=== PATIENT | male | born 1960 | race Caucasian/White ===

== ENCOUNTER → 2019-12-02 08:50 | Outpatient (BNVA) | payer MEDICARE, MEDICAID, SELFPAY | PROVIDERS: Family Provider Registered Nurse; PCP Registered Nurse; Visit Provider Internal Medicine | DX: L40.0 Psoriasis vulgaris (principal); M35.3 Polymyalgia rheumatica; M15.9 Polyosteoarthritis, unspecified; Z11.1 Encounter for screening for respiratory tuberculosis; M54.9 Dorsalgia, unspecified; G89.29 Other chronic pain | CPT/HCPCS: 80076; 82565; 85025; 85651; 86140; 86431; 86480; 99214 ==

== ENCOUNTER 2019-12-14 10:17 | Outpatient (CLI) | payer MEDICARE, MEDICAID, SELFPAY ==
--- NOTE | 2019-12-14 10:27 | XRR_ITS ---
PROCEDURE INFORMATION: Exam: XR Right Hand Exam date and time: 12/14/2019 10:39 AM Age: 59 years old Clinical indication: Pain; Hand; Bilateral; Additional info: Hand pain TECHNIQUE: Imaging protocol: XR Right hand. Views: 1 or 2 views. COMPARISON: No relevant prior studies available. FINDINGS: Bones/joints: There is no acute fracture or dislocation. Severe joint space narrowing and degenerative changes are seen involving the distal interphalangeal joint of the 5th finger. Soft tissues: Normal. XR/XR hand RT 2V [id number] IMPRESSION: 1. No acute abnormality. 2. Chronic findings as discussed above.
--- NOTE | 2019-12-14 10:27 | XRR_ITS ---
PROCEDURE INFORMATION: Exam: XR Left Hand Exam date and time: 12/14/2019 10:41 AM Age: 59 years old Clinical indication: Pain; Hand; Bilateral TECHNIQUE: Imaging protocol: XR Left hand. Views: 3 or more views. COMPARISON: No relevant prior studies available. FINDINGS: Bones/joints: There is no acute fracture or dislocation. Severe joint space narrowing and degenerative changes are seen involving the distal interphalangeal joint of the 5th finger. Soft tissues: Normal. XR/XR hand LT 2V [id number] IMPRESSION: 1. No acute abnormality. 2. Chronic findings as discussed above.
--- NOTE | 2019-12-14 10:27 | XRR_ITS ---
PROCEDURE INFORMATION: Exam: XR Bilateral Hips with Pelvis when Performed Exam date and time: 12/14/2019 10:57 AM Age: 59 years old Clinical indication: Hip pain; Bilateral TECHNIQUE: Imaging protocol: XR bilateral hips with pelvis when performed. Views: 2 views. COMPARISON: No relevant prior studies available. FINDINGS: Bones/joints: There is no acute fracture or dislocation. There is marked joint space narrowing and degenerative changes involving both hips. Mild acetabula protrusio is also noted. The findings could be the result of rheumatoid arthritis. Clinical correlation is recommended. Soft tissues: Unremarkable. XR/XR hip BI m 5V wo/w pel* [id number] IMPRESSION: Marked degenerative changes of both hips. The findings could be the result of rheumatoid arthritis. Clinical correlation is recommended.
== END 2019-12-14 10:18 | disposition home or self-care (01) ==
LOC: RAD 10:23
PROVIDERS: Family Provider Registered Nurse; PCP Registered Nurse; Visit Provider Internal Medicine
DX: Z79.899 Other long term (current) drug therapy (principal); M54.9 Dorsalgia, unspecified; G89.29 Other chronic pain; M16.0 Bilateral primary osteoarthritis of hip; M79.642 Pain in left hand; M79.641 Pain in right hand
CPT/HCPCS: 73120; 73523

== ENCOUNTER → 2019-12-23 08:40 | Outpatient (BNVA) | payer MEDICARE, MEDICAID, SELFPAY | PROVIDERS: Family Provider Registered Nurse; PCP Registered Nurse; Referring Provider Registered Nurse; Visit Provider Podiatrist Foot & Ankle Surgery | DX: L84 Corns and callosities (principal); M20.21 Hallux rigidus, right foot; E11.42 Type 2 diabetes mellitus with diabetic polyneuropathy; M21.41 Flat foot [pes planus] (acquired), right foot; I73.9 Peripheral vascular disease, unspecified; M20.41 Other hammer toe(s) (acquired), right foot; M21.42 Flat foot [pes planus] (acquired), left foot; L97.512 Non-pressure chronic ulcer of other part of right foot with fat layer exposed; M20.42 Other hammer toe(s) (acquired), left foot | CPT/HCPCS: 73630 ==

== ENCOUNTER 2019-12-23 10:33 | Outpatient (CLI) | payer MEDICARE, MEDICAID, SELFPAY | END 2019-12-23 10:34 | disposition home or self-care (01) | LOC: SPT 10:33 | PROVIDERS: Family Provider Registered Nurse; PCP Registered Nurse; Visit Provider Podiatrist Foot & Ankle Surgery | DX: Z46.89 Encounter for fitting and adjustment of other specified devices (principal); L97.512 Non-pressure chronic ulcer of other part of right foot with fat layer exposed; L84 Corns and callosities; M20.21 Hallux rigidus, right foot; E11.42 Type 2 diabetes mellitus with diabetic polyneuropathy; M21.41 Flat foot [pes planus] (acquired), right foot; I73.9 Peripheral vascular disease, unspecified; M20.41 Other hammer toe(s) (acquired), right foot; M21.42 Flat foot [pes planus] (acquired), left foot; M20.42 Other hammer toe(s) (acquired), left foot | CPT/HCPCS: 73630; 97760; L4361 ==

== ENCOUNTER → 2020-01-06 08:49 | Outpatient (BNVA) | payer MEDICARE, MEDICAID, SELFPAY | PROVIDERS: Family Provider Registered Nurse; PCP Registered Nurse; Referring Provider Dermatology; Visit Provider Dermatology | DX: L40.0 Psoriasis vulgaris (principal); B07.8 Other viral warts; I83.10 Varicose veins of unspecified lower extremity with inflammation; I83.11 Varicose veins of right lower extremity with inflammation; I83.12 Varicose veins of left lower extremity with inflammation; L91.8 Other hypertrophic disorders of the skin; L98.9 Disorder of the skin and subcutaneous tissue, unspecified | CPT/HCPCS: 17000; 17003; 99203 ==

== ENCOUNTER → 2020-03-07 08:52 | Outpatient (BNVA) | payer MEDICARE, MEDICAID, SELFPAY | PROVIDERS: Family Provider Registered Nurse; PCP Registered Nurse; Visit Provider Internal Medicine | DX: L40.50 Arthropathic psoriasis, unspecified (principal); L40.0 Psoriasis vulgaris | CPT/HCPCS: 99214 ==

== ENCOUNTER 2020-06-14 08:59 | Outpatient (CLI) | payer MEDICARE, MEDICAID, SELFPAY ==
[2020-06-14 09:38] LABS: Basophils % 0.3 %; Eosinophils # 0.1 10^3/uL (0.0-0.8); Eosinophils % 0.4 %; Hematocrit 35.7 % (42.0-52.0); Hemoglobin 11.2 g/dL (11.7-16.6); Lymphocytes # 2.2 10^3/uL (0.8-4.8); Lymphocytes % 18.5 %; Mean Corpuscular HGB Conc 31.4 g/dL (30.0-36.0); Mean Corpuscular Hemoglobin 30.3 pg (28.0-34.0); Mean Corpuscular Volume 96.5 fL (80-94); Mean Platelet Volume 8.8 fL (7.4-10.4); Monocytes # 1.1 10^3/uL (0.2-0.9); Monocytes % 9.1 %; Neutrophils % 69.3 %; Nucleated Red Blood Cells % 0 %; Platelet Count 232 10^3/cmm (130-400); Red Cell Distribution Width 14.1 % (12.1-15.1); White Blood Count 11.9 10^3/uL (4.0-10.0)
[2020-06-14 11:23] LABS: LAB Peripheral Smear Sent for Review
== END 2020-06-14 09:00 | disposition home or self-care (01) ==
PROVIDERS: PCP Registered Nurse; Visit Provider Registered Nurse
DX: D72.828 Other elevated white blood cell count (principal)
CPT/HCPCS: 36415; 80500; 85025

== ENCOUNTER → 2020-07-04 08:47 | Outpatient (BNVA) | payer MEDICARE, MEDICAID, SELFPAY | PROVIDERS: PCP Registered Nurse; Visit Provider Internal Medicine | DX: L40.50 Arthropathic psoriasis, unspecified (principal); Z11.59 Encounter for screening for other viral diseases; Z79.899 Other long term (current) drug therapy; I42.8 Other cardiomyopathies | CPT/HCPCS: 99214 ==

== ENCOUNTER 2020-07-12 07:38 | Outpatient (CLI) | payer MEDICARE, MEDICAID, SELFPAY ==
--- NOTE | 2020-07-12 08:00 | USCV_ITS ---
Jose Miguel White Age: 60 Gender: M : 1960 Exam Date: 07/12/2020 08:05 Ordering Phys: Dung Stone MD Technologist: Irwin Kruse [place] [facility] [place]: SOB BP: 120 / 72 HR: 61 Rhythm: Sinus Technical Quality: Adequate MEASUREMENTS (Male / Female) Normal Values 2D ECHO LV Diastolic Diameter PLAX 6.5 cm 4.2 - 5.9 / 3.9 - 5.3 cm LV Systolic Diameter PLAX 4.8 cm IVS Diastolic Thickness 1.0 cm 0.6 - 1.0 / 0.6 - 0.9 cm IVS Systolic Thickness 1.2 cm LVPW Diastolic Thickness 1.1 cm 0.6 - 1.0 / 0.6 - 0.9 cm LVPW Systolic Thickness 1.5 cm LVOT Diameter 2.1 cm LV Ejection Fraction 2D Teich 51.9 % LV Ejection Fraction MOD 2C 63.6 % LV Ejection Fraction 2C AL 63.1 % LA Diameter 4.4 cm LA Width 4.5 cm LA Height 6.6 cm RA Width 5.0 cm RA Height 6.5 cm M-MODE LV Diastolic Diameter MM 5.9 cm 4.2 - 5.9 / 3.9 - 5.3 cm LV Systolic Diameter MM 4.2 cm LV Ejection Fraction MM Teich 54.8 % IVS Diastolic Thickness MM 1.1 cm 0.6 - 1.0 / 0.6 - 0.9 cm IVS Systolic Thickness MM 1.8 cm LVPW Diastolic Thickness MM 1.4 cm 0.6 - 1.0 / 0.6 - 0.9 cm LVPW Systolic Thickness MM 1.6 cm RV Diastolic Diameter MM 2.1 cm Aortic Annulus Diameter 3.4 cm LA Ao Ratio MM 1.4 MV E Point Septal Separation 1.2 cm DOPPLER AV Peak Velocity 161.0 cm/s LVOT Peak Velocity 87.0 cm/s AV Area Cont Eq vti 1.8 cm squared AV Area Cont Eq pk 1.9 cm squared MV Area PHT 5.0 cm squared Mitral E to A Ratio 2.4 MV E' Velocity 65.5 cm/s Mitral E to MV E' Ratio 9.6 Mitral E to LV E' Lateral Ratio 7.5 Mitral E to LV E' Septal Ratio 13.3 TR Peak Velocity 157.0 cm/s TR Peak Gradient 9.9 mmHg Right Atrial Pressure 3.0 mmHg Pulmonary Artery Systolic Pressu 12.9 mmHg FINDINGS Left Ventricle Normal left ventricular size and systolic function, EF 66 %. No regional wall motion abnormalities. Right Ventricle The right ventricle is normal in size and function. Right Atrium The right atrium is normal in size. Left Atrium The left atrium is normal in size. Mitral Valve No gross abnormalities noted Aortic Valve Thickened aortic valve. Tricuspid Valve Mild tricuspid valve regurgitation. Pulmonic Valve No gross abnormalities noted Pericardium Dilated inferior vena cava measuring 2.9 cm in diameter. It is not visualized well Aorta Normal ascending aorta dimension. CONCLUSIONS Normal left ventricular size and systolic function, EF 66 %. No regional wall motion abnormalities. Mild tricuspid valve regurgitation. Thickened aortic valve. There is no pericardial effusion. There are no intracardiac masses. The inferior vena cava appears to be dilated.-2.9 cm No pericardial effusion. Because of the difference in the technical quality, comparison with the previous study from 02/26/[address] Aram Palencia MD [facility] (Electronically Signed) Final Date: 12 July 2020 15:14 S
== END 2020-07-12 07:39 | disposition home or self-care (01) ==
LOC: US 07:38
PROVIDERS: PCP Registered Nurse; Visit Provider Internal Medicine
DX: L40.50 Arthropathic psoriasis, unspecified (principal); R06.02 Shortness of breath; I08.2 Rheumatic disorders of both aortic and tricuspid valves
CPT/HCPCS: 93306

== ENCOUNTER 2020-09-21 09:23 | Outpatient (CLI) | payer MEDICARE, MEDICAID, SELFPAY ==
--- NOTE | 2020-09-21 09:35 | XR_ITS ---
WS: [id number] CERVICAL SPINE 3 VIEWS HISTORY: CERVICAL PAIN COMPARISON: None available. Mild increase in the cervical lordosis. C2 retrolisthesis by 2 mm. C3 retrolisthesis by [address] mm[address] Mild di sc space narrowing throughout and most significant at C3-4. Hypertrophic endplate osteophytes at all levels. No fractures. Lateral masses of C1 and C2 are aligned odontoid is intact. XR/XR cervical spine 3V* [id number] IMPRESSION: 1. No cervical spine fracture. 2. Retrolisthesis of C2 and C3. 3. Disc space narrowing most significant at C3-4.
== END 2020-09-21 09:24 | disposition home or self-care (01) ==
LOC: RADWPI 09:34
PROVIDERS: PCP Registered Nurse; Visit Provider Registered Nurse
DX: M54.2 Cervicalgia (principal)
CPT/HCPCS: 72040

== ENCOUNTER → 2020-10-05 10:13 | Outpatient (BNVA) | payer MEDICARE, MEDICAID, SELFPAY | PROVIDERS: PCP Registered Nurse; Visit Provider Internal Medicine | DX: L40.50 Arthropathic psoriasis, unspecified (principal); Z79.899 Other long term (current) drug therapy; R60.9 Edema, unspecified | CPT/HCPCS: 99213 ==

== ENCOUNTER 2021-01-05 08:39 | Outpatient (CLI) | payer MEDICARE, MEDICAID, SELFPAY ==
--- NOTE | 2021-01-05 08:50 | CT_ITS ---
WS: [id number] CT cervical spine. Additional two-dimensional coronal and sagittal reconstruction was performed. 01/05 Clinical Data: CERVICAL STENOSIS OF SPINE, CERVICAL PAIN Comparison: Cervical spine, 09/21/2020. DLP: 2343.[address] scans at [facility] use at least one of these dose optimization techniques: automat ed exposure control; mA and/or kV adjustment per patient size (includes targeted exams where dose is matched to clinical indication); or iterative reconstruction. Findings: No compression fractures are seen. There is degenerative disc narrowing at C3-C4 with a 0.3 cm retrol isthesis. There is anterior osteoarthritis at C3-C4, C4-C5 and C5-C6. The spinous processes are in go od alignment. The odontoid is unremarkable. There is no prevertebral soft tissue swelling. The soft t issues of the cervical spine and the lung apices are not remarkable. C2-C3: No disc bulge, canal stenosis or foraminal stenosis is seen. C3-C4: There is a posterior disc osteophyte complex causing canal stenosis. C4-C5: No disc bulge, canal stenosis or foraminal stenosis is seen. C5-C6: There is a posterior disc osteophyte complex causing spinal stenosis C6-C7: No disc bulge, canal stenosis or foraminal stenosis is seen. C7-T1: No disc bulge, canal stenosis or foraminal stenosis is seen. CT/CT cervical spin wo con* [id number] Impression: 1. Degenerative disc narrowing at C3-C4 through 0.3 cm retrolisthesis. 2. Osteophyte disc complex at C3-C4 and C5-C6 causing spinal stenosis. 3. Multilevel osteoarthritis.
== END 2021-01-05 08:40 | disposition home or self-care (01) ==
LOC: RADWPI 08:43
PROVIDERS: PCP Registered Nurse; Visit Provider Registered Nurse
DX: M48.02 Spinal stenosis, cervical region (principal); M54.2 Cervicalgia; M47.812 Spondylosis without myelopathy or radiculopathy, cervical region; M25.78 Osteophyte, vertebrae
CPT/HCPCS: 72125

== ENCOUNTER → 2021-03-14 10:07 | Outpatient (BNVA) | payer MEDICARE, MEDICAID, SELFPAY | PROVIDERS: PCP Registered Nurse; Visit Provider Internal Medicine | DX: Z79.899 Other long term (current) drug therapy (principal); L40.50 Arthropathic psoriasis, unspecified | CPT/HCPCS: 36415; 80053; 85025; 85651; 86140 ==

== ENCOUNTER → 2021-03-27 09:44 | Outpatient (BNVA) | payer MEDICARE, MEDICAID, SELFPAY | PROVIDERS: PCP Registered Nurse; Visit Provider Internal Medicine | DX: L40.50 Arthropathic psoriasis, unspecified (principal); L40.0 Psoriasis vulgaris; R60.0 Localized edema; R70.0 Elevated erythrocyte sedimentation rate; M54.50 Low back pain, unspecified; M16.10 Unilateral primary osteoarthritis, unspecified hip | CPT/HCPCS: 99214 ==

== ENCOUNTER → 2021-09-11 09:59 | Outpatient (BNVA) | payer MEDICARE, MEDICAID, SELFPAY | PROVIDERS: PCP Registered Nurse; Visit Provider Internal Medicine Cardiovascular Disease | DX: I42.8 Other cardiomyopathies (principal); E11.65 Type 2 diabetes mellitus with hyperglycemia; I48.20 Chronic atrial fibrillation, unspecified; Z79.01 Long term (current) use of anticoagulants; I10 Essential (primary) hypertension; R60.9 Edema, unspecified | CPT/HCPCS: 99214 ==

== ENCOUNTER → 2021-09-20 09:29 | Outpatient (BNVA) | payer MEDICARE, MEDICAID, SELFPAY | PROVIDERS: PCP Registered Nurse; Visit Provider Internal Medicine | DX: L40.50 Arthropathic psoriasis, unspecified (principal); Z79.899 Other long term (current) drug therapy | CPT/HCPCS: 99213 ==

== ENCOUNTER → 2022-01-02 09:45 | Outpatient (BNVA) | payer MEDICARE, MEDICAID, SELFPAY | PROVIDERS: PCP Registered Nurse; Referring Provider Nurse Practitioner Family; Visit Provider Orthopaedic Surgery | DX: M19.011 Primary osteoarthritis, right shoulder (principal); M16.0 Bilateral primary osteoarthritis of hip; M25.511 Pain in right shoulder | CPT/HCPCS: 73030; 99204 ==

== ENCOUNTER → 2022-06-11 10:46 | Outpatient (BNVA) | payer MEDICARE, MEDICAID, SELFPAY | PROVIDERS: PCP Registered Nurse; Visit Provider Internal Medicine Cardiovascular Disease | DX: I48.20 Chronic atrial fibrillation, unspecified (principal); I42.8 Other cardiomyopathies; E11.65 Type 2 diabetes mellitus with hyperglycemia; Z79.84 Long term (current) use of oral hypoglycemic drugs; I48.0 Paroxysmal atrial fibrillation; I10 Essential (primary) hypertension | CPT/HCPCS: 99214 ==

== ENCOUNTER → 2022-07-30 08:40 | Outpatient (BNVA) | payer MEDICARE, MEDICAID, SELFPAY | PROVIDERS: PCP Registered Nurse; Referring Provider Registered Nurse; Visit Provider Orthopaedic Surgery | DX: M06.852 Other specified rheumatoid arthritis, left hip (principal); M06.851 Other specified rheumatoid arthritis, right hip | CPT/HCPCS: 73522; 99213 ==

== ENCOUNTER 2022-08-16 11:25 | Outpatient (CLI) | payer MEDICARE, MEDICAID, SELFPAY | END 2022-08-16 11:26 | disposition home or self-care (01) | LOC: RT 08-21 11:27 | PROVIDERS: PCP Registered Nurse; Visit Provider Orthopaedic Surgery | DX: Z13.6 Encounter for screening for cardiovascular disorders (principal); I44.7 Left bundle-branch block, unspecified; Q24.8 Other specified congenital malformations of heart | CPT/HCPCS: 93005 ==

== ENCOUNTER 2022-08-26 11:55 | Observation (INO) | payer MEDICARE, MEDICAID, SELFPAY ==
[2022-08-16 13:04] VITALS: BMI 43.0
--- NOTE | 2022-08-16 13:47 | ECG_ITS ---
[facility] Test Date: 2022-08-16 Pat Name: Hira White Department: Room: Gender: Male Admin Dir: : 1960 Requested By: Darrell Alan Order Number: [id number] Bright MD: Aram Palencia M.D. Measurements Intervals [place] Rate: 84 P: 0 RI: 0 QRS: -38 QRSD: 149 T: 82 QT: 374 QTc: 443 Interpretive Statements Normal sinus rhythm LEFT AXIS DEVIATION QRS AXIS < -30 LEFT BUNDLE BRANCH BLOCK 120+ ms QRS DURATION, 80+ ms Q/S IN V1/V2, 85+ ms R IN I/aVL/V5/V6 Compared to ECG 08/18/2015 11:28:52 Left bundle-branch block now present Sinus rhythm no longer present Sinus arrhythmia no longer present Intraventricular conduction delay no longer present T-wave abnormality no longer present Possible ischemia no longer present Electronically Signed On 08-16-2022 21:59:55 MANAGER NUCLEAR by Aram Palencia M.D. [id number]
[2022-08-16 13:53] LABS: Basophils % 0.5 %; Eosinophils # 0.2 10^3/uL (0.0-0.8); Eosinophils % 3.6 %; Hematocrit 36.2 % (42.0-52.0); Lymphocytes # 1.7 10^3/uL (0.8-4.8); Lymphocytes % 29.6 %; Mean Corpuscular HGB Conc 33.1 g/dL (30.0-36.0); Mean Corpuscular Volume 90.5 fl (80-94); Mean Platelet Volume 9.4 fL (7.4-10.4); Monocytes # 0.7 10^3/uL (0.2-0.9); Monocytes % 11.9 %; Neutrophils # 3.15 10^3/uL (1.8-7.7); Neutrophils % 54.1 %; Nucleated Red Blood Cells % 0 %; Platelet Count 245 10^3/cmm (130-400); Red Cell Distribution Width 12.6 % (12.1-15.1); White Blood Count 5.8 10^3/uL (4.0-10.0)
[2022-08-16 14:09] LABS: Anion Gap 16.7 (5-19); Blood Urea Nitrogen 16 mg/dL (8-23); Calcium 9.3 mg/dL (8.5-10.5); Carbon Dioxide 28 mmol/L (22-29); Chloride 96 mmol/L (98-107); Glomerular Filtration Rate 85.8 mL/min (90-130); Glucose 110 mg/dL (65-115); Osmolality Calculated 286 mOsm/kg (285-295); Potassium 3.7 mmol/L (3.5-5.1); Sodium 137 mmol/L (136-145)
--- NOTE | 2022-08-16 14:33 | ANES.PREANE2 ---
Pre-Anesthetic Assessment Height/Weight: Height 1.7 m Weight 124.738 kg Operation Date: 08/26/22 10:00 Proposed Procedures p right total hip arthroplasty/ 81071,M16.0(Right) - Shaquille Dutton MD Familial anesthetic complications: none Was Beta Iveth taken within 24 hours: N/A Was Clonidine taken within 24 hours: N/A Social No alcohol and No tobacco Exam alert, oriented x 3, clear to auscultation bilaterally and regular rate & rhythm Airway Submandibular: within normal limits Cervical ROM: within normal limits Mallampati: Class III Dentition: partials CV/HEM Atrial Fibrillation, Anemia, Congestive Heart Failure and Hypertension Cardiomyopathy is described as the following: Patient has history of cardiomyopathy.? Previous diagnostic tests include echocardiography, myocardial perfusion imaging and cardiac catheterization.? Has some dyspnea on exertion . NO orthopnea or paroxysmal nocturnal dyspnea .? Only gaining weight because of the lack of exercise Patient was found to have low EF of 30-35% by echocardiogram . A LMM was done 06/06/2015, which revealed? an LVEF? of 26%.? The coronary angiogram revealed an LV ejection fraction of 30%, in June 2015.MUGA scan done 10/03/15.? TheLV ejection fraction is 55% based on the MUGA scan. Patient has not been able to ambulate much because of the severe back pain.? He is on pain medications.? He was tried on spinal cord column stimulator.? Apparently he has no significant improvement of the symptoms.? Because of the pain, he is very much limited in his mobility. He has been noticing swelling of both lower extremities.? The dose of the diuretic was recently increased by the primary care provider.? He also had some blood tests done in the primary care provider's office.? Results are not a while.? His shortness of breath is stable Metabolic Diabetes Mellitus, Hyperlipidemia and Morbid Obesity [facility] [place] Osteoarthritis/DJD Anesthetic Plan ASA status: 3 Anesthesia: Regional (specify below) (SAB) Medications/Allergies Home Medications Medication Instructions Recorded Confirmed Last Taken Type atorvastatin 20 mg tablet 20 mg PO DAILY 12/02/19 08/16/22 08/16/22 History celecoxib 200 mg capsule (Celebrex) 200 mg PO BID 12/02/19 08/16/22 08/16/22 History hydrocodone 10 mg-acetaminophen 1 tab PO Q6H PRN Pain 12/02/19 08/16/22 08/16/22 History 325 mg tablet oxybutynin chloride 5 mg tablet 5 mg PO DAILY 12/02/19 08/16/22 08/16/22 History CAM WALKER #1 ea 12/23/19 07/30/22 Unknown Rx Diabetic Shoes #1 ea 12/23/19 07/30/22 Unknown Rx adalimumab 40 mg/0.8 mL See Rx Instructions SUBCUT 03/07/20 08/16/22 Unknown Rx subcutaneous pen kit (Humira Pen) .COMPLEX #4 ea allopurinol 100 mg tablet 100 mg PO DAILY 09/07/20 08/16/22 08/16/22 History cholecalciferol (vitamin D3) 50 50 mcg PO DAILY 03/27/21 08/16/22 08/16/22 History mcg (2,000 unit) capsule duloxetine 60 mg capsule,delayed 60 mg PO DAILY 03/27/21 08/16/22 08/16/22 History release terazosin 5 mg capsule 5 mg PO BID 03/27/21 08/16/22 08/16/22 History bumetanide 2 mg tablet 2 mg PO DAILY 09/11/21 08/16/22 08/16/22 History gabapentin 800 mg tablet 1,200 mg PO TID 09/11/21 08/16/22 08/16/22 History amiodarone 200 mg tablet 200 mg PO DAILY #90 tabs 02/11/22 08/16/22 08/16/22 Rx rivaroxaban 20 mg tablet (Xarelto) 20 mg PO DAILY #90 tabs 07/31/22 08/16/22 08/16/22 Rx semaglutide 2 mg/dose (8 mg/3 mL) mg SUBCUT 08/16/22 Unknown History subcutaneous pen injector (Ozempic) Allergies Allergy/AdvReac Type Severity Reaction Status Date / Time Penicillins Allergy ALGY-Rash Verified 08/16/22 12:56 PFS Anesthesia Medical History Afib Cardiomyopathy Chronic atrial fibrillation Chronic back pain Diabetes High risk medication use High risk medication use joint pain Hypertension Leg edema Osteoarthritis involving multiple joints on both sides of body Plaque psoriasis Hip OA -followup with Orthopedics for injections Psoriatic arthritis Vitamin D deficiency Surgical History No pertinent past surgical history Family History Father Cancer Hypertension Stroke Brother Cancer Hypertension Sister Diabetes Mother Dementia Other Rheumatoid arthritis Denies family history of Lupus CAD (coronary artery disease) Clotting disorder Chronic kidney disease (CKD) Suicide Anesthesia complication Bleeding disorder Lung disease Social History Smoking and tobacco status: never smoked Alcohol intake: never History of recent travel: Yes (travels from [facility]) Data Anesthesia 08/16/22 13:30 08/16/22 13:30 Short CBC 08/16/22 Range/Units 13:30 WBC 5.8 (4.0-10.0) 10^3/uL Hgb 12.0 (11.7-16.6) g/dL Hct 36.2 L (42.0-52.0) % MCV 90.5 (80-94) fl Plt Count 245 (130-400) 10^3/cmm Neut % (Auto) 54.1 % Neut # (Auto) 3.15 (1.8-7.7) 10^3/uL BMP 08/16/22 13:30 Sodium 137 Potassium 3.7 Chloride 96 L Carbon Dioxide 28 BUN 16 Creatinine 0.9 Glucose 110 Calcium 9.3 Cardiac Studies: Echocardiogram Ultrasound 07/12/20
[2022-08-26] VITALS (24 sets, daily range): BP systolic 103–145; BP diastolic 48–73; PULSE 61–81; RESP 14–20; TEMP 36.4–37.3; O2SAT 93–98
--- NOTE | 2022-08-26 08:39 | P.ANESUD_ITS ---
Pre-Anesthetic Update Pre-Anesthetic Assessment: Date of Surgery/Procedure: 08/26/22 Preop Karoline gnosis: Osteoarthritis right hip Proposed Procedure: Operation Date: 08/26/22 09:45 Proposed Procedures p right total hip arthroplasty/ 12833,M16.0(Right) - Shaquille Dutton MD Any changes to Pre-Anesthetic Assessment?: No Exam: Pre-Anes Outpt Exam: alert, oriented x 3, clear to auscultation bilaterally and regular rate & rhythm Cardiac Studies: Echocardiogram Ultrasound 07/12/20
[2022-08-26] MEDS: acetaminophen 500 mg Tablet 1000 MG PO ×3 (08:47→23:46)
[2022-08-26] MEDS: CELEcoxib 200 mg Capsule 400 MG PO (08:47)
[2022-08-26] MEDS: oxyCODONE 20 mg ER (12 HR) Tablet PO (08:47)
[2022-08-26] MEDS: gabapentin 300 mg Capsule PO (08:47)
[2022-08-26] MEDS: sodium chloride 0.9% 1,000 ML 30 ML IV (08:48)
[2022-08-26 08:55] LABS: Glucose Point of Care 93 mg/dL (70-110)
--- NOTE | 2022-08-26 09:25 | P.HP_ITS ---
Same Day Surgery H&P Indication for Procedure/HPI DATE OF PROCEDURE: August 26, 2022 CHIEF COMPLAINT/INDICATIONFOR SURGICAL PROCEDURE: Right hip pain here for right total hip arthroplasty PREOP DIAGNOSIS: Osteoarthritis right hip PLANNED PROCEDURE: Operation Date: 08/26/22 09:45 Proposed Procedures p right total hip arthroplasty/ 43817,M16.0(Right) - Shaquille Dutton MD 62-year-old male here for he has gradually worsening hip pain for many years, no known injuries. He states that his pain is in the lateral thigh, which radiates to the knee. He states that his pain is worse with walking, standing, sitting, bending, and twisting. He has episodic catching and popping in the hips. He has had greated throchanteric bursa cortisone injection every 3 months for years, however this has only temporary relief. He has been on Celebrex for pain/discomfort. He has tried formal PT, however that he states his pain was to severe.? He is completely dependent on walker supporting much of his body weight with his arms due to his severe hip pain he has been under the care of Dr. Stone for his psoriatic arthritis and Dr. Palencia for his atrial fibrillation.? He reports that he is lost 170 pounds with dieting alone. Medications/Allergies* Home Medications Medication Instructions Recorded Confirmed Type atorvastatin 20 mg tablet 20 mg PO DAILY 12/02/19 08/16/22 History celecoxib 200 mg capsule (Celebrex) 200 mg PO BID 12/02/19 08/16/22 History hydrocodone 10 mg-acetaminophen 1 tab PO Q6H PRN Pain 12/02/19 08/16/22 History 325 mg tablet oxybutynin chloride 5 mg tablet 5 mg PO DAILY 12/02/19 08/16/22 History allopurinol 100 mg tablet 100 mg PO DAILY 09/07/20 08/16/22 History cholecalciferol (vitamin D3) 50 50 mcg PO DAILY 03/27/21 08/16/22 History mcg (2,000 unit) capsule duloxetine 60 mg capsule,delayed 60 mg PO DAILY 03/27/21 08/16/22 History release terazosin 5 mg capsule 5 mg PO BID 03/27/21 08/16/22 History bumetanide 2 mg tablet 2 mg PO DAILY 09/11/21 08/16/22 History gabapentin 800 mg tablet 1,200 mg PO TID 09/11/21 08/16/22 History semaglutide 2 mg/dose (8 mg/3 mL) mg SUBCUT 08/16/22 History subcutaneous pen injector (Ozempic) Allergies/Adverse Reactions Allergy/AdvReac Type Severity Reaction Status Date / Time Penicillins Allergy ALGY-Rash Verified 08/26/22 08:26 Current Medications: Generic Name Dose Route Start Last Admin Trade Name Freq PRN Reason Stop Dose Admin Sodium Chloride 1,000 mls @ 30 mls/hr 08/26/22 08:30 08/26/22 08:48 Sodium Chloride 0.9% IV 08/27/22 08:29 30 mls/hr .Q24H SALLIE Administration Pertinent History/Comorbid Conditions* Medical History (Updated 06/11/22 @ 11:26 by Aram Palencia MD) Afib Cardiomyopathy Chronic atrial fibrillation Chronic back pain Diabetes High risk medication use High risk medication use joint pain Hypertension Leg edema Osteoarthritis involving multiple joints on both sides of body Plaque psoriasis Hip OA -followup with Orthopedics for injections Psoriatic arthritis Vitamin D deficiency Surgical History (Updated 09/07/20 @ 10:24 by Aram Palencia MD) No pertinent past surgical history Family History (Updated 09/07/20 @ 10:13 by Yazmin Pichardo RN) Rheumatoid arthritis Diabetes Sister Dementia Mother Cancer Father Brother Hypertension Father Brother Stroke Father Denies family history of Lupus CAD (coronary artery disease) Clotting disorder Chronic kidney disease (CKD) Suicide Anesthesia complication Bleeding disorder Lung disease Social History Smoking and tobacco status: never smoked Alcohol intake: never History of recent travel: Yes (travels from [facility]) Pertinent Exam Findings alert, oriented x 3, clear to auscultation bilaterally, regular rate & rhythm, operative site marked and procedure specific exam findings Right hip Hira is a heavyset male in no apparent distress.? He ambulates with a walker supporting much of his body weight with his arms He has veinous stasis distal to his knees but no skin breakdown. His feet are healthy and free of wounds Right hip can be flexed only to 60 degrees and he has no internal and external rotation Palpable dorsalis pedis pulses Flexes and extends toes and ankles without motor deficits Recommendations Surgery/Procedure today Coding Level of Care Code Acute Code for Chg Fwd
[2022-08-26] MEDS: ceFAZolin 2,000 MG in sodium chloride 0.9% (plus) 50 ML 100 MG IV ×2 (09:56→17:35)
[2022-08-26] MEDS: tranexamic acid 1,000 mg/10mL SDV 1000 MG IV (10:17)
[2022-08-26] MEDS: ceFAZolin 1,000 MG in sodium chloride 0.9% (plus) 50 ML 100 MG IV (10:52)
[2022-08-26] MEDS: sodium chloride 0.9% 100 mL Bag XX (10:55)
--- NOTE | 2022-08-26 12:08 | PM.OP ---
Operative Report Date of procedure: August 26, 2022 Pre-op diagnosis: Preop Diagnosis Osteoarthritis right hip Post-op diagnosis: same Post-op diagnosis: Same Procedure done: Right total hip arthroplasty Implants: 1) Laquita 60 mm Trident 2 solid back acetabular shell 2) Size 7 [place] 127 degree neck angle Accolade 2 stem 3} 28mm -2.0 standard ceramic femoral head 4} Size G MDM metal liner Pathology: none sent Surgeon: Shaquille Dutton Anesthesia: General Estimated blood loss (mL): 700 Complications: None Findings: Patient eburnation and chondrolysis of the femoral head. Some small peripheral osteophytes were present about the inferior humeral head. No osteophytes were seen about the glenoid Condition: stable Disposition: PACU Procedure: The patient was taken to the operating room and anesthesia provided by the anesthesia service. The patient was placed in the lateral position on a pegboard. A timeout was performed. The patient was draped in the usual fashion. A 15 cm long incision was made beginning just proximal to the greater trochanter and extending posteriorly to a point just distal to the trochanter on the posterior border of the trochanter. Dissection was carried down with electrocautery through the subcutaneous fat to the fascia niraj which was divided proximally and distally with curved scissors. The anterior two thirds of the gluteus medius and minimus were elevated off the hip with electrocautery. The capsule was divided in a H-like fashion. The hip was dislocated and a neck cut made just above the level of the lesser trochanter. Exposure of the acetabulum was facilitated with the acetabular retractors. Remnants of labrum and peripheral osteophytes were removed with electrocautery and a rongeur. A reamer 2 mm under the size the femoral head was utilized to ream medially to the base of the palm and are. Reaming was then increased in 1 mm intervals until a healthy rim a trabecular bone was encountered. No additional medialization was performed with the reamers. The rim was touched with the reamer the size of the final acetabular shell to be placed. A final Trident 2 acetabular cup of the same size as the final reaming was press-fit into place. The ADM liner was secured. Attention was then focused on the femur. The canal was localized with a canal finder. Broaching was then accomplished until a stable broach size was obtained. A trial reduction with the head and neck provided excellent stability. The wound was irrigated with saline and antibiotic solution. The final [place] Accolade II stem was press-fit into place. The femoral head was placed and the hip was reduced. The hip was brought through range of motion and found to be free of impingement and stable. The anterior capsule was reapproximated with 1 Ethibond. The gluteus medius and minimus were repaired through bone with 5 Ethibond and reinforced with 1 Ethibond. The fascial niraj was closed with a running 0 Stratafix suture. Deep pelvic tissues were closed with 2-0 Stratafix and the skin with a running 4-0 l Stratafix. The skin was covered with a Prineo dressing and op site dressings.
--- NOTE | 2022-08-26 12:23 | PC.NURSE ---
Pt arrived to PACU, c/o right hip pain 12/23, ice pack applied, right toes p/w/d, cap refill <3 seconds, good pedal pulse, able to wiggles toes on right foot. Pt had spinal, sensation below level L3, Pt denies any numbness except for left toes.
--- NOTE | 2022-08-26 12:27 | XR_ITS ---
WS: [id number] XR hip RT 1V wo/w pel [id number] REASON FOR EXAM: Total hip arthroplasty FINDINGS: Total right hip arthroplasty. Components of the arthroplasty are in proper position and alignment. No bony abnormality. XR/XR hip RT 1V wo/w pel [id number] IMPRESSION: Total right hip arthroplasty without abnormality.
[2022-08-26] MEDS: fentaNYL 50 mcg/mL INJ 2mL IVP ×2 (12:30→12:46)
[2022-08-26] MEDS: oxyCODONE 5 mg IR Tab/Cap 10 MG PO ×4 (14:22→23:46)
[2022-08-26] MEDS: gabapentin 400 mg Capsule 1200 MG PO ×2 (14:22→21:01)
[2022-08-26] MEDS: sodium chloride 0.9% 1,000 ML 100 ML IV ×2 (14:23→23:46)
--- NOTE | 2022-08-26 16:52 | ANE.PACU2 ---
Inpatient post-anesthesia follow up: Airway intact: Yes Vital signs: Temperature 97.7 F Pulse Rate 76 Respiratory Rate 16 Blood Pressure 109/68 Pulse Oximetry 94 Oxygen Delivery Me thod Room Air Oxygen Flow Rate 0 Fraction of Inspir ed Oxygen Hydration adequate: Yes Nausea and vomiting: No Pain level: 2 Mental status: Baseline
[2022-08-26] MEDS: terazosin 5 mg Capsule PO (17:34)
[2022-08-26] MEDS: sennosides-docusate Tablet 2 TAB PO (17:34)
[2022-08-26] MEDS: CELEcoxib 200 mg Capsule PO (21:02)
[2022-08-27] VITALS: BP 115/68; PULSE 86; RESP 17; TEMP 37.1; O2SAT 95
[2022-08-27] MEDS: ceFAZolin 2,000 MG in sodium chloride 0.9% (plus) 50 ML 100 MG IV (01:44)
[2022-08-27 05:06] LABS: Hemoglobin 9.6 g/dL (11.7-16.6)
[2022-08-27] MEDS: gabapentin 400 mg Capsule 1200 MG PO (07:56)
[2022-08-27 07:57] VITALS: RESP 16
[2022-08-27] MEDS: duloxetine 60 mg Capsule PO (07:57)
[2022-08-27] MEDS: terazosin 5 mg Capsule PO (07:57)
[2022-08-27] MEDS: sennosides-docusate Tablet 2 TAB PO (07:57)
[2022-08-27] MEDS: CELEcoxib 200 mg Capsule PO (07:57)
[2022-08-27] MEDS: oxyCODONE 5 mg IR Tab/Cap 10 MG PO (07:57)
[2022-08-27] MEDS: atorvastatin 40 mg Tablet 20 MG PO (07:58)
[2022-08-27] MEDS: allopurinol 100 mg Tablet PO (07:58)
[2022-08-27] MEDS: acetaminophen 500 mg Tablet 1000 MG PO (07:58)
[2022-08-27] MEDS: bumetanide 1 mg Tablet 2 MG PO (07:58)
[2022-08-27] MEDS: rivaroxaban 10 mg Tablet 20 MG PO (07:58)
[2022-08-27] MEDS: oxybutynin 5 mg Tablet PO (07:58)
[2022-08-27] MEDS: amiodarone 200 mg Tablet PO (07:58)
[2022-08-27 08:00] VITALS: BP 118/75; PULSE 86; RESP 16; O2SAT 95
--- NOTE | 2022-08-27 08:11 | PM.DCS ---
Discharge Providers Date of Admission: 08/26/22 11:55 Date of Discharge: August 27, 2022 Attending Provider at Admission: Shaquille Jones MD Attending Provider at Discharge: Shaquille Jones MD Primary Care Provider: Mckenna Rodriguez Diagnoses at Discharge Discharge Diagnosis (1) Status post right hip replacement: Status: Acute (2) Psoriatic arthritis: Status: Acute (3) Chronic atrial fibrillation: Status: Acute Reason for Visit Reason for Visit: M16.0 Brief History: The patient is a 62-year-old morbidly obese male with chronic hip pain secondary to degeneration. He was admitted for elective right total hip arthroplasty control pain improved function. Hospital Course Hospital Course The patient tolerated surgery well. They remained hemodynamically stable. They was begun on Xarelto and sequential compressive dressing for DVT prophylaxis. The patient was mobilized with therapy beginning the day of surgery and by the first postoperative day independent with the walker. As the pain was adequately controlled and they were fully mobile they were discharged home. Physical Exam Narrative: On the day of discharge the hip incision was clean. The incision was free of drainage. They had no particular swelling about the thigh or distal. No distal neurovascular deficits were noted. Discharge Data Studies Completed and Pending Completed Studies During Hospitalization Category Date Time Status XR hip RT 1V wo/w pel [id number] Routine Exams 08/26/22 12:27 Completed Radiology Impressions Hip X-Ray 08/26/22 12:27 IMPRESSION: Total right hip arthroplasty without abnormality. Laboratory Results WBC 5.8 10^3/uL (4.0-10.0) 08/16/22 13:30 RBC 4.00 10^6/uL (4.1-5.3) L 08/16/22 13:30 Hgb 9.6 g/dL (11.7-16.6) L 08/27/22 04:29 Hct 36.2 % (42.0-52.0) L 08/16/22 13:30 MCV 90.5 fl (80-94) 08/16/22 13:30 MCH 30.0 pg (28.0-34.0) 08/16/22 13:30 MCHC 33.1 g/dL (30.0-36.0) 08/16/22 13:30 RDW 12.6 % (12.1-15.1) 08/16/22 13:30 Plt Count 245 10^3/cmm (130-400) 08/16/22 13:30 MPV 9.4 fL (7.4-10.4) 08/16/22 13:30 Neut % (Auto) 54.1 % 08/16/22 13:30 Lymph % (Auto) 29.6 % 08/16/22 13:30 Campbell % (Auto) 11.9 % 08/16/22 13:30 Eos % (Auto) 3.6 % 08/16/22 13:30 Baso % (Auto) 0.5 % 08/16/22 13:30 Neut # (Auto) 3.15 10^3/uL (1.8-7.7) 08/16/22 13:30 Lymph # (Auto) 1.7 10^3/uL (0.8-4.8) 08/16/22 13:30 Campbell # (Auto) 0.7 10^3/uL (0.2-0.9) 08/16/22 13:30 Eos # (Auto) 0.2 10^3/uL (0.0-0.8) 08/16/22 13:30 Baso # (Auto) 0.0 10^3/uL (0.0-0.1) 08/16/22 13:30 Nucleated RBC % (auto) 0 % 08/16/22 13:30 Nucleated RBCs # 0.0 /100WBC 08/16/22 13:30 Sodium 137 mmol/L (136-145) 08/16/22 13:30 Potassium 3.7 mmol/L (3.5-5.1) 08/16/22 13:30 Chloride 96 mmol/L (98-107) L 08/16/22 13:30 Carbon Dioxide 28 mmol/L (22-29) 08/16/22 13:30 Anion Gap 16.7 (5-19) 08/16/22 13:30 BUN 16 mg/dL (8-23) 08/16/22 13:30 Creatinine 0.9 mg/dL (0.7-1.2) 08/16/22 13:30 GFR Calculation 85.8 mL/min (90-130) L 08/16/22 13:30 Glucose 110 mg/dL (65-115) 08/16/22 13:30 POC Glucose 93 mg/dL (70-110) 08/26/22 08:52 Calculated Osmolality 286 mOsm/kg (285-295) 08/16/22 13:30 Calcium 9.3 mg/dL (8.5-10.5) 08/16/22 13:30 Vitals Last Vital Signs Temp 98.8 F 08/27/22 00:00 Pulse 86 08/27/22 00:00 Resp 16 08/27/22 07:57 BP 115/68 08/27/22 00:00 Pulse Ox 95 08/27/22 00:00 O2 Del Method 08/26/22 18:10 O2 Flow Rate 0 08/26/22 10:35 Discharge Plan Discharge Patient Disposition: Home Condition: Stable Prescriptions: New oxycodone 5 mg Tablet 10 mg PO Q4H PRN (Reason: Moderate Pain) 7 Days Qty: 40 0RF Continued allopurinol 100 mg tablet 100 mg PO DAILY bumetanide 2 mg tablet 2 mg PO DAILY hydrocodone-acetaminophen 10-325 mg tablet 1 tab PO Q6H PRN (Reason: Pain) celecoxib [Celebrex] 200 mg capsule 200 mg PO BID oxybutynin chloride 5 mg tablet 5 mg PO DAILY atorvastatin 20 mg tablet 20 mg PO DAILY gabapentin 800 mg tablet 1,200 mg PO TID Humira Pen 40 mg/0.8 mL pen injector kit See Rx Instructions SUBCUT .COMPLEX Qty: 4 5RF Rx Instructions: inject one - 40 mg/0.8 mL pen every 2 weeks SUBCUT (DME) Diabetic Shoes See Rx Instructions .ROUTE .MEDSUPPLY Qty: 1 0RF Rx Instructions: As directed (DME) MIRA PLUNKETT See Rx Instructions .ROUTE .MEDSUPPLY Qty: 1 0RF Rx Instructions: As directed terazosin 5 mg capsule 5 mg PO BID cholecalciferol (vitamin D3) 50 mcg (2,000 unit) capsule 50 mcg PO DAILY duloxetine 60 mg capsule,delayed release(DR/EC) 60 mg PO DAILY amiodarone 200 mg tablet 200 mg PO DAILY Qty: 90 3RF Xarelto 20 mg tablet 20 mg PO DAILY Qty: 90 3RF Rx Instructions: must administer with evening meal Ozempic 2 mg/dose (8 mg/3 mL) Pen Injector SUBCUT Discharge Orders: Discharge Order (Routine); Ordered 08/27/22 Ordered By: Shaquille Jones Referrals: Shaquille Jones MD [Physician] - 09/10/22 10:30 am Discharge Diet: Advance as tolerated Discharge Activity: Limit activity as instructed Patient Instructions: Opioid Safety Activity Restrictions/Additional Instructions: Okay to shower. No soaking incision in tub Apply FirstIce up to 20 min/hr for pain and swelling Take oxycodone for breakthrough pain improved with hydrocodone baseline regimen Exercises per physical therapy. May weight-bear as tolerated on total hip arthroplasty IF HAVE ANY PROBLEMS OR QUESTIONS CALL [facility] SERVICE TECHNICIAN AT AND ASK TO HAVE DR. JONES PAGED. Discharge Attestations Time Spent in Discharge Care*: other Quality Metrics Clinical Quality Measures [ No reported AMI, CVA or VTE this stay] Coding Level of Care Code Acute Code for Chg Fwd Diagnoses Status post right hip replacement Z96.641 Psoriatic arthritis L40.50 Chronic atrial fibrillation I48.20
--- NOTE | 2022-08-27 08:32 | SUR.EXTENDED ---
physical therapy with patient
--- NOTE | 2022-08-27 10:16 | PC.CHAP ---
Pastoral Care Encounter/Spiritual Assessment Type of Contact [] Declined marketing services coordinator visit [] Patient/Family/Request visit [] Outpatient visit [] Follow-up visit [] Physician referral [] Code/Alert [xx] Routine visit [] Staff referral [] Actively dying [] Patient sleeping x[] Family support [] [] Out of room [] Palliative care [] [] Receiving care in room [] Pre-surgical visit [] Trauma [] Long length of stay [] ICU visit [] Other: Relational/Emotional Strength [x] Patient feels connected with others/family/visitors/staff [] Distress [] Loneliness/isolation [] Abandonment Spirituality of Patient [x] Person of Charlene [] Attends [employer]ian of their Charlene [] Believes in Prayer [] Reads Bible or Jain materials [] There are Spiritual issues to be addressed Consulting Systems Engineer Interventions [x] Prayer [x] Active listening []x Non-anxious presence [] Spiritual/emotional support [] Crisis/trauma care [] Spiritual counseling [] Bereavement support [] Provided bereavement packet [] Provided Bible/devotional materials [] Provided toy/stuffed animal, coloring book to patient or family member [] Provided Communion [] Anointing/[place] [] Salvation [x] Completed spiritual assessment [] Other: Impact on Illness or Injury [] Angry [] Fearful [] Anxious [] Often cries [] Exhaustion [] Unable to work [] Unable to attend gnosticist [] Unable to walk/stand [] Unable to read [] Unable to drive [] Unable to eat/drink [] Unable to sleep [] Unable to be with family [] Patient intubated [] Other: Summary Time spent with patient 10 min
[2022-08-27 10:31] VITALS: BP 118/75; PULSE 86; RESP 16; O2SAT 95
--- NOTE | 2022-08-27 12:18 | PC.OT ---
OT EVALUATION NOT ATTEMPTED DUE TO PATIENT DISCHARGED BEFORE EVALUATION COULD BE COMPLETED.
== END 2022-08-27 10:32 | disposition home health service (06) ==
LOC: MEDSURG 11:55
PROVIDERS: Anesthesiology; Admitting Provider Orthopaedic Surgery; PCP Registered Nurse; Visit Provider Orthopaedic Surgery
PROC: (CPT 27130; principal; 2022-08-26 09:15)
DX: M16.11 Unilateral primary osteoarthritis, right hip (principal); I11.0 Hypertensive heart disease with heart failure; I50.9 Heart failure, unspecified; I48.20 Chronic atrial fibrillation, unspecified; E11.9 Type 2 diabetes mellitus without complications; E78.5 Hyperlipidemia, unspecified; E66.01 Morbid (severe) obesity due to excess calories; Z68.41 Body mass index [BMI] 40.0-44.9, adult; Z79.899 Other long term (current) drug therapy
CPT/HCPCS: 27130; 36416; 73501; 80048; 82962; 85018; 85025; 97110; 97116; 97161; 97530; C1776; G0378; J0690; J1580; J2704; J3010; J7030

== ENCOUNTER → 2022-09-10 09:12 | Outpatient (BNVA) | payer MEDICARE, MEDICAID, SELFPAY | PROVIDERS: PCP Registered Nurse; Visit Provider Orthopaedic Surgery | DX: Z47.89 Encounter for other orthopedic aftercare (principal); Z96.641 Presence of right artificial hip joint | CPT/HCPCS: 99024 ==

== ENCOUNTER → 2022-10-08 09:40 | Outpatient (BNVA) | payer MEDICARE, MEDICAID, SELFPAY | PROVIDERS: PCP Registered Nurse; Visit Provider Orthopaedic Surgery | DX: Z47.89 Encounter for other orthopedic aftercare (principal); Z96.641 Presence of right artificial hip joint | CPT/HCPCS: 99024 ==

== ENCOUNTER 2022-10-30 01:48 | Inpatient (IN) | payer MEDICARE, MEDICAID, SELFPAY ==
[2022-10-30] VITALS (45 sets, daily range): BP systolic 63–135; BP diastolic 40–94; PULSE 69–105; RESP 10–35; TEMP 36.8–37.8; O2SAT 81–100; BMI 39.0; BMI 40.8
--- NOTE | 2022-10-30 01:56 | CTR_ITS ---
PROCEDURE INFORMATION: Exam: CT Head Without Contrast Exam date and time: 10/30/2022 2:24 AM Age: 62 years old Clinical indication: Injury or trauma; Fall; Patient HX: Patient fell at home this a. M. Landing on both knees and striking back of head on furniture. Hypotensive on monitor 62 systolic. Lactic of 4.7. Wbc of 20k. Creat of 2.8 TECHNIQUE: Imaging protocol: Computed tomography of the head without contrast. Radiation optimization: All CT scans at this facility use at least one of these dose optimization techniques: automated exposure control; mA and/or kV adjustment per patient size (includes targeted exams where dose is matched to clinical indication); or iterative reconstruction. REPORTING DATA: Count of CT and Cardiac NM exams in prior 12 months: This patient has received [address] and 0 known cardiac nuclear medicine studies in the 12 months prior to the current study. COMPARISON: CT cervical spin wo con* [id number] 01/05/2021 9:07 AM RADIATION DOSE METRICS: Total DLP (mGy-cm): 1165.51 FINDINGS: Brain: No cerebral/cerebellar infarct. No brain parenchymal or extra-axial hemorrhage. Cerebral ventricles: No ventriculomegaly. Paranasal sinuses: Paranasal sinuses are clear. No air-fluid level. Mastoid air cells: Visualized mastoid air cells are clear. Bones/joints: No calvarial or skull base fracture. Soft tissues: Unremarkable. CT/CT head wo con* [id number] IMPRESSION: 1. No acute infarct or hemorrhage. 2. No calvarial or skull base fracture.
--- NOTE | 2022-10-30 01:56 | CTR_ITS ---
PROCEDURE INFORMATION: Exam: CT Cervical Spine Without Contrast Exam date and time: 10/30/2022 2:27 AM Age: 62 years old Clinical indication: Injury or trauma; Fall; Blunt trauma; Patient HX: Patient fell at home this a. M. Landing on both knees and striking back of head on furniture. Hypotensive on monitor 62 systolic. Lactic of 4.7. Wbc of 20k. Creat of 2.8 TECHNIQUE: Imaging protocol: Computed tomography of the cervical spine without contrast. Radiation optimization: All CT scans at this facility use at least one of these dose optimization techniques: automated exposure control; mA and/or kV adjustment per patient size (includes targeted exams where dose is matched to clinical indication); or iterative reconstruction. REPORTING DATA: Count of CT and Cardiac NM exams in prior 12 months: This patient has received [address] and 0 known cardiac nuclear medicine studies in the 12 months prior to the current study. COMPARISON: CT cervical spin wo con* [id number] 01/05/2021 9:07 AM RADIATION DOSE METRICS: Total DLP (mGy-cm): 461.17 FINDINGS: Bones/joints: Craniocervical articulation is normal. There is 4 mm retrolisthesis of C3 on C4, likely degenerative with severe disc space narrowing, secondary to degenerative disease. Severe intervertebral disc space narrowing at C5-C6. The dens is intact. The lateral masses of C1 are symmetric. No fracture. Lungs: Lung apices are normal. Soft tissues: Unremarkable. CT/CT cervical spin wo con* [id number] IMPRESSION: 1. No fracture. 2. There is 4 mm retrolisthesis of C3 on C4, likely degenerative with severe disc space narrowing, secondary to degenerative disease.
--- NOTE | 2022-10-30 01:56 | XRR_ITS ---
PROCEDURE INFORMATION: Exam: XR Right Knee Exam date and time: 10/30/2022 2:11 AM Age: 62 years old Clinical indication: Injury or trauma; Fall; Blunt trauma; Right; Patient HX: Patient fell at home this a. M. Landing on both knees and striking back of head on furniture. Hypotensive on monitor 62 systolic. Lactic of 4.7. Wbc of 20k. Creat of 2.8 TECHNIQUE: Imaging protocol: Radiologic exam of the right knee. Views: 3 views. COMPARISON: No relevant prior studies available. FINDINGS: Bones/joints: Normal. Soft tissues: Normal. XR/XR knee RT 3V* [id number] IMPRESSION: No acute findings.
--- NOTE | 2022-10-30 01:56 | XRR_ITS ---
PROCEDURE INFORMATION: Exam: XR Left Knee Exam date and time: 10/30/2022 2:08 AM Age: 62 years old Clinical indication: Injury or trauma; Fall; Blunt trauma; Left; Patient HX: Patient fell at home this a. M. Landing on both knees and striking back of head on furniture. Hypotensive on monitor 62 systolic. Lactic of 4.7. Wbc of 20k. Creat of 2.8 TECHNIQUE: Imaging protocol: Radiologic exam of the left knee. Views: 3 views. COMPARISON: No relevant prior studies available. FINDINGS: Bones/joints: Normal. Soft tissues: Normal. XR/XR knee LT 3V* [id number] IMPRESSION: No acute findings.
--- NOTE | 2022-10-30 01:57 | ECG_ITS ---
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 Measurements Intervals [place] Rate: 81 P: 0 [place]: 0 QRS: -49 QRSD: 155 T: 21 QT: 416 QTc: 484 Interpretive Statements SINUS RHYTHM INTRAVENTRICULAR CONDUCTION DELAY [130+ ms QRS DURATION] POSSIBLE LATERAL MYOCARDIAL INFARCTION , PROBABLY OLD [30 ms Q WAVE IN I/aVL/V5/V6] Compared to ECG 08/16/2022 13:47:39 Intraventricular conduction delay now present Myocardial infarct finding now present Left-axis deviation no longer present Left bundle-branch block no longer present Electronically Signed On 10-30-2022 17:49:30 CDT by Rinku Mireles M.D. [id number]
--- NOTE | 2022-10-30 01:57 | XRR_ITS ---
PROCEDURE INFORMATION: Exam: XR Chest Exam date and time: 10/30/2022 2:07 AM Age: 62 years old Clinical indication: Injury or trauma; Fall; Blunt trauma (contusions or hematomas); Patient HX: Patient fell at home this a. M. Landing on both knees and striking back of head on furniture. Hypotensive on monitor 62 systolic. Lactic of 4.7. Wbc of 20k. Creat of 2.8; Additional info: Cp TECHNIQUE: Imaging protocol: Radiologic exam of the chest. Views: 1 view. COMPARISON: CR XR chest 2V* [id number] 02/09/2016 11:44 AM FINDINGS: Lungs: There are low lung volumes. Otherwise, the lungs are clear. Pleural spaces: Unremarkable. No pleural effusion. No pneumothorax. Heart/Mediastinum: There is mild cardiomegaly. Bones/joints: Unremarkable. XR/XR chest 1V portable [id number] IMPRESSION: 1. Mild cardiomegaly. 2. There are low lung volumes. Otherwise, the lungs are clear.
[2022-10-30 02:02] LABS: Hematocrit 38.1 % (42.0-52.0); Hemoglobin 12.3 g/dL (11.7-16.6); Mean Corpuscular HGB Conc 32.3 g/dL (30.0-36.0); Mean Corpuscular Hemoglobin 30.4 pg (28.0-34.0); Mean Corpuscular Volume 94.3 fl (80-94); Mean Platelet Volume 9.4 fL (7.4-10.4); Platelet Count 151 10^3/cmm (130-400); Red Blood Count 4.04 10^6/uL (4.1-5.3); Red Cell Distribution Width 13.4 % (12.1-15.1); White Blood Count 20.1 10^3/uL (4.0-10.0)
--- NOTE | 2022-10-30 02:02 | ED_ITS ---
HPI - Fall General: Chief Complaint: Fall Stated Complaint: FALL Time Seen by Provider: 10/30/22 01:52 Source: patient and EMS Mode of arrival: EMS Limitations: no limitations History of Present Illness: 62-year-old male who states that he typically walks with a walker he has had his right hip replaced is obese he states that he had tipped up out of his chair and tried to stand up and fell over. He states he had his head on some furniture he does have a laceration to posterior scalp. States he had landed on his knees going to some bilateral knee pain along with head pain he believes he did lose consciousness he does not really remember he denies any pain elsewhere. He does have chronic swelling to his legs with edema his right leg has been more swollen though he has been having some burning pain in it. Patient is severely hypotensive here his blood pressures in the 60s denies any fevers Associated symptoms-after fall: Reports headache(s); Denies abdominal pain, chest pain or neck pain Review of Systems Const: Denies: fever(s) or chills Eyes: Denies: eye discomfort ENMT: Denies: throat pain or dental pain Card: Denies: chest pain Resp: Denies: dyspnea GI: Denies: abdominal pain, nausea, vomiting or diarrhea Musc: Reports: extremity pain; Denies: neck pain or back pain Skin/Breast: Denies: rash Neuro: Reports: headache(s) PFSH ED PFSH: Medical History Afib Cardiomyopathy Chronic atrial fibrillation Chronic back pain Diabetes High risk medication use High risk medication use joint pain Hypertension Leg edema Osteoarthritis involving multiple joints on both sides of body Plaque psoriasis Hip OA -followup with Orthopedics for injections Psoriatic arthritis Vitamin D deficiency Surgical History No pertinent past surgical history Family History Father Cancer Hypertension Stroke Brother Cancer Hypertension Sister Diabetes Mother Dementia Other Rheumatoid arthritis Denies family history of Lupus CAD (coronary artery disease) Clotting disorder Chronic kidney disease (CKD) Suicide Anesthesia complication Bleeding disorder Lung disease Social History Smoking and tobacco status: never smoked Alcohol intake: never Substance/Drug Use: never Physical Exam Const: COMMON NORMALS: patient oriented x3 GENERAL APPEARANCE: ill appearing HENMT: COMMON NORMALS: normocephalic HEAD & SCALP: normocephalic OTHER: 2cm laceration to right scalp Eye: COMMON NORMALS: Equal, round and reactive pupils present and EOMs intact bilaterally PUPIL: Yes Equal, round and reactive pupils present Neck/C-Spine: COMMON NORMALS: full ROM and supple Chest: COMMONS NORMALS: normal inspection of the chest and normal palpation of entire chest wall Resp: COMMON NORMALS: normal respiratory effort, No retractions, No use of accessory muscles and clear to auscultation bilaterally AUSCULTATION: clear to auscultation bilaterally Cardio: COMMON NORMALS: regular rate, regular rhythm and No murmurs present (Cardio) RATE: regular rate RHYTHM: regular rhythm GI: COMMON NORMALS: Normal to inspection, nondistended, normoactive bowel sounds present, Soft to palpation, non-tender and no masses PALPATION: Yes Soft to palpation Extremity: COMMON NORMALS: normal to inspection and full ROM Neuro: COMMON NORMALS: patient oriented x3, moves all extremities and no focal motor deficits Psych: COMMON NORMALS: mental status grossly normal, Normal thought process present and cooperative THOUGHT PROCESS: Normal thought process present Skin: COMMON NORMALS: no wounds NARRATIVE SKIN EXAM: Swelling to right lower leg some slight erythema as well. Procedures Central Line Placement Right IJ: Time Out Performed: Yes Patient Placed on Monitor/Pulse Ox: Yes MD Prep: mask, gown and gloves Central Line Prep: Chlorhexidine scrub Local Anesthetic: lidocaine 1% Amount of anesthesia used (mL): 3 Ultrasound Used for Placement: Yes Central Line Lumen Inserted: triple Post Procedure: sutured in place, good blood return, all ports aspirated, flushed, capped and sterile dressing applied Post Procedure X-Ray: tip of catheter in good position and no pneumothorax seen Patient Tolerated Procedure: well Complications: none Laceration Laceration 1: Site: scalp Side (If applicable): right Size (cm): 2 Description: linear Depth: simple, single layer Local Anesthetic: lidocaine 1% Amount of anesthesia used (mL): 8 Pre-repair: wound explored and irrigated extensively Skin layer closed with: other (3 [place]) Course Vital Signs: Vital signs: Vital Signs Temperature 98.2 F 10/30/22 01:49 Pulse Rate 78 10/30/22 02:05 Respiratory Rate 18 10/30/22 01:49 Blood Pressure 70/40 10/30/22 02:05 Pulse Oximetry 93 10/30/22 02:06 Oxygen Delivery Me thod Room Air 10/30/22 02:06 MDM - Fall Medical Decision Making Patient presents after a fall he does have a head laceration was repaired he has no signs of any major trauma from his fall his imaging here is all normal he has been severely hypotensive blood pressures in the 60s and 70s he does have a white count of 20 and elevated lactate consistent with sepsis. Patient was given a 2 L bolus did not give more fluids due to his cardiomyopathy and already have an elevated BNP and would likely fluid overloading patient had a central line placed started on pressors along with IV antibiotics. Lab Data 10/30/22 01:55 10/30/22 01:55 Radiology Impressions Cervical Spine CT 10/30/22 01:56 IMPRESSION: 1. No fracture. 2. There is 4 mm retrolisthesis of C3 on C4, likely degenerative with severe disc space narrowing, secondary to degenerative disease. Head CT 10/30/22 01:56 IMPRESSION: 1. No acute infarct or hemorrhage. 2. No calvarial or skull base fracture. Knee X-Ray 10/30/22 01:56 IMPRESSION: No acute findings. Chest/Abdomen/Pelvis CT 10/30/22 02:09 IMPRESSION: 1. No evidence of acute injury. 2. Mild cardiomegaly. IMPRESSION: 1. No evidence of acute injury. 2. 5 mm nonobstructing left renal pelvis stone. 3. Mild constipation. 4. Multiple fat containing ventral hernias, largest is 4.5 cm. 5. Severe left hip osteoarthritis. Chest X-Ray 10/30/22 03:06 IMPRESSION: 1. Patient is rotated to the right and there is a poor inspiration. 2. Right central venous catheter with tip overlying the overlies the proximal superior vena cava. No pneumothorax. Venous Duplex 10/30/22 03:37 IMPRESSION: 1. Multiple nonspecific enlarged right inguinal lymph nodes. 2. No DVT. Laboratory Results WBC 20.1 10^3/uL (4.0-10.0) H 10/30/22 01:55 RBC 4.04 10^6/uL (4.1-5.3) L 10/30/22 01:55 Hgb 12.3 g/dL (11.7-16.6) 10/30/22 01:55 Hct 38.1 % (42.0-52.0) L 10/30/22 01:55 MCV 94.3 fl (80-94) H 10/30/22 01:55 MCH 30.4 pg (28.0-34.0) 10/30/22 01:55 MCHC 32.3 g/dL (30.0-36.0) 10/30/22 01:55 RDW 13.4 % (12.1-15.1) 10/30/22 01:55 Plt Count 151 10^3/cmm (130-400) 10/30/22 01:55 MPV 9.4 fL (7.4-10.4) 10/30/22 01:55 Lymph % (Auto) Not Reportable 10/30/22 01:55 Menard % (Auto) Not Reportable 10/30/22 01:55 Lymph # (Auto) Not Reportable 10/30/22 01:55 [place] # (Auto) Not Reportable 10/30/22 01:55 Total Counted 100 (0-100) 10/30/22 01:55 Atypical Lymphs % 0.0 % (0-5) 10/30/22 01:55 Absolute Neutrophils 18.9 10^3/cmm (1.4-6.5) H 10/30/22 01:55 Segmented Neutrophils 75 % 10/30/22 01:55 Abs Segm Neuts (Man) 15.1 10/cmm (1.6-7.1) H 10/30/22 01:55 Band Neutrophils 19.0 % 10/30/22 01:55 Abs Band Neuts (Man) 3.8 10^3/cmm (0.0-1.2) H 10/30/22 01:55 Absolute Lymphocytes 0.8 10^3/cmm (1.2-3.4) L 10/30/22 01:55 Lymphocytes (Manual) 4 % 10/30/22 01:55 Monocytes (Manual) 2.0 % 10/30/22 01:55 Absolute Monocytes 0.4 10^3/cmm (0.1-0.6) 10/30/22 01:55 Eosinophils (Manual) 0 % 10/30/22 01:55 Absolute Eosinophils 0.0 10^3/cmm (0.0-0.7) 10/30/22 01:55 Basophils (Manual) 0.0 % 10/30/22 01:55 Absolute Basophils 0.0 10^3/cmm (0.0-0.2) 10/30/22 01:55 Platelet Estimate Normal (Normal) 10/30/22 01:55 Sodium 132 mmol/L (136-145) L 10/30/22 01:55 Potassium 3.6 mmol/L (3.5-5.1) 10/30/22 01:55 Chloride 93 mmol/L (98-107) L 10/30/22 01:55 Carbon Dioxide 21 mmol/L (22-29) L 10/30/22 01:55 Anion Gap 21.6 (5-19) H 10/30/22 01:55 BUN 29 mg/dL (8-23) H 10/30/22 01:55 Creatinine 2.8 mg/dL (0.7-1.2) H 10/30/22 01:55 GFR Calculation 23.2 mL/min (90-130) L 10/30/22 01:55 Glucose 145 mg/dL (65-115) H 10/30/22 01:55 Calculated Osmolality 282 mOsm/kg (285-295) L 10/30/22 01:55 Lactic Acid 4.7 mmol/L (0.5-2.2) H* 10/30/22 02:15 Calcium 9.1 mg/dL (8.5-10.5) 10/30/22 01:55 Total Bilirubin 0.6 mg/dL (0.15-1.2) 10/30/22 01:55 AST 21 U/L (0-40) 10/30/22 01:55 ALT 18 U/L (0-41) 10/30/22 01:55 Alkaline Phosphatase 71 U/L (40-130) 10/30/22 01:55 Troponin T Baseline 48 ng/L (0-15) H 10/30/22 01:55 NT-Pro-B Natriuret Pep 1001 pg/mL (0-125) H 10/30/22 01:55 Total Protein 6.9 g/dL (6.6-8.7) 10/30/22 01:55 Albumin 3.8 g/dL (3.5-5.2) 10/30/22 01:55 Globulin 3.1 g/dL (1.3-4.6) 10/30/22 01:55 Urine Color Yellow (Yellow) 10/30/22 04:09 Urine Appearance Sl hazy (CLEAR) A 10/30/22 04:09 Urine pH 5 (5-7) 10/30/22 04:09 Ur Specific [place] 1.015 (1.005-1.030) 10/30/22 04:09 Urine Protein Neg (Negative) 10/30/22 04:09 Urine Glucose (UA) Norm (Normal) 10/30/22 04:09 Urine Ketones Negative (Negative) 10/30/22 04:09 Urine Blood Neg (Negative) 10/30/22 04:09 Urine Nitrate Negative (Negative) 10/30/22 04:09 Urine Bilirubin Neg (Negative) 10/30/22 04:09 Urine Urobilinogen Neg mg/dL (Negative) 10/30/22 04:09 Ur Leukocyte Esterase 1+ (Negative) H 10/30/22 04:09 Urine RBC 0-4 /hpf (0-2) H 10/30/22 04:09 Urine WBC 5-10 /hpf (0-5) H 10/30/22 04:09 Ur Squamous Epith Cells 0-4 /hpf (0-5) H 10/30/22 04:09 Amorphous Sediment Not Reportable 10/30/22 04:09 Urine Bacteria 3+ /hpf (NONE) H 10/30/22 04:09 Urine Mucus 2+ /hpf 10/30/22 04:09 Critical Care Time Critical Care Time: Critical Care Time: Yes Total Critical Care Time: 45 Attestation: The high probability of a clinically significant, sudden or life threatening deterioration of the patient's endo system(s) required my full and direct attention, intervention and personal management. The critical care time is as shown. This time is in addition to time spent performing any reported procedures but includes the following: [x] Data and vital sign review and interpretation [x] Patient assessment, examination and intervention [x] Documentation [x] Medication orders and management Discharge Plan Discharge Patient Disposition: Admitted As Inpatient Clinical Impression: Fall, Laceration of head, Acute cystitis, Sepsis Condition: Stable Prescriptions: No Action allopurinol 100 mg tablet 100 mg PO DAILY bumetanide 2 mg tablet 2 mg PO DAILY hydrocodone-acetaminophen 10-325 mg tablet 1 tab PO Q6H PRN (Reason: Pain) celecoxib [Celebrex] 200 mg capsule 200 mg PO BID oxybutynin chloride 5 mg tablet 5 mg PO DAILY atorvastatin 20 mg tablet 20 mg PO DAILY gabapentin 800 mg tablet 1,200 mg PO TID Humira Pen 40 mg/0.8 mL pen injector kit See Rx Instructions SUBCUT .COMPLEX Qty: 4 5RF Rx Instructions: inject one - 40 mg/0.8 mL pen every 2 weeks SUBCUT (DME) Diabetic Shoes See Rx Instructions .ROUTE .MEDSUPPLY Qty: 1 0RF Rx Instructions: As directed (DME) CAM WALKER See Rx Instructions .ROUTE .MEDSUPPLY Qty: 1 0RF Rx Instructions: As directed terazosin 5 mg capsule 5 mg PO BID cholecalciferol (vitamin D3) 50 mcg (2,000 unit) capsule 50 mcg PO DAILY duloxetine 60 mg capsule,delayed release(DR/EC) 60 mg PO DAILY amiodarone 200 mg tablet 200 mg PO DAILY Qty: 90 3RF Xarelto 20 mg tablet 20 mg PO DAILY Qty: 90 3RF Rx Instructions: must administer with evening meal Ozempic 2 mg/dose (8 mg/3 mL) Pen Injector SUBCUT Referrals: Mckenna Rodriguez [Primary Care Provider] - Coding Level of Care Code ED Spinner Hydraulic for Adithya Das
[2022-10-30] MEDS: sodium chloride 0.9% 1,000 ML 999 ML IV ×3 (02:08→10:03)
--- NOTE | 2022-10-30 02:09 | CTR_ITS ---
PROCEDURE INFORMATION: Exam: CT Chest Without Contrast; Diagnostic Exam date and time: 10/30/2022 2:31 AM Age: 62 years old Clinical indication: Injury or trauma and abnormal findings; Fall; Abnormal lab test; Abnormal kidney function lab tests and elevated wbc; Blunt trauma (contusions or hematomas); Prior surgery; Surgery date: 1-6 months; Surgery type: RT gracie; Patient HX: Patient fell at home this a. M. Landing on both knees and striking back of head on furniture. Hypotensive on monitor 62 systolic. Lactic of 4.7. Wbc of 20k. Creat of 2.8 TECHNIQUE: Imaging protocol: Diagnostic computed tomography of the chest without contrast. Radiation optimization: All CT scans at this facility use at least one of these dose optimization techniques: automated exposure control; mA and/or kV adjustment per patient size (includes targeted exams where dose is matched to clinical indication); or iterative reconstruction. REPORTING DATA: Count of CT and Cardiac NM exams in prior 12 months: This patient has received [address] and 0 known cardiac nuclear medicine studies in the 12 months prior to the current study. COMPARISON: CR (CHEST, ) 10/30/2022 2:07 AM RADIATION DOSE METRICS: Total DLP (mGy-cm): 1545.12 FINDINGS: Lungs: Unremarkable. No consolidation. No masses. Pleural spaces: Unremarkable. No pneumothorax. No pleural effusion. Heart: There is mild cardiomegaly. Coronary arteries: Mild coronary artery calcifications. Lymph nodes: Unremarkable. No enlarged lymph nodes. Vasculature: Unremarkable. No aortic aneurysm. Bones/joints: Unremarkable. No acute fracture. Soft tissues: Unremarkable. PROCEDURE INFORMATION: Exam: CT Abdomen And Pelvis Without Contrast Exam date and time: 10/30/2022 2:31 AM Age: 62 years old Clinical indication: Injury or trauma and abnormal findings; Fall; Abnormal lab test; Abnormal kidney function lab tests and elevated wbc; Blunt trauma (contusions or hematomas); Prior surgery; Surgery date: 1-6 months; Surgery type: RT gracie; Patient HX: Patient fell at home this a. M. Landing on both knees and striking back of head on furniture. Hypotensive on monitor 62 systolic. Lactic of 4.7. Wbc of 20k. Creat of 2.8 TECHNIQUE: Imaging protocol: Computed tomography of the abdomen and pelvis without contrast. Radiation optimization: All CT scans at this facility use at least one of these dose optimization techniques: automated exposure control; mA and/or kV adjustment per patient size (includes targeted exams where dose is matched to clinical indication); or iterative reconstruction. REPORTING DATA: Count of CT and Cardiac NM exams in prior 12 months: This patient has received [address] and 0 known cardiac nuclear medicine studies in the 12 months prior to the current study. COMPARISON: CR XR hip RT 1V wo/w pel [id number] 08/26/2022 11:38 AM RADIATION DOSE METRICS: Total DLP (mGy-cm): 1545.12 FINDINGS: Lungs: The lung bases are clear. No effusion Liver: Normal. No mass. Gallbladder and bile ducts: No wall thickening, pericholecystic fluid or stones. Pancreas: Normal. No ductal dilation. Spleen: Normal. No splenomegaly. Adrenal glands: Normal. No mass. Kidneys and ureters: 5 mm nonobstructing left renal pelvis stone. Stomach and bowel: Mild amount of formed stool in the colon. Appendix: No evidence of appendicitis. Intraperitoneal space: Unremarkable. No free air. No significant fluid collection. Vasculature: There is mild atherosclerotic disease. Lymph nodes: Unremarkable. No enlarged lymph nodes. Urinary bladder: Unremarkable as visualized. Reproductive: Unremarkable as visualized. Bones/joints: There is a right hip arthroplasty which obscures portions of the pelvis due to streak artifact. Severe left hip osteoarthritis. Soft tissues: Multiple fat containing ventral hernias, largest is 4.[address]/[place] [id number] IMPRESSION: 1. No evidence of acute injury. 2. Mild cardiomegaly. IMPRESSION: 1. No evidence of acute injury. 2. 5 mm nonobstructing left renal pelvis stone. 3. Mild constipation. 4. Multiple fat containing ventral hernias, largest is 4.5 cm. 5. Severe left hip osteoarthritis.
[2022-10-30 02:17] LABS: Alanine Aminotransferase 18 U/L (0-41); Albumin Level 3.8 g/dL (3.5-5.2); Alkaline Phosphatase 71 U/L (40-130); Anion Gap 21.6 (5-19); Aspartate Amino Transferase 21 U/L (0-40); Blood Urea Nitrogen 29 mg/dL (8-23); Calcium 9.1 mg/dL (8.5-10.5); Carbon Dioxide 21 mmol/L (22-29); Chloride 93 mmol/L (98-107); Globulin 3.1 g/dL (1.3-4.6); Glomerular Filtration Rate 23.2 mL/min (90-130); Glucose 145 mg/dL (65-115); Osmolality Calculated 282 mOsm/kg (285-295); Potassium 3.6 mmol/L (3.5-5.1); Sodium 132 mmol/L (136-145); Total Bilirubin 0.6 mg/dL (0.15-1.2); Total Protein 6.9 g/dL (6.6-8.7)
[2022-10-30 02:33] LABS: Slide Review Slide Review Perform
[2022-10-30 02:34] LABS: Absolute Neutrophil 18.9 10^3/cmm (1.4-6.5); Absolute Segmented Neutrophil 15.1 10/cmm (1.6-7.1); Band Neutrophils Absolute 3.8 10^3/cmm (0.0-1.2); Eosinophils 0 %; Lymphocytes 4 %; Lymphocytes Absolute 0.8 10^3/cmm (1.2-3.4); Monocytes Absolute 0.4 10^3/cmm (0.1-0.6); Platelet Estimate Normal (Normal); Segmented Neutrophils 75 %; Total Cells Counted 100 (0-100)
[2022-10-30 02:46] LABS: NT Pro B Type Natriuretic Pept 1001 pg/mL (0-125)
[2022-10-30 02:47] LABS: Troponin(5th) Baseline 48 ng/L (0-15)
[2022-10-30 02:48] LABS: Lactic Sepsis W/Reflex 4.7 mmol/L (0.5-2.2)
--- NOTE | 2022-10-30 03:06 | XRR_ITS ---
PROCEDURE INFORMATION: Exam: XR Chest Exam date and time: 10/30/2022 3:12 AM Age: 62 years old Clinical indication: Other vascular access device placement or adjustment; Central line, tunnelled; Patient HX: Check S/P central line placement TECHNIQUE: Imaging protocol: Radiologic exam of the chest. Views: 1 view. COMPARISON: [place] [id number] 10/30/2022 2:31 AM FINDINGS: Tubes, catheters and devices: Right central venous catheter with tip overlying the overlies the proximal superior vena cava. Lungs: Unremarkable. No consolidation. Pleural spaces: No pneumothorax. Heart/Mediastinum: Unremarkable. No cardiomegaly. Bones/joints: Unremarkable. Other findings: Patient is rotated to the right and there is a poor inspiration. XR/XR chest 1V portable [id number] IMPRESSION: 1. Patient is rotated to the right and there is a poor inspiration. 2. Right central venous catheter with tip overlying the overlies the proximal superior vena cava. No pneumothorax.
[2022-10-30] MEDS: aztreonam 2,000 MG in sodium chloride 0.9% (plus) 100 ML 200 MG IV (03:23)
--- NOTE | 2022-10-30 03:37 | USR_ITS ---
PROCEDURE INFORMATION: Exam: US Duplex Right Lower Extremity Veins, Limited Exam date and time: 10/30/2022 4:10 AM Age: 62 years old Clinical indication: Edema, localized; Lower extremity, right; Patient HX: Rle edema with gaiter zone pigmentation, chronic for years. ; Additional info: Swelling TECHNIQUE: Imaging protocol: Real-time duplex ultrasound of the right extremity with 2-D quesada scale, color Doppler flow and spectral waveform analysis including responses to compression and other maneuvers (when performed) with image documentation. Limited exam was focused on the right lower extremity veins. COMPARISON: [place] [id number] 10/30/2022 2:31 AM FINDINGS: Right deep veins: Unremarkable. The common femoral, femoral, proximal profunda femoral and popliteal veins are patent without thrombus. Normal Doppler waveforms. Normal compressibility and/or augmentation response. Right superficial veins: Unremarkable. Saphenofemoral junction is patent without thrombus. Soft tissues: Unremarkable. Lymph nodes: Multiple nonspecific enlarged right inguinal lymph [place]. US/[place] [id number] IMPRESSION: 1. Multiple nonspecific enlarged right inguinal lymph nodes. 2. No DVT.
[2022-10-30] MEDS: vancomycin 1,000 MG in sodium chloride 0.9% 250 ML 250 MG IV (04:01)
[2022-10-30 04:04] LABS: Reflex Lactate Order REFLEX LACTIC ORDERD
--- NOTE | 2022-10-30 04:05 | ECG_ITS ---
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 Measurements Intervals [place] Rate: 87 P: 97 [place]: 213 QRS: -49 QRSD: 153 T: 73 QT: 380 QTc: 457 Interpretive Statements SINUS RHYTHM WITH FIRST DEGREE AV BLOCK INTRAVENTRICULAR CONDUCTION DELAY [130+ ms QRS DURATION] POSSIBLE LATERAL MYOCARDIAL INFARCTION , OF INDETERMINATE AGE [30 ms Q WAVE IN I/aVL/V5/V6] Compared to ECG 10/30/2022 02:02:48 First degree AV block now present Myocardial infarct finding still present Electronically Signed On 10-30-2022 17:59:48 CDT by Rinku Mireles M.D. [email or web address]
[2022-10-30 04:27] LABS: Add Urine Microscopic? YES; Bilirubin Urine Neg (Negative); Blood Urine Neg (Negative); Glucose Urine UA Norm (Normal); Ketones Urine Negative (Negative); Leukocyte Esterase Urine 1+ (Negative); Nitrate Urine Negative (Negative); Protein Urine Neg (Negative); RBC Urine 0-4 /hpf (0-2); Specific Gravity, Urine 1.015 (1.005-1.030); Squamous Epithelial Cell Urine 0-4 /hpf (0-5); Urine Appearance SL Hazy (CLEAR); Urine Color Yellow (Yellow); Urobilinogen Urine Neg (Negative); pH Urine 5 (5-7)
[2022-10-30 04:28] LABS: Add Urine Culture? Yes; Bacteria Urine 3+ /hpf; Mucus Urine 2+ /hpf
[2022-10-30 05:17] LABS: Troponin 5 2HR 28.53 ng/L (0-15)
[2022-10-30 05:18] LABS: Lactic Acid level (Lactate) 3.4 mmol/L (0.5-2.2)
--- NOTE | 2022-10-30 06:24 | P.HP_ITS ---
Providers/Chief Complaint Admitting Physician: Aarti Brito MD Primary Care Provider: Mckenna Rodriguez Chief Complaint: FALL History of Present Illness Hira White is a 62 year old male with PMH A fib. CAD ,psoriatic arthritis on Humira, DVT, CHF presneting to ER today with c/o fall at home. Patient states that he has been feeling weak and lethargic since yesterday. Today when he went to use the bathroom, he feel and struck his head which resulted in a scalp laceration. On arrival at ER he was hypotensive with SBP 60s. Central line was placed, received sepsis bolus and started on levophed. He c/o subjective fever and chills. Denies any chest pain, cough, URI symptoms, dyspnea, palpitations, NVD. Recent history notable for Right JAIDA on 08/26/22. He appears to have chronic LE edema with stasis dermatitis. His RLE has changes of cellulitis, on asking specifically states that right leg has felt as if burning over the past 2 day. He is unable to tell me if right leg apepars abnormal compared to previosuly as he cant look at his own legs . Family currently N/a. Reports PMH cellulitis episodes, however none severe enough to warrant admission Review of Systems General: Reports: 10 or more systems reviewed and unremarkable except in HPI and below Const: Reports: fever(s) and chills; Denies: body aches Eyes: Denies: change in vision, blurry vision or photophobia ENMT: Reports: hoarseness; Denies: throat pain, enlarged tonsils, odynophagia or nasal congestion Card: Denies: chest pain, palpitations, irregular heart rhythm, edema, swelling of feet/ankles, lightheadedness, pre-syncope, dyspnea on exertion or orthopnea Resp: Denies: dyspnea, productive cough, non-productive cough, wheezing, stridor, pain on inspiration, change in phlegm color, hemoptysis or chest congestion GI: Denies: abdominal pain, nausea, vomiting, hematemesis, coffee ground emesis, dysphagia, heartburn, diarrhea, constipation, GI cramping, change in stool character, hematochezia or melena : Denies: flank pain, dysuria, urinary frequency, urinary urgency, urinary hesitancy or hematuria Musc: Denies: neck pain, back pain, extremity pain, joint swelling, joint warmth or deformity Neuro: Denies: headache(s), numbness in extremities, weakness in extremities, sensory changes, difficulty walking, frequent falls, dizziness, vertigo, behavioral changes, Slurred speech present or seizure-like activity Psych: Denies: anxiety, depression, suicidal ideation or homicidal ideation Endo: Denies: polyuria, polydipsia, tired all the time, cold intolerance or hot flashes Phill/Lymph: Denies: easy bruising or easy bleeding Medications/Allergies Home Medications Medication Instructions Recorded Confirmed Last Taken Type atorvastatin 20 mg tablet 20 mg PO DAILY 12/02/19 10/30/22 08/25/22 History celecoxib 200 mg capsule (Celebrex) 200 mg PO BID 12/02/19 10/30/22 08/25/22 His tory hydrocodone 10 mg-acetaminophen 1 tab PO Q6H PRN Pain 12/02/19 10/30/22 08/26/22 History 325 mg tablet oxybutynin chloride 5 mg tablet 5 mg PO DAILY 12/02/19 10/30/22 08/25/22 History CAM WALKER #1 ea 12/23/19 10/30/22 Unknown Rx Diabetic Shoes #1 ea 12/23/19 10/30/22 Unknown Rx adalimumab 40 mg/0.8 mL See Rx Instructions SUBCUT 03/07/20 10/30/22 08/14/22 Rx subcutaneous pen kit (Humira Pen) .COMPLEX #4 ea allopurinol 100 mg tablet 100 mg PO DAILY 09/07/20 10/30/22 08/26/22 History cholecalciferol (vitamin D3) 50 50 mcg PO DAILY 03/27/21 10/30/22 08/25/22 History mcg (2,000 unit) capsule duloxetine 60 mg capsule,delayed 60 mg PO DAILY 03/27/21 10/30/22 08/25/22 History release terazosin 5 mg capsule 5 mg PO BID 03/27/21 10/30/22 08/25/22 History bumetanide 2 mg tablet 2 mg PO DAILY 09/11/21 10/30/22 08/25/22 History gabapentin 800 mg tablet 1,200 mg PO TID 09/11/21 10/30/22 08/25/22 History amiodarone 200 mg tablet 200 mg PO DAILY #90 tabs 02/11/22 10/30/22 08/26/22 Rx rivaroxaban 20 mg tablet (Xarelto) 20 mg PO DAILY #90 tabs 07/31/22 10/30/22 08/22/22 Rx semaglutide 2 mg/dose (8 mg/3 mL) See Rx Instructions .Route .COMPLEX 08/16/22 10/30/22 08/15/22 History subcutaneous pen injector (Ozempic) testosterone cypionate 200 mg/mL See Rx Instructions .Route .COMPLEX 10/30/22 10/30/22 Unknown History intramuscular oil torsemide 10 mg tablet 10 mg PO DAILY 10/30/22 10/30/22 Unknown History Allergies Allergy/AdvReac Type Severity Reaction Status Date / Time Penicillins Allergy ALGY-Rash Verified 10/30/22 01:59 PFSH Acute PFSH: Medical History Afib Cardiomyopathy Chronic atrial fibrillation Chronic back pain Diabetes High risk medication use High risk medication use joint pain Hypertension Leg edema Osteoarthritis involving multiple joints on both sides of body Plaque psoriasis Hip OA -followup with Orthopedics for injections Psoriatic arthritis Vitamin D deficiency Surgical History No pertinent past surgical history Family History Father Cancer Hypertension Stroke Brother Cancer Hypertension Sister Diabetes Mother Dementia Other Rheumatoid arthritis Denies family history of Lupus CAD (coronary artery disease) Clotting disorder Chronic kidney disease (CKD) Suicide Anesthesia complication Bleeding disorder Lung disease Social History Smoking and tobacco status: never smoked Alcohol intake: never Substance/Drug Use: never Vitals/I&O/Wt Last Vital Signs Temp 98.2 F 10/30/22 01:49 Pulse 86 10/30/22 05:46 Resp 20 H 10/30/22 05:47 BP 103/62 10/30/22 05:47 Pulse Ox 97 10/30/22 05:47 O2 Del Method Nasal Cannula 10/30/22 05:46 O2 Flow Rate 2 10/30/22 05:46 10/29/22 10/29/22 10/30/22 14:59 22:59 06:59 Intake Total 56.896 / 56.896 Balance 56.896 / 56.896 Weight last 48 hrs Weight 125.464 kg Weight 123.377 kg Physical Exam Narrative: General: No acute distress, AO x3, dehydrated, chapped lips HEENT: PERRLA, pupils bilaterally equal and reactive, pallors not present Chest: Normal vesicular breath sounds, no added sounds, equal good air entry bilaterally CVS: S1-S2 regular, no murmurs, no tachycardia, no gallops, no rubs Abdomen: Soft, nontender, no organomegaly, bowel sounds present, easily reducible anterior hernia, just right of midline Neuro: No focal deficits, no facial deformity, AO x3, power 5/5 in all limbs Extremities: B/L LE edema, appears to be lymphedema vs venous stasis. B/L LE stasis dermatitis with purple leg dicoloartion, with changes of cellulitis in RLE Data 10/30/22 01:55 10/30/22 01:55 Micro: Microbiology 10/30/22 03:14 Blood Culture - Preliminary Blood SPECIMEN COLLECTED 10/30/22 03:21 Blood Culture - Preliminary Blood SPECIMEN COLLECTED Other data: Radiology Impressions Cervical Spine CT 10/30/22 01:56 IMPRESSION: 1. No fracture. 2. There is 4 mm retrolisthesis of C3 on C4, likely degenerative with severe disc space narrowing, secondary to degenerative disease. Head CT 10/30/22 01:56 IMPRESSION: 1. No acute infarct or hemorrhage. 2. No calvarial or skull base fracture. Knee X-Ray 10/30/22 01:56 IMPRESSION: No acute findings. Chest/Abdomen/Pelvis CT 10/30/22 02:09 IMPRESSION: 1. No evidence of acute injury. 2. Mild cardiomegaly. IMPRESSION: 1. No evidence of acute injury. 2. 5 mm nonobstructing left renal pelvis stone. 3. Mild constipation. 4. Multiple fat containing ventral hernias, largest is 4.5 cm. 5. Severe left hip osteoarthritis. Chest X-Ray 10/30/22 03:06 IMPRESSION: 1. Patient is rotated to the right and there is a poor inspiration. 2. Right central venous catheter with tip overlying the overlies the proximal superior vena cava. No pneumothorax. Venous Duplex 10/30/22 03:37 IMPRESSION: 1. Multiple nonspecific enlarged right inguinal lymph nodes. 2. No DVT. Laboratory Results WBC 20.1 10^3/uL (4.0-10.0) H 10/30/22 01:55 RBC 4.04 10^6/uL (4.1-5.3) L 10/30/22 01:55 Hgb 12.3 g/dL (11.7-16.6) 10/30/22 01:55 Hct 38.1 % (42.0-52.0) L 10/30/22 01:55 MCV 94.3 fl (80-94) H 10/30/22 01:55 MCH 30.4 pg (28.0-34.0) 10/30/22 01:55 MCHC 32.3 g/dL (30.0-36.0) 10/30/22 01:55 RDW 13.4 % (12.1-15.1) 10/30/22 01:55 Plt Count 151 10^3/cmm (130-400) 10/30/22 01:55 MPV 9.4 fL (7.4-10.4) 10/30/22 01:55 Lymph % (Auto) Not Reportable 10/30/22 01:55 Milam % (Auto) Not Reportable 10/30/22 01:55 Lymph # (Auto) Not Reportable 10/30/22 01:55 [place] # (Auto) Not Reportable 10/30/22 01:55 Total Counted 100 (0-100) 10/30/22 01:55 Atypical Lymphs % 0.0 % (0-5) 10/30/22 01:55 Absolute Neutrophils 18.9 10^3/cmm (1.4-6.5) H 10/30/22 01:55 Segmented Neutrophils 75 % 10/30/22 01:55 Abs Segm Neuts (Man) 15.1 10/cmm (1.6-7.1) H 10/30/22 01:55 Band Neutrophils 19.0 % 10/30/22 01:55 Abs Band Neuts (Man) 3.8 10^3/cmm (0.0-1.2) H 10/30/22 01:55 Absolute Lymphocytes 0.8 10^3/cmm (1.2-3.4) L 10/30/22 01:55 Lymphocytes (Manual) 4 % 10/30/22 01:55 Monocytes (Manual) 2.0 % 10/30/22 01:55 Absolute Monocytes 0.4 10^3/cmm (0.1-0.6) 10/30/22 01:55 Eosinophils (Manual) 0 % 10/30/22 01:55 Absolute Eosinophils 0.0 10^3/cmm (0.0-0.7) 10/30/22 01:55 Basophils (Manual) 0.0 % 10/30/22 01:55 Absolute Basophils 0.0 10^3/cmm (0.0-0.2) 10/30/22 01:55 Platelet Estimate Normal (Normal) 10/30/22 01:55 Sodium 132 mmol/L (136-145) L 10/30/22 01:55 Potassium 3.6 mmol/L (3.5-5.1) 10/30/22 01:55 Chloride 93 mmol/L (98-107) L 10/30/22 01:55 Carbon Dioxide 21 mmol/L (22-29) L 10/30/22 01:55 Anion Gap 21.6 (5-19) H 10/30/22 01:55 BUN 29 mg/dL (8-23) H 10/30/22 01:55 Creatinine 2.8 mg/dL (0.7-1.2) H 10/30/22 01:55 GFR Calculation 23.2 mL/min (90-130) L 10/30/22 01:55 Glucose 145 mg/dL (65-115) H 10/30/22 01:55 Calculated Osmolality 282 mOsm/kg (285-295) L 10/30/22 01:55 Lactic Acid 4.7 mmol/L (0.5-2.2) H* 10/30/22 02:15 Lactic Acid (Sepsis) 3.4 mmol/L (0.5-2.2) H 10/30/22 04:48 Calcium 9.1 mg/dL (8.5-10.5) 10/30/22 01:55 Total Bilirubin 0.6 mg/dL (0.15-1.2) 10/30/22 01:55 AST 21 U/L (0-40) 10/30/22 01:55 ALT 18 U/L (0-41) 10/30/22 01:55 Alkaline Phosphatase 71 U/L (40-130) 10/30/22 01:55 Troponin T Baseline 48 ng/L (0-15) H 10/30/22 01:55 Troponin T 120 Minute 28.53 ng/L (0-15) H 10/30/22 04:48 Delta Troponin T -19.47 ABS# (0-10) L 10/30/22 04:48 Troponin T Hi Sens 6Hr 32.22 ng/L (0-15) H 10/30/22 08:36 Troponin T Hi Sens 6Hr Delta -15.78 ng/L (0-12) L 10/30/22 08:36 NT-Pro-B Natriuret Pep 1001 pg/mL (0-125) H 10/30/22 01:55 Total Protein 6.9 g/dL (6.6-8.7) 10/30/22 01:55 Albumin 3.8 g/dL (3.5-5.2) 10/30/22 01:55 Globulin 3.1 g/dL (1.3-4.6) 10/30/22 01:55 Vitamin B12 408 pg/mL (232-1245) 10/30/22 08:36 TSH 2.21 uIU/mL (0.27-4.20) 10/30/22 08:36 Urine Color Yellow (Yellow) 10/30/22 04:09 Urine Appearance Sl hazy (CLEAR) A 10/30/22 04:09 Urine pH 5 (5-7) 10/30/22 04:09 Ur Specific [place] 1.015 (1.005-1.030) 10/30/22 04:09 Urine Protein Neg (Negative) 10/30/22 04:09 Urine Glucose (UA) Norm (Normal) 10/30/22 04:09 Urine Ketones Negative (Negative) 10/30/22 04:09 Urine Blood Neg (Negative) 10/30/22 04:09 Urine Nitrate Negative (Negative) 10/30/22 04:09 Urine Bilirubin Neg (Negative) 10/30/22 04:09 Urine Urobilinogen Neg mg/dL (Negative) 10/30/22 04:09 Ur Leukocyte Esterase 1+ (Negative) H 10/30/22 04:09 Urine RBC 0-4 /hpf (0-2) H 10/30/22 04:09 Urine WBC 5-10 /hpf (0-5) H 10/30/22 04:09 Ur Squamous Epith Cells 0-4 /hpf (0-5) H 10/30/22 04:09 Amorphous Sediment Not Reportable 10/30/22 04:09 Urine Bacteria 3+ /hpf (NONE) H 10/30/22 04:09 Urine Mucus 2+ /hpf 10/30/22 04:09 A&P Assessment and plan (1) Septic shock: Admit to ICU in view of septic shock as evidenced by fever, tachycardia, elevated lactate, hypotension, leukocytsois, end organ dysfunction (MERLY) and source of infection by way of cellulitis blood cx taken prior to abx initiation received sepsis bolus in ER with persisting hypotension, now on levophed 10 Clinically dehydrated, started IVF NS @ 125 cc/ hr closely monitor for signs of hypervolemia given h/o CHF empirically recieved aztreonam thus far, change to cefepime and vancomycin , both renally dosed (2) Cellulitis of right leg: started on cefepime and vancomycin (3) MERLY (acute kidney injury): likely 2/2 ATN from sepsis, hypotension CT abdomen with non obstrcutuing renal calculus Place glass to circumvent potential bladder outlet obstruction and measure accurate urine output in sepsis (4) Fall: likely from hypotension CT head and CT c spine without bleed, fracture or dislocation (5) Laceration of head: from fall s/p [place] in ER right posterior scalp CT head without intracranial injury (6) Chronic atrial fibrillation: currently rate controlled hold xarelto given scalp laceration with excessive bleeding (7) Cardiomyopathy: unknown last EF check echo currently dehydrated , holding diuretics incl bumex and torsemide Qualifiers: Cardiomyopathy type: other Qualified Code(s): I42.8 - Other cardiomyopathies (8) Plaque psoriasis: Hold Humira Attestations Medical Necessity Statement*: > 2 midnight admission anticipated for septc shock, iv abx, fluids, pressors Critical Care Time: The high probability of a clinically significant, sudden or life threatening deterioration of the patient's [renal, infectious, cardiac] system(s) required my full and direct attention, intervention and personal management. The critical care time is as shown. This time is in addition to time spent performing any reported procedures but includes the following: [x] Data and vital sign review and interpretation [x] Patient assessment, examination and intervention [x] Documentation [x] Medication orders and management Critical Care Time (min): 70 Coding Level of Care Code Critical Care >/= 30 minutes Diagnoses Septic shock A41.9; R65.21 Cellulitis of right leg L03.115 MERLY (acute kidney injury) N17.9 Fall W19.XXXA Laceration of head S01.91XA Chronic atrial fibrillation I48.20 Cardiomyopathy I42.8 Cardiomyopathy type: other Plaque psoriasis L40.0
--- NOTE | 2022-10-30 06:34 | PC.PHAR ---
Vanc trough drawn before the 3rd dose Patient: Floor: Age: 62 yo Serum creatinine: 2.8 mg/dL Height: 68.9 Inches Weight (kg): 125 IBW (kg): 70.47 Dosing wt(kg): 92.3 Estimated Creatinine clearance (ml/min): 36.2 CRCL method: Cockcroft and Gault using adjusted body weight Drug selected: Vancomycin Loading dose (mg): Vd (liters): 64.6 (factor used: 0.7 L/kg) Natan (hr-1): 0.034 Half life (hrs): 20.39 CLvanco=?? 2.196 L/hr Recommended dose: 1500 mg Interval: 24 hrs Infusion time (hrs): 1 Predicted peak (mcg/mL): 40.9 Predicted trough (mcg/mL): 18.71 Adjusted body weight was selected for vancomycin dosing. To switch back, select the total body weight option above. Recommendations: Give Vancomycin 1500 mg q 24 hrs with an expected Cpeak of 40.9 mcg/ml and an expected Ctrough of 18.71 mcg/ml AUC 0-24 /PETER Data: PETER 0.5 mcg/mL:?? AUC/PETER:? 1366.1 PETER 1.0 mcg/mL:?? AUC/PETER:? 683.1 --------- PETER 1.5 mcg/mL:?? AUC/PETER:? 455.4 PETER 2.0 mcg/mL:?? AUC/PETER:? 341.5 Renal dosing of other antibiotics (review renal dosing of other medications and list guidelines here): Thank you for the consult, will continue to follow. Signature: Josué Martinez, RachelD
[2022-10-30] MEDS: sodium chloride 0.9% 1,000 ML 75 ML IV ×2 (06:42→13:44)
[2022-10-30] MEDS: HYDROcodone-acetaminophen 10-325 mg Tablet 1 TAB PO ×2 (07:27→16:17)
--- NOTE | 2022-10-30 08:05 | ECG_ITS ---
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 Measurements Intervals [place] Rate: 82 P: 85 VA: 216 QRS: -43 QRSD: 144 T: 39 QT: 388 QTc: 455 Interpretive Statements SINUS RHYTHM WITH FIRST DEGREE AV BLOCK LEFT AXIS DEVIATION [QRS AXIS < -30] INTRAVENTRICULAR CONDUCTION DELAY [130+ ms QRS DURATION] Compared to ECG 10/30/2022 04:45:47 Left-axis deviation now present Myocardial infarct finding no longer present Electronically Signed On 10-30-2022 17:59:30 CDT by Rinku Mireles M.D. [id number]
[2022-10-30] MEDS: morphine 4 mg/mL SDV 1 mL 2 MG IVP (08:16)
[2022-10-30] MEDS: pantoprazole DR 40 mg Tablet PO (08:19)
[2022-10-30] MEDS: amiodarone 200 mg Tablet PO (08:19)
[2022-10-30] MEDS: gabapentin 400 mg Capsule 1200 MG PO (08:19)
[2022-10-30] MEDS: duloxetine 60 mg Capsule PO (08:19)
--- NOTE | 2022-10-30 08:39 | USCV_ITS ---
Hira White Age: 62 Gender: M : 1960 Exam Date: 10/30/2022 17:01 Ordering Phys: Abdirahman Schuler MD Technologist: CT Exam Location: [facility] [place] Indication: BP: 90 / 60 HR: 94 Rhythm: Sinus Technical Quality: Adequate MEASUREMENTS (Male / Female) Normal Values 2D ECHO LV Diastolic Diameter PLAX 6.0 cm 4.2 - 5.9 / 3.9 - 5.3 cm LV Systolic Diameter PLAX 4.0 cm IVS Diastolic Thickness 1.1 cm 0.6 - 1.0 / 0.6 - 0.9 cm IVS Systolic Thickness 2.4 cm LVPW Diastolic Thickness 1.5 cm 0.6 - 1.0 / 0.6 - 0.9 cm LVPW Systolic Thickness 1.3 cm LVOT Diameter 2.1 cm LV Ejection Fraction 2D Teich 60.5 % LV Ejection Fraction MOD 2C 51.7 % LV Ejection Fraction 2C AL 53.9 % LA Diameter 4.2 cm Aorta at Sinotubular Diameter 3.3 cm M-MODE Aortic Annulus Diameter 4.1 cm LA Ao Ratio MM 1.0 MV E Point Septal Separation 1.3 cm DOPPLER AV Peak Velocity 122.7 cm/s LVOT Peak Velocity 223.0 cm/s AV Area Cont Eq vti 6.7 cm squared AV Area Cont Eq pk 6.5 cm squared MV Peak Velocity 126.0 cm/s MV Area PHT 5.0 cm squared Mitral E to A Ratio 1.3 MV E' Velocity 65.5 cm/s Mitral E to MV E' Ratio 8.6 Mitral E to LV E' Lateral Ratio 6.8 Mitral E to LV E' Septal Ratio 11.7 TR Peak Velocity 133.7 cm/s TR Peak Gradient 7.2 mmHg TR Mean Velocity 113.7 cm/s TR Mean Gradient 5.2 mmHg TR Velocity Time Integral 19.4 cm TV Peak E Velocity 77.0 cm/s Right Atrial Pressure 3.0 mmHg Pulmonary Artery Systolic Pressu 10.2 mmHg PV Peak Velocity 108.0 cm/s FINDINGS Left Ventricle Normal left ventricular size and systolic function, EF 55 %. Mild left ventricular hypertrophy.no regional wall motion abnormalities. Right Ventricle The right ventricle is normal in size and function. Right Atrium The right atrium is normal in size. Left Atrium The left atrium is normal in size. Mitral Valve No gross abnormalities noted Aortic Valve Thickened aortic valve. Elevated LVOT velocity of 2.1 m/s. Aortic valve velocity of 1.84 m/s Tricuspid Valve Trace tricuspid valve regurgitation. Pulmonic Valve Pulmonic valve not well visualized. Pericardium Normal pericardium without effusion. Aorta Normal ascending aorta dimension. IVC Inferior vena cava not visualized. CONCLUSIONS Normal left ventricular size and systolic function, EF 55 %. Mild left ventricular hypertrophy.no regional wall motion abnormalities. Elevated LV outflow tract velocity suggesting mild LV outflow obstruction. Features of aortic valve sclerosis with a peak velocity of 1.84 m/s. Trace tricuspid valve regurgitation. There is no pericardial effusion. Technically difficult study because of the poor ultrasonic window. Dr Aram Palencia MD FACC (Electronically Signed) Final Date: 31 Oct 2022 13:24 S
[2022-10-30 09:18] LABS: Troponin 5 6HR 32.22 ng/L (0-15)
--- NOTE | 2022-10-30 09:45 | MRR_ITS ---
PROCEDURE INFORMATION: Exam: MR Cervical Spine Without Contrast Exam date and time: 10/30/2022 5:57 PM Age: 62 years old Clinical indication: Neck pain; Additional info: Post fall neck pain, TECHNIQUE: Imaging protocol: Magnetic resonance imaging of the cervical spine without contrast. COMPARISON: CT cervical spin wo con* [id number] 10/30/2022 2:27 AM FINDINGS: Bones/joints: The vertebral body stature is maintained. No fracture. Severe disc space narrowing at C3-C4 with 4 mm retrolisthesis of C3 on C4. The facets are intact with degenerative changes, greatest at C3-C4. Spinal cord: Normal signal. No cord compression. C2-C3: No significant disc bulge or herniation. No severe spinal canal stenosis. No significant neural foraminal narrowing. C3-C4: Retrolisthesis. No significant disc bulge. Severe right foraminal stenosis. Mild left foraminal stenosis. Mild-moderate central canal stenosis. C4-C5: No significant disc bulge or herniation. No severe spinal canal stenosis. No significant neural foraminal narrowing. C5-C6: Posterior disc bulge. Mild-moderate central canal stenosis. Moderate bilateral foraminal stenosis. C6-C7: Trace posterior disc bulge. No central canal stenosis. No foraminal stenosis. C7-T1: No significant disc bulge or herniation. No severe spinal canal stenosis. No significant neural foraminal narrowing. Soft tissues: Unremarkable. Vasculature: Expected flow voids in the vertebral arteries. MR/MR cervical spin wo con* [id number] IMPRESSION: 1. No fracture or acute finding. 2. Discogenic and facet degenerative changes at C3-C4 with retrograde subluxation of C3. 3. The most significant central canal stenosis is mild-moderate at C3-C4 and C5-C6. 4. The most significant foraminal stenosis is severe on the right at C3-C4 and moderate bilaterally at C5-C6.
--- NOTE | 2022-10-30 09:45 | PC.CHAP ---
Pastoral Care Encounter/Spiritual Assessment Type of Contact [] Declined marketing strategist visit [] Patient/Family/Request visit [] Outpatient visit [] Follow-up visit [] Physician referral [] Code/Alert [x] Routine visit [] Staff referral [] Actively dying [x [] Out of room [] Palliative care [] [] Receiving care in room [] Pre-surgical visit [] Trauma [] Long length of stay [] ICU visit [] Other: Relational/Emotional Strength [] Patient feels connected with others/family/visitors/staff [] Distress [] Loneliness/isolation [] Abandonment Spirituality of Patient [] Person of Charlene [] Attends [facility] of their Charlene [] Believes in Prayer [] Reads Bible or Oriental Orthodox materials [] There are Spiritual issues to be addressed Social Services Manager Interventions [x] Prayer [] Active listening [] Non-anxious presence [] Spiritual/emotional support [] Crisis/trauma care [] Spiritual counseling [] Bereavement support [] Provided bereavement packet [] Provided Bible/devotional materials [] Provided toy/stuffed animal, coloring book to patient or family member [] Provided Communion [] Anointing/Taylor [] Salvation [x] Completed spiritual assessment [] Other: Impact on Illness or Injury [] Angry [] Fearful [] Anxious [] Often cries [] Exhaustion [] Unable to work [] Unable to attend bahai [] Unable to walk/stand [] Unable to read [] Unable to drive [] Unable to eat/drink [] Unable to sleep [] Unable to be with family [] Patient intubated [] Other: Summary Time spent with patient
[2022-10-30] MEDS: HYDROmorphone 1 mg/mL INJ 1 mL 0.4 MG IVP ×2 (10:00→20:01)
[2022-10-30] MEDS: cefepime 1,000 MG in sodium chloride 0.9% (plus) 50 ML 100 MG IV ×2 (10:06→21:38)
[2022-10-30] MEDS: atorvastatin 40 mg Tablet 20 MG PO (10:19)
[2022-10-30] MEDS: terazosin 5 mg Capsule PO ×2 (10:20→17:22)
[2022-10-30 10:56] LABS: Thyroid Stimulating Hormone 2.21 uIU/mL (0.27-4.20); Vitamin B12 408 pg/mL (232-1245)
[2022-10-30 11:07] LABS: Iron 15 ug/dL (59-158); Percent Saturation 6.7 % (20-50); Total Iron Binding Capacity 221 mcg/dl; Unsaturated Iron Binding 206 ug/dL (112-347)
--- NOTE | 2022-10-30 11:15 | PM.CONSULT ---
Providers/Reason For Consult Consulting Physician/Specialty*: Ortho Spine Reason for Consult*: Neck pain Attending Physician: Abdirahman Schuler MD Primary Care Provider: Mckenna Rodriguez History of Present Illness History of Present Illness Hira Whtie is a 62 year old male presented to [facility] following a fall at home. He hit his head has complained of neck pain since the fall. States he passed out on his way to the restroom was not sure if he fell asleep but fell and hit his head. He denies any arm pain although he has had an arthritic shoulder on the right side which is his dominant extremity. Orthopedics was consulted as he was in the ICU room 8. Continues to have sharp stabbing pain in his neck with any movement making it much worse. Rest gives him some temporary relief. He denies any arm pain denies any leg pain although he has arthritic left hip that is scheduled for surgery. He wiggles all toes. Rest is given him some temporary relief. Any movement of his head causes sharp stabbing pain in his neck. Review of Systems General: Reports: 10 or more systems reviewed and unremarkable except in HPI and below Const: Reports: fever(s) and chills; Denies: body aches Eyes: Denies: change in vision, blurry vision or photophobia ENMT: Reports: hoarseness; Denies: throat pain, enlarged tonsils, odynophagia or nasal congestion Card: Denies: chest pain, palpitations, irregular heart rhythm, edema, swelling of feet/ankles, lightheadedness, pre-syncope, dyspnea on exertion or orthopnea Resp: Denies: dyspnea, productive cough, non-productive cough, wheezing, stridor, pain on inspiration, change in phlegm color, hemoptysis or chest congestion GI: Denies: abdominal pain, nausea, vomiting, hematemesis, coffee ground emesis, dysphagia, heartburn, diarrhea, constipation, GI cramping, change in stool character, hematochezia or melena : Denies: flank pain, dysuria, urinary frequency, urinary urgency, urinary hesitancy or hematuria Musc: Denies: neck pain, back pain, extremity pain, joint swelling, joint warmth or deformity Neuro: Denies: headache(s), numbness in extremities, weakness in extremities, sensory changes, difficulty walking, frequent falls, dizziness, vertigo, behavioral changes, Slurred speech present or seizure-like activity Psych: Denies: anxiety, depression, suicidal ideation or homicidal ideation Endo: Denies: polyuria, polydipsia, tired all the time, cold intolerance or hot flashes Phill/Lymph: Denies: easy bruising or easy bleeding Medications/Allergies Home Medications Medication Instructions Recorded Confirmed Last Taken Type atorvastatin 20 mg tablet 20 mg PO DAILY 12/02/19 10/30/22 08/25/22 History celecoxib 200 mg capsule (Celebrex) 200 mg PO BID 12/02/19 10/30/22 08/25/22 History hydrocodone 10 mg-acetaminophen 1 tab PO Q6H PRN Pain 12/02/19 10/30/22 08/26/22 History 325 mg tablet oxybutynin chloride 5 mg tablet 5 mg PO DAILY 12/02/19 10/30/22 08/25/22 History CAM WALKER #1 ea 12/23/19 10/30/22 Unknown Rx Diabetic Shoes #1 ea 12/23/19 10/30/22 Unknown Rx adalimumab 40 mg/0.8 mL See Rx Instructions SUBCUT 03/07/20 10/30/22 08/14/22 Rx subcutaneous pen kit (Humira Pen) .COMPLEX #4 ea allopurinol 100 mg tablet 100 mg PO DAILY 09/07/20 10/30/22 08/26/22 History cholecalciferol (vitamin D3) 50 50 mcg PO DAILY 03/27/21 10/30/22 08/25/22 History mcg (2,000 unit) capsule duloxetine 60 mg capsule,delayed 60 mg PO DAILY 03/27/21 10/30/22 08/25/22 History release terazosin 5 mg capsule 5 mg PO BID 03/27/21 10/30/22 08/25/22 History bumetanide 2 mg tablet 2 mg PO DAILY 09/11/21 10/30/22 08/25/22 History gabapentin 800 mg tablet 1,200 mg PO TID 09/11/21 10/30/22 08/25/22 History amiodarone 200 mg tablet 200 mg PO DAILY #90 tabs 02/11/22 10/30/22 08/26/22 Rx rivaroxaban 20 mg tablet (Xarelto) 20 mg PO DAILY #90 tabs 07/31/22 10/30/22 08/22/22 Rx semaglutide 2 mg/dose (8 mg/3 mL) See Rx Instructions .Route .COMPLEX 08/16/22 10/30/22 08/15/22 History subcutaneous pen injector (Ozempic) testosterone cypionate 200 mg/mL See Rx Instructions .Route .COMPLEX 10/30/22 10/30/22 Unknown History intramuscular oil torsemide 10 mg tablet 10 mg PO DAILY 10/30/22 10/30/22 Unknown History Allergies Allergy/AdvReac Type Severity Reaction Status Date / Time Penicillins Allergy ALGY-Rash Verified 10/30/22 01:59 Current Medications Generic Name Dose Route Start Last Admin Trade Name Freq PRN Reason Stop Dose Admin Hydrocodone Bitart/Acetaminophen 1 tab 10/30/22 06:23 10/30/22 07:27 Hydrocodone-Acetaminophen 10-325 Mg Tablet PO 1 tab Q6H PRN Administration MODERATE PAIN Amiodarone HCl 200 mg 10/30/22 09:00 10/30/22 08:19 Amiodarone 200 Mg Tablet PO 200 mg DAILY SALLIE Administration Atorvastatin Calcium 20 mg 10/30/22 09:00 10/30/22 10:19 Atorvastatin 40 Mg Tablet PO 20 mg DAILY SALLIE Administration Duloxetine HCl 60 mg 10/30/22 09:00 10/30/22 08:19 Duloxetine 60 Mg Capsule PO 60 mg DAILY SALLIE Administration Hydromorphone HCl 0.4 mg 10/30/22 09:45 10/30/22 10:00 Hydromorphone 1 Mg/Ml Inj 1 Ml IVP 0.4 mg Q4H PRN Administration BREAKTHROUGH PAIN Norepinephrine Bitartrate 4 mg 254 mls @ 0 mls/hr 10/30/22 02:45 10/30/22 07:39 / Dextrose IV 8 mcg/min .Q0M SALLIE 30.48 mls/hr Titration Protocol Per Protocol Sodium Chloride 1,000 mls @ 125 mls/hr 10/30/22 06:30 10/30/22 06:42 Sodium Chloride 0.9% IV 75 mls/hr .Q8H SALLIE Administration Cefepime HCl 1,000 mg/ Sodium 50 mls @ 100 mls/hr 10/30/22 10:00 10/30/22 11:04 Chloride IV Infused Q12H SALLIE Infusion Protocol Pantoprazole Sodium 40 mg 10/30/22 09:00 10/30/22 08:[address] 40 Mg Tablet PO 40 mg DAILY SALLIE Administration Terazosin HCl 5 mg 10/30/22 09:00 10/30/22 10:20 Terazosin 5 Mg Capsule PO 5 mg BID SALLIE Administration PFSH Acute PFSH: Medical History Afib Cardiomyopathy Chronic atrial fibrillation Chronic back pain Diabetes High risk medication use High risk medication use joint pain Hypertension Leg edema Osteoarthritis involving multiple joints on both sides of body Plaque psoriasis Hip OA -followup with Orthopedics for injections Psoriatic arthritis Vitamin D deficiency Surgical History No pertinent past surgical history Family History Father Cancer Hypertension Stroke Brother Cancer Hypertension Sister Diabetes Mother Dementia Other Rheumatoid arthritis Denies family history of Lupus CAD (coronary artery disease) Clotting disorder Chronic kidney disease (CKD) Suicide Anesthesia complication Bleeding disorder Lung disease Social History Smoking and tobacco status: never smoked Alcohol intake: never Substance/Drug Use: never Vitals/I&O/Wt Last Vital Signs Temp 99.1 F 10/30/22 07:03 Pulse 69 10/30/22 09:41 Resp 19 H 10/30/22 10:00 BP 113/63 10/30/22 06:30 Pulse Ox 99 10/30/22 10:00 O2 Del Method Room Air 10/30/22 09:41 O2 Flow Rate 2 10/30/22 05:46 10/29/22 10/30/22 10/30/22 22:59 06:59 14:59 Intake Total 56.896 / 56.896 145.25 / 145.25 Balance 56.896 / 56.896 145.25 / 145.25 Weight last 48 hrs Weight 276 lb 9.6 oz Weight 272 lb Physical Exam Narrative: Patient is alert orient x3 has good general appearance normal mood and affect. Patient demonstrates normal gait normal tandem gait. Negative Romberg or signs of ataxia. Normal coordination and normal stability. Nontender with palpation throughout the cervical and thoracic regions. Normal sensation to light touch in all dermatomal layers. No signs of muscle wasting. Decreased functional range of motion of the cervical. laterally bends 30 degrees symmetrically. Negative Spurling and De La Cruz tests. Normal motor strength in all muscle groups with 5/5 strength in shoulders, elbows, wrists and digits bilaterally. No gross laxity. Reflexes 2+ and symmetric but the biceps, triceps and brachioradialis bilaterally. Negative Phalen's and Tinel's sign bilaterally. Radial pulses 2+ bilaterally. No palpable lymphadenopathy. No evidence of peripheral edema. HENMT: COMMON NORMALS: normocephalic HEAD & SCALP: normocephalic Resp: COMMON NORMALS: normal respiratory effort Cardio: COMMON NORMALS: regular rate and regular rhythm RATE: regular rate RHYTHM: regular rhythm GI: COMMON NORMALS: Soft to palpation and non-tender PALPATION: Yes Soft to palpation : COMMON NORMALS: Yes no CVA tenderness BLADDER/KIDNEY EXAM: Yes no CVA tenderness Back/Pelvis: COMMON NORMALS: no CVA tenderness Psych: COMMON NORMALS: mental status grossly normal and cooperative Data 10/30/22 01:55 10/30/22 01:55 Micro: Microbiology 10/30/22 03:14 Blood Culture - Preliminary Blood SPECIMEN COLLECTED 10/30/22 03:21 Blood Culture - Preliminary Blood SPECIMEN COLLECTED Other CT: Radiologist's impression: CT/CT cervical spin wo con* [id number] IMPRESSION: 1. ? No fracture. 2. ? There is 4 mm retrolisthesis of C3 on C4, likely degenerative with severe disc space narrowing, secondary to degenerative disease. ? A&P Assessment and plan (1) Neck pain: Scan does not show any obvious fracture there is a spondylolisthesis at C3-4. We will recommend an MRI scan of his cervical spine he has a subclavian we will We will hold off on placing a [place] J collar on. We will await the MRI results of the cervical spine and discuss further recommendations. More than 50% of the time spent with the patient today involved coordination of care, counseling and discussion of conservative versus surgical treatment options. Total amount of time spent with the patient was 32 minutes. (2) Spondylolisthesis, cervical region: Coding Level of Care Code Acute Code for [facility] Diagnoses Neck pain M54.2 Spondylolisthesis, cervical region M43.12 Time Spent (min) 32
[2022-10-30] MEDS: gabapentin 300 mg Capsule 600 MG PO ×2 (16:17→21:37)
[2022-10-30 16:47] LABS: Lactate (Lactic Acid level) 1.9 mmol/L (0.5-2.2)
[2022-10-30 16:48] LABS: Anion Gap 15.1 (5-19); Blood Urea Nitrogen 31 mg/dL (8-23); Carbon Dioxide 22 mmol/L (22-29); Chloride 99 mmol/L (98-107); Glomerular Filtration Rate 47.6 mL/min (90-130); Glucose 128 mg/dL (65-115); Osmolality Calculated 282 mOsm/kg (285-295); Potassium 4.1 mmol/L (3.5-5.1); Sodium 132 mmol/L (136-145)
--- NOTE | 2022-10-30 17:56 | P.EN_ITS ---
Event Note Event Note: Admitted overnight. H&P and labs appreciated. Today morning seen in the ICU. Patient was initially on 10 units of Levophed which was later turned down to 2. Good urine output on examination. Patient complaining of pain in neck without tingling or numbness in the arms does complain of weakness or difficulty in swallowing. Complaining of severe pain. States home medications are not helping with pain for now. Otherwise awake and alert. Leg pain seems to be improving. Vitals, urine output appreciated. Seen multiple times during the day. Plan: Cheetah exam to see if patient is fluid responsive. Possible history of cardiomyopathy in the past. Last echocardiogram in the system from 2020 shows a normal EF. Patient overall received 2 L of IV fluid bolus in the ER. Patient was given 1 more bolus in the morning after was seen by me. IV fluids continue at 100 cc/h. Plan to keep intake and output equal. Watch for fluid overload. Repeat echocardiogram. Continue with vancomycin and cefepime. Follow-up cultures. Check MRSA swab. Wean Levophed keeping MAP over 65. Concerns for cervical injury. Patient did have CT cervical on admission. Seems to have retrolisthesis of 4 mm which seems to have increased from previous scan. We will also consult neurosurgery. Hold off on neck brace for now. Minimal movement for now. Hold off on physical therapy. Event Notes Attestations Time Spent in Patient Care: (>than 50% of time spent in counselling and/or direct pt care on unit) . More than 60 minutes spent in critical care requiring Levophed titration, cervical injury assessment, Cheetah exam, bedside echocardiogram. Other Coding Information Prolonged care (total time indicated above or notated here) This patient has a high probability of clinically significant, sudden or life threatening deterioration of the patient's (neurological/pulmonary/cardiac/renal/ID/endocrine) systems required my full, direct attention, the highest level of physician preparedness for urgent intervention and personal management. I managed/supervised life or organ supporting interventions that required frequent physician assessment. I devoted my full attention in the ICU to the direct care of this patient for the period of time indicated above. Time I spent with family or surrogate(s) is included only if the patient was incapable of providing necessary information or participating in decision making. This time includes the following services provided: Telemetry review Managing vasopressors Hemodynamic interpretation, assessment and management Review and interpretation of CXR Review and interpretation of lab values Review and interpretation of microbiologic data and culture results Review of medications and administration Review and interpretation of Nutrition requirements and management Discussion of management with other consultants and services Clinical update to family members
[2022-10-31] VITALS (46 sets, daily range): BP systolic 92–133; BP diastolic 51–76; PULSE 77–100; RESP 16–26; TEMP 37.2; O2SAT 91–98
[2022-10-31] MEDS: HYDROcodone-acetaminophen 10-325 mg Tablet 1 TAB PO (00:32)
[2022-10-31] MEDS: HYDROmorphone 1 mg/mL INJ 1 mL 0.4 MG IVP ×4 (01:34→20:27)
[2022-10-31] MEDS: vancomycin 1,500 MG/300 ML PIGGYBACK 200 MG IV (04:20)
[2022-10-31 06:07] LABS: Basophils # 0.1 10^3/uL (0.0-0.1); Basophils % 0.3 %; Eosinophils % 0.1 %; Hemoglobin 10.5 g/dL (11.7-16.6); Lymphocytes # 0.6 10^3/uL (0.8-4.8); Lymphocytes % 3.4 %; Mean Corpuscular HGB Conc 31.8 g/dL (30.0-36.0); Mean Corpuscular Hemoglobin 29.9 pg (28.0-34.0); Monocytes % 5.1 %; Neutrophils # 15.57 10^3/uL (1.8-7.7); Neutrophils % 82.7 %; Nucleated Red Blood Cells % 0 %; Platelet Count 142 10^3/cmm (130-400); Red Blood Count 3.51 10^6/uL (4.1-5.3); Red Cell Distribution Width 13.5 % (12.1-15.1); White Blood Count 18.8 10^3/uL (4.0-10.0)
[2022-10-31 06:32] LABS: Alanine Aminotransferase 17 U/L (0-41); Albumin Level 3.1 g/dL (3.5-5.2); Alkaline Phosphatase 56 U/L (40-130); Anion Gap 12.6 (5-19); Aspartate Amino Transferase 22 U/L (0-40); Blood Urea Nitrogen 23 mg/dL (8-23); Calcium 8.1 mg/dL (8.5-10.5); Carbon Dioxide 22 mmol/L (22-29); Chloride 101 mmol/L (98-107); Chol HDL Ratio 2.25 mg/dL (1.0-5.00); Cholesterol 45 mg/dL (0-200); Glucose 112 mg/dL (65-115); HDL Cholesterol 20 mg/dL (60-100); LDL Cholesterol Calculated 11 mg/dL (50-129); Osmolality Calculated 278 mOsm/kg (285-295); Potassium 3.6 mmol/L (3.5-5.1); Sodium 132 mmol/L (136-145); Total Bilirubin 0.4 mg/dL (0.15-1.2); Total Protein 6.1 g/dL (6.6-8.7); Triglycerides 69 mg/dL (0-150); VLDL Cholestrol Calculation 14 mg/dL (0-30)
--- NOTE | 2022-10-31 06:33 | PC.NURSE ---
Patient has rested throughout this nurse's shift. Pain has been controlled through [place]/Dilaudid. Pressures remains soft and treated with levophed, Currently at 2mcg/min. Patient has complained primarily of neck pain and left hip pain which is scheduled for replacement this summer.
[2022-10-31 06:54] LABS: Folate Level 2.7 ng/mL (4.5-32.2)
[2022-10-31 07:05] LABS: Estmated Average Glucose 94; Hemoglobin A1C 4.9 % (4.0-6.0)
--- NOTE | 2022-10-31 07:19 | P.PN_ITS ---
Subjective Subjective: Patient resting comfortably. Reports improvement of his neck pain. Reports some moderate arm pain worse on the right with his degenerative shoulder. Has good sensation in all upper extremities. Vitals/I&O/Wt Last Vital Signs Temp 98.9 F 10/31/22 05:00 Pulse 92 10/31/22 06:00 Resp 20 H 10/31/22 05:55 BP 114/60 10/31/22 05:00 Pulse Ox 96 10/31/22 05:55 O2 Del Method Nasal Cannula 10/31/22 05:00 O2 Flow Rate 1 10/31/22 05:00 10/30/22 10/31/22 10/31/22 22:59 06:59 14:59 Intake Total 732.583 / 1987.187 473.698 / 2460.885 Output Total 500 / 2000 1450 / 3450 Balance 232.583 / -12.813 -976.302 / -989.115 Weight last 48 hrs Weight 276 lb 9.6 oz Weight 272 lb Physical Exam 2 Narrative: He is alert and orient x3 has good general appearance normal mood and affect. He is moving both upper extremities with good strength fires in all motor groups. He has reduced range of motion to the right shoulder due to the degenerative process. Hands are warm good cap refill radial pulses are palpable. He has some improvement of the range of motion of the cervical spine with less pain. Wiggles both lower extremities he has evidence of cellulitis in his right lower extremity from the knee to the foot. 1+ edema in both lower extremities. Has a positive logroll on the left consistent with an arthritic left hip. HENMT: COMMON NORMALS: normocephalic HEAD & SCALP: normocephalic Resp: OTHER: Labored Cardio: COMMON NORMALS: regular rate and regular rhythm RATE: regular rate RHYTHM: regular rhythm GI: COMMON NORMALS: Soft to palpation and non-tender PALPATION: Yes Soft to palpation : COMMON NORMALS: Yes no CVA tenderness BLADDER/KIDNEY EXAM: Yes no CVA tenderness Back/Pelvis: COMMON NORMALS: no CVA tenderness Psych: COMMON NORMALS: mental status grossly normal and cooperative Urinary Catheter Management: Hernández: Cath Placed During This Visit: yes Reason for Continuing Indwelling Catheter: Accurate Measurement of Urinary Output in Critically Ill Patients Urinary Catheter Date of Insertion: 10/30/22 Urinary Catheter Time of Insertion: 09:00 Data 10/31/22 05:25 10/31/22 05:25 Micro: Microbiology 10/30/22 03:21 Blood Culture - Preliminary Blood 10/30/22 03:14 Blood Culture - Preliminary Blood 10/30/22 10:20 Bacterial Antigens - Final Urine Kidney MRI: Radiologist's impression: MR/MR cervical spin wo con* [id number] IMPRESSION: 1. No fracture or acute finding. 2. Discogenic and facet degenerative changes at C3-C4 with retrograde subluxation of C3.? 3. The most significant central canal stenosis is mild-moderate at C3-C4 and C5-C6. 4. The most significant foraminal stenosis is severe on the right at C3-C4 and moderate bilaterally at C5-C6. A&P Assessment and plan (1) Retrolisthesis of vertebrae: Discussed with the patient there was no obvious acute fracture discussed degenerative changes at C3-4 and the retrolisthesis. He does have facet arthritis as well and discussed conservative outpatient treatment which would involve going to the pain clinic for facet blocks. He has a arthritic right shoulder that he is following up in [place] with orthopedist there. He is scheduled for a left hip procedure with Dr. Dutton due to arthritic change. We will see him back in the office outpatient in 1 to 2 weeks for evaluation of his neck pain. He currently has central line on the right side of his neck and therefore we will hold off on a soft cervical collar or [place] J collar. Once that line is removed if he wishes to have a brace we can order that for more support. Physical therapy had to mobilize as tolerated medically due to his right lower extremity cellulitis. Would encourage incentive spirometry for pulmonary toilet. We will see him back in the office in 1-2 weeks and will be available if his condition changes inpatient. More than 50% of the time spent with the patient today involved coordination of care, counseling and discussion of conservative versus surgical treatment options. Total amount of time spent with the patient was 21 minutes. (2) Degenerative disc disease, cervical: Attestations Medical Necessity Statement*: Defer to medical team Coding Level of Care Code Acute Code for [facility] Fwd Diagnoses Retrolisthesis of vertebrae M43.10 Degenerative disc disease, cervical M50.30 Time Spent (min) 21
[2022-10-31 07:30] LABS: Glucose Point of Care 119 mg/dL (70-110)
[2022-10-31] MEDS: atorvastatin 40 mg Tablet 20 MG PO (07:52)
[2022-10-31] MEDS: gabapentin 300 mg Capsule 600 MG PO ×3 (07:52→20:27)
[2022-10-31] MEDS: duloxetine 60 mg Capsule PO (07:53)
[2022-10-31] MEDS: pantoprazole DR 40 mg Tablet PO (07:53)
[2022-10-31] MEDS: amiodarone 200 mg Tablet PO (07:53)
[2022-10-31] MEDS: terazosin 5 mg Capsule PO ×2 (07:54→17:48)
[2022-10-31] MEDS: fentaNYL 25 mcg Patch 1 PATCH TRANSDERMA (11:04)
[2022-10-31] MEDS: cefTRIAXone 1,000 MG in sodium chloride 0.9% (plus) 50 ML 100 MG IV (11:04)
[2022-10-31] MEDS: sodium chloride 0.9% 1,000 ML 75 ML IV (11:05)
--- NOTE | 2022-10-31 16:57 | P.PN_ITS ---
Subjective Subjective: Seen multiple times today. No acute events overnight. Patient has remained afebrile. Levophed turned off earlier today morning. Mean arterial pressures have maintained over 65. Patient himself states he is feeling better. Continues to have difficulty in swallowing. Urine output in last 24 hours around 3.4 L. Vitals/I&O/Wt Last Vital Signs Temp 98.9 F 10/31/22 05:00 Pulse 87 10/31/22 15:00 Resp 20 H 10/31/22 15:17 BP 118/58 10/31/22 15:00 Pulse Ox 95 10/31/22 14:30 O2 Del Method Nasal Cannula 10/31/22 05:00 O2 Flow Rate 1 10/31/22 05:00 10/31/22 10/31/22 10/31/22 06:59 14:59 22:59 Intake Total 1473.698 / 3460.885 245.461 / 245.461 Output Total 1450 / 3450 Balance 23.698 / 10.885 245.461 / 245.461 Weight last 48 hrs Weight 125.464 kg Weight 123.377 kg Physical Exam Narrative: General: No acute distress, AO x3, dehydrated, chapped lips HEENT: PERRLA, pupils bilaterally equal and reactive, pallors not present Chest: Normal vesicular breath sounds, no added sounds, equal good air entry bilaterally CVS: S1-S2 regular, no murmurs, no tachycardia, no gallops, no rubs Abdomen: Soft, nontender, no organomegaly, bowel sounds present, easily reducible anterior hernia, just right of midline Neuro: No focal deficits, no facial deformity, AO x3, power 5/5 in all limbs Extremities: B/L LE edema, appears to be lymphedema vs venous stasis. B/L LE stasis dermatitis with purple leg dicoloartion, with changes of cellulitis in RLE Urinary Catheter Management: Hernández: Cath Placed During This Visit: yes Reason for Continuing Indwelling Catheter: Accurate Measurement of Urinary Output in Critically Ill Patients Urinary Catheter Date of Insertion: 10/30/22 Urinary Catheter Time of Insertion: 09:00 Data 10/31/22 05:25 10/31/22 05:25 Micro: Microbiology 10/30/22 03:14 Blood Culture - Preliminary Blood Strep angino/s dysgalac(grp c) 10/30/22 16:17 MRSA Culture - Final Nose 10/30/22 04:09 Urine Culture - Preliminary Urine,Clean Catch Gram Negative Rods 10/30/22 03:21 Blood Culture - Preliminary Blood A&P Assessment and plan (1) Bacteremia due to Streptococcus: Repeat blood cultures in a.m. Follow-up sensitivities. (2) Septic shock: Keep mean artery pressure 65. Levophed turned off. Continue with normal saline at 100 cc/h. Strict and proper charting. Blood cultures positive for Streptococcus. Urine cultures positive for gram- negative rods. MRSA negative. Stop vancomycin and cefepime. Switch to ceftriaxone. Will de-escalate or change further as per clinical course. (3) Cellulitis of right leg: No limb Dopplers negative for DVT. No open wounds. (4) MERLY (acute kidney injury): likely 2/2 ATN from sepsis, hypotension CT abdomen with non obstrcutuing renal calculus Continue with Hernández catheter. Strict input output charting. Appreciate urine studies. Medical reconciliation done for nephrotoxic drugs. Renal functions back to baseline. Continue to monitor daily. No electrolyte abnormality. (5) Chronic atrial fibrillation: Takes amiodarone daily at home. Currently rate controlled. Continue with home dose of amiodarone 200 mg daily. Hold xarelto given scalp laceration with excessive bleeding. We will plan to start Xarelto within next 24 hours. (6) Cardiomyopathy: Echocardiogram done today shows a normal EF with LVH with concerns for mild LVOT obstruction with gradient of 2.1 m/s. No concerns for fluid overload. Qualifiers: Cardiomyopathy type: other Qualified Code(s): I42.8 - Other cardiomyopathies (7) Retrolisthesis of vertebrae: Seen on CT cervical spine. Appreciate MRI results. Patient complaining of difficulty swallowing. Appreciate orthopedic recommendations. Plan for physical therapy evaluation. Follow-up as an outpatient within 2 weeks of discharge. (8) Neck pain: (9) UTI (urinary tract infection): (10) Plaque psoriasis: Hold Humira (11) Fall: Mechanical likely from hypotension (12) Laceration of head: from fall s/p [place] in ER right posterior scalp CT head without intracranial injury Plan CODE STATUS: Full code. Heparin 5000 every 12 hourly for DVT prophylaxis. We will switch to Xarelto within next 24 hours. Protonix for PUD prophylaxis. GI soft regular diet. We will continue to monitor oral intake and if needed will go on liquid diet. PT evaluation. Discharge plan: Plan to discharge to home with home health versus SNF depending on physical therapy evaluation given significant fall and neck pain. Continue care at ICU. Care discussed in detail with patient and patient's caregiver at bedside. All the questions were answered. Attestations Medical Necessity Statement*: Patient requires further hospitalization and management of septic shock, strep bacteremia secondary to cellulitis, UTI, resolving MERLY and cervical injury Coding Level of Care Code Critical Care >/= 30 minutes Critical care time (in minutes): 70 The high probability of a clinically significant, sudden or life threatening deterioration, as referenced in this documentation, required my full and direct attention, intervention and personal management. The critical care time shown is in addition to time spent performing any reported separately billable procedures and includes the following: [x] Data and vital sign review and interpretation [x ] Patient assessment, examination and intervention [x] Medication orders and management [x] Patient/Family updates as able [x] Care Coordination and Documentation. Diagnoses Bacteremia due to Streptococcus R78.81; B95.5 Septic shock A41.9; R65.21 Cellulitis of right leg L03.115 MERLY (acute kidney injury) N17.9 Chronic atrial fibrillation I48.20 Cardiomyopathy I42.8 Cardiomyopathy type: other Retrolisthesis of vertebrae M43.10 Neck pain M54.2 UTI (urinary tract infection) N39.0 Plaque psoriasis L40.0 Fall W19.XXXA Laceration of head S01.91XA
[2022-10-31] MEDS: folic acid 1 mg Tablet PO (17:48)
[2022-11-01] VITALS (18 sets, daily range): BP systolic 106–159; BP diastolic 64–91; PULSE 67–89; RESP 14–22; TEMP 37.2; O2SAT 92–97
[2022-11-01] MEDS: sodium chloride 0.9% 1,000 ML 75 ML IV (01:39)
[2022-11-01] MEDS: HYDROmorphone 1 mg/mL INJ 1 mL 0.4 MG IVP ×2 (01:50→08:37)
[2022-11-01 06:01] LABS: Basophils % 0.3 %; Eosinophils # 0.1 10^3/uL (0.0-0.8); Eosinophils % 0.5 %; Hematocrit 32.7 % (42.0-52.0); Hemoglobin 10.4 g/dL (11.7-16.6); Lymphocytes # 0.8 10^3/uL (0.8-4.8); Lymphocytes % 5.2 %; Mean Corpuscular HGB Conc 31.8 g/dL (30.0-36.0); Mean Corpuscular Hemoglobin 30.1 pg (28.0-34.0); Mean Corpuscular Volume 94.8 fl (80-94); Mean Platelet Volume 9.6 fL (7.4-10.4); Monocytes # 0.9 10^3/uL (0.2-0.9); Neutrophils # 12.92 10^3/uL (1.8-7.7); Neutrophils % 87.6 %; Nucleated Red Blood Cells % 0 %; Platelet Count 119 10^3/cmm (130-400); Red Blood Count 3.45 10^6/uL (4.1-5.3); Red Cell Distribution Width 13.8 % (12.1-15.1); White Blood Count 14.7 10^3/uL (4.0-10.0)
[2022-11-01 06:19] LABS: Slide Review Slide Review Perform
[2022-11-01 06:24] LABS: Alanine Aminotransferase 16 U/L (0-41); Alkaline Phosphatase 75 U/L (40-130); Anion Gap 13.3 (5-19); Aspartate Amino Transferase 21 U/L (0-40); Blood Urea Nitrogen 15 mg/dL (8-23); Calcium 8.4 mg/dL (8.5-10.5); Carbon Dioxide 23 mmol/L (22-29); Chloride 103 mmol/L (98-107); Globulin 3.3 g/dL (1.3-4.6); Glucose 112 mg/dL (65-115); Osmolality Calculated 282 mOsm/kg (285-295); Potassium 4.3 mmol/L (3.5-5.1); Sodium 135 mmol/L (136-145); Total Bilirubin 0.4 mg/dL (0.15-1.2); Total Protein 6.3 g/dL (6.6-8.7)
[2022-11-01] MEDS: duloxetine 60 mg Capsule PO (08:36)
[2022-11-01] MEDS: atorvastatin 40 mg Tablet 20 MG PO (08:36)
[2022-11-01] MEDS: amiodarone 200 mg Tablet PO (08:37)
[2022-11-01] MEDS: HYDROcodone-acetaminophen 10-325 mg Tablet 1 TAB PO ×2 (08:37→15:21)
[2022-11-01] MEDS: pantoprazole DR 40 mg Tablet PO (08:37)
[2022-11-01] MEDS: folic acid 1 mg Tablet PO ×2 (08:37→17:39)
[2022-11-01] MEDS: gabapentin 300 mg Capsule 600 MG PO ×3 (08:37→20:19)
[2022-11-01] MEDS: terazosin 5 mg Capsule PO ×2 (08:38→17:39)
[2022-11-01] MEDS: cefTRIAXone 1,000 MG in sodium chloride 0.9% (plus) 50 ML 100 MG IV (10:31)
--- NOTE | 2022-11-01 15:05 | PC.NURSE ---
Patient received transfer orders to [place]. Also received removal of glass orders. Patient refused glass removal at this time.
--- NOTE | 2022-11-01 16:10 | P.PN_ITS ---
Subjective Subjective: No acute events overnight. Patient has remained hemodynamically stable and afebrile. Denies any nausea, vomiting, headache. Today morning during examination working with physical therapy Vitals/I&O/Wt Last Vital Signs Temp 98.9 F 11/01/22 04:00 Pulse 89 11/01/22 13:00 Resp 18 11/01/22 13:00 BP 142/81 11/01/22 10:00 Pulse Ox 97 11/01/22 08:15 O2 Del Method Nasal Cannula 11/01/22 08:15 O2 Flow Rate 1 11/01/22 08:15 11/01/22 11/01/22 11/01/22 06:59 14:59 22:59 Intake Total 1590 / 2715.461 650 / 650 1000 / 1650 Output Total 425 / 2775 1100 / 1100 Balance 1165 / -59.539 650 / 650 -100 / 550 Physical Exam Narrative: General: No acute distress, AO x3, HEENT: PERRLA, pupils bilaterally equal and reactive, pallors not present Chest: Normal vesicular breath sounds, no added sounds, equal good air entry bilaterally CVS: S1-S2 regular, no murmurs, no tachycardia, no gallops, no rubs Abdomen: Soft, nontender, no organomegaly, bowel sounds present, easily reducible anterior hernia, just right of midline Neuro: No focal deficits, no facial deformity, AO x3, power 5/5 in all limbs Extremities: B/L LE edema, appears to be lymphedema vs venous stasis. B/L LE stasis dermatitis with purple leg dicoloartion, with changes of cellulitis in RL E Urinary Catheter Management: Hernández: Cath Placed During This Visit: yes Reason for Continuing Indwelling Catheter: Accurate Measurement of Urinary Output in Critically Ill Patients Urinary Catheter Date of Insertion: 10/30/22 Urinary Catheter Time of Insertion: 09:00 Data 11/01/22 05:50 11/01/22 05:50 Micro: Microbiology 10/30/22 04:09 Urine Culture - Final Urine,Clean Catch Citrobacter koseri 11/01/22 05:50 Blood Culture - Preliminary Blood SPECIMEN COLLECTED 11/01/22 05:50 Blood Culture - Preliminary Blood SPECIMEN COLLECTED 10/30/22 03:14 Blood Culture - Preliminary Blood Strep angino/s dysgalac(grp c) 10/30/22 16:17 MRSA Culture - Final Nose A&P Assessment and plan (1) Bacteremia due to Streptococcus: Follow-up repeat blood cultures. So far negative. If remain negative for next 24 hours we will plan for a mid line placement. Patient would most likely need IV ceftriaxone 2 g daily for next 10 days to finish a 14-day course on discharge. Case management has been alerted. Follow-up sensitivities. (2) Septic shock: Patient eating well. Stop IV fluids. Strict and proper charting. DC Hernández catheter. Blood cultures positive for Streptococcus. Urine cultures positive for Citrobacter sensitive to ceftriaxone. MRSA negative. Continue with IV ceftriaxone 2 g daily. Will de-escalate or change further as per clinical course. (3) Cellulitis of right leg: No limb Dopplers negative for DVT. No open wounds. (4) MERLY (acute kidney injury): Resolved. Likely 2/2 ATN from sepsis, hypotension CT abdomen with non obstrcutuing renal calculus Continue with Hernández catheter. Strict input output charting. Appreciate urine studies. Medical reconciliation done for nephrotoxic drugs. Continue to monitor daily. No electrolyte abnormality. (5) Chronic atrial fibrillation: Takes amiodarone daily at home. Currently rate controlled. Continue with home dose of amiodarone 200 mg daily. Restart home dose of Xarelto today. (6) Cardiomyopathy: Echocardiogram done today shows a normal EF with LVH with concerns for mild LVOT obstruction with gradient of 2.1 m/s. No concerns for fluid overload. Qualifiers: Cardiomyopathy type: other Qualified Code(s): I42.8 - Other cardiomyopathies (7) Retrolisthesis of vertebrae: Seen on CT cervical spine. Appreciate MRI results. Patient complaining of difficulty swallowing. Appreciate orthopedic recommendations. Plan for physical therapy evaluation. Follow-up as an outpatient within 2 weeks of discharge. (8) Neck pain: (9) UTI (urinary tract infection): (10) Plaque psoriasis: Hold Humira (11) Fall: Mechanical likely from hypotension (12) Laceration of head: from fall s/p [place] in ER right posterior scalp CT head without intracranial injury Plan CODE STATUS: Full code. Heparin 5000 every 12 hourly for DVT prophylaxis. We will switch to Xarelto within next 24 hours. Protonix for PUD prophylaxis. GI soft regular diet. We will continue to monitor oral intake and if needed will go on liquid diet. PT evaluation. Transfer to [facility]. Discharge plan: Appreciate PT evaluation. Plan to discharge home with home health within next 24 hours if remains hemodynamically stable and blood cultures remain negative with IV ceftriaxone daily for next 10 days. Discussed in detail with the patient about IV ceftriaxone at home with home health versus outpatient GI Lab. Patient would want to discuss with case management regarding expenses before making a decision. Care discussed in detail with patient and patient's caregiver at bedside. All the questions were answered. Attestations Medical Necessity Statement*: JudgmentRequires further hospitalization of Streptococcus bacteremia in setting of cellulitis, Citrobacter UTI in a patient with resolving septic shock and acute kidney injury Diagnoses Bacteremia due to Streptococcus R78.81; B95.5 Septic shock A41.9; R65.21 Cellulitis of right leg L03.115 MERLY (acute kidney injury) N17.9 Chronic atrial fibrillation I48.20 Cardiomyopathy I42.8 Cardiomyopathy type: other Retrolisthesis of vertebrae M43.10 Neck pain M54.2 UTI (urinary tract infection) N39.0 Plaque psoriasis L40.0 Fall W19.XXXA Laceration of head S01.91XA
[2022-11-01] MEDS: acetaminophen 325 mg Tablet 650 MG PO (17:39)
[2022-11-02] VITALS: BP 142/73; PULSE 77; RESP 19; TEMP 37; O2SAT 92
[2022-11-02] MEDS: HYDROcodone-acetaminophen 10-325 mg Tablet 1 TAB PO ×3 (00:40→14:54)
[2022-11-02 03:45] VITALS: RESP 18
[2022-11-02] MEDS: morphine 4 mg/mL SDV 1 mL 2 MG IVP (03:45)
[2022-11-02 04:00] VITALS: BP 140/72; PULSE 70; RESP 18; TEMP 37.1; O2SAT 93
[2022-11-02 05:34] LABS: Basophils % 0.3 %; Eosinophils # 0.1 10^3/uL (0.0-0.8); Hematocrit 31.9 % (42.0-52.0); Hemoglobin 10.5 g/dL (11.7-16.6); Lymphocytes # 1.4 10^3/uL (0.8-4.8); Lymphocytes % 10.6 %; Mean Corpuscular HGB Conc 32.9 g/dL (30.0-36.0); Mean Corpuscular Hemoglobin 30.4 pg (28.0-34.0); Mean Corpuscular Volume 92.5 fl (80-94); Mean Platelet Volume 9.4 fL (7.4-10.4); Monocytes # 1.2 10^3/uL (0.2-0.9); Monocytes % 9.2 %; Neutrophils % 77.9 %; Nucleated Red Blood Cells % 0 %; Platelet Count 146 10^3/cmm (130-400); Red Blood Count 3.45 10^6/uL (4.1-5.3); Red Cell Distribution Width 13.8 % (12.1-15.1); White Blood Count 13.4 10^3/uL (4.0-10.0)
[2022-11-02 06:14] LABS: Alanine Aminotransferase 15 U/L (0-41); Alkaline Phosphatase 64 U/L (40-130); Anion Gap 14.5 (5-19); Aspartate Amino Transferase 18 U/L (0-40); Blood Urea Nitrogen 14 mg/dL (8-23); Calcium 8.4 mg/dL (8.5-10.5); Carbon Dioxide 23 mmol/L (22-29); Chloride 103 mmol/L (98-107); Globulin 3.2 g/dL (1.3-4.6); Glucose 92 mg/dL (65-115); Osmolality Calculated 284 mOsm/kg (285-295); Potassium 3.5 mmol/L (3.5-5.1); Sodium 137 mmol/L (136-145); Total Bilirubin 0.4 mg/dL (0.15-1.2); Total Protein 6.2 g/dL (6.6-8.7)
[2022-11-02 07:56] VITALS: BP 144/79; PULSE 74; RESP 17; TEMP 37.2; O2SAT 94
[2022-11-02] MEDS: atorvastatin 40 mg Tablet 20 MG PO (08:44)
[2022-11-02] MEDS: allopurinol 100 mg Tablet PO (08:44)
[2022-11-02] MEDS: rivaroxaban 10 mg Tablet 20 MG PO (08:44)
[2022-11-02] MEDS: folic acid 1 mg Tablet PO (08:44)
[2022-11-02] MEDS: terazosin 5 mg Capsule PO (08:44)
[2022-11-02] MEDS: cefTRIAXone 2,000 MG in sodium chloride 0.9% (plus) 50 ML 100 MG IV (08:45)
[2022-11-02] MEDS: pantoprazole DR 40 mg Tablet PO (08:45)
[2022-11-02] MEDS: amiodarone 200 mg Tablet PO (08:45)
[2022-11-02] MEDS: gabapentin 300 mg Capsule 600 MG PO (08:45)
[2022-11-02] MEDS: duloxetine 60 mg Capsule PO (08:45)
--- NOTE | 2022-11-02 10:00 | PC.NURSE ---
Midline placed to left basilic vein without difficulty. Pt to receive 10 days IV antibiotics. Informed consent obtained from patient prior to placement. Mid-arm circumference measured from left AC 36 cm. Trimmed midline cath 10 cm with 1 cm external length noted. Dressing due to be changed 11/03/22. Report given to bedside nurseRenny.
--- NOTE | 2022-11-02 11:31 | PC.SOCIAL ---
Imm update Imm updated with patient at bedside. Copy of page 2 provided. Patient verbalized understanding. Copy in chart initialed, dated and timed.
[2022-11-02 11:55] VITALS: BP 150/73; PULSE 80; RESP 18; TEMP 37.2; O2SAT 94
--- NOTE | 2022-11-02 12:24 | PM.DCS ---
Discharge Providers Date of Admission: 10/30/22 05:18 Date of Discharge: November 02, 2022 Attending Provider at Admission: Aarti Brito MD Attending Provider at Discharge: Abdirahman Schuler MD Consults: Orthopedic surgery: Dr. Grace Primary Care Provider: Mckenna Rodriguez Diagnoses at Discharge Discharge Diagnosis (1) Bacteremia due to Streptococcus: Status: Acute (2) Septic shock: Status: Acute (3) Cellulitis of right leg: Status: Acute (4) MERLY (acute kidney injury): Status: Acute (5) Chronic atrial fibrillation: Status: Acute (6) Cardiomyopathy: Status: Acute Qualifiers: Cardiomyopathy type: other Qualified Code(s): I42.8 - Other cardiomyopathies (7) Retrolisthesis of vertebrae: Status: Acute (8) Neck pain: Status: Acute (9) UTI (urinary tract infection): Status: Acute (10) Plaque psoriasis: Status: Acute Permanent problem details: Hip OA -followup with Orthopedics for injections (11) Fall: Status: Acute (12) Laceration of head: Status: Acute Reason for Visit Reason for Visit: FALL Brief History: History as per HPI: Hira White is a 62 year old male with PMH A fib. CAD ,psoriatic arthritis on Humira, DVT, CHF presneting to ER today with c/o fall at home. Patient states that he has been feeling weak and lethargic since yesterday. Today when he went to use the bathroom, he feel and struck his head which resulted in a scalp laceration. On arrival at ER he was hypotensive with SBP 60s. Central line was placed, received sepsis bolus and started on levophed. He c/o subjective fever and chills. Denies any chest pain, cough, URI symptoms, dyspnea, palpitations, NVD. Recent history notable for Right JAIDA on 08/26/22. He appears to have chronic LE edema with stasis dermatitis. His RLE has changes of cellulitis, on asking specifically states that right leg has felt as if burning over the past 2 day. He is unable to tell me if right leg apepars abnormal compared to previosuly as he cant look at his own legs . Family currently N/a. Reports PMH cellulitis episodes, however none severe enough to warrant admission Hospital Course Hospital Course Patient was admitted to the hospital for evaluation and management. On admission he was found to be in septic shock requiring IV fluid boluses and vasopressors and admitted to ICU. Started on broad-spectrum antibiotics. Given the history of fall prior to admission multiple images were done which were negative for acute fractures but CT cervical spine was consistent with 4 mm retrolisthesis. Patient continued to complain of severe neck pain and mild difficulty in swallowing for which neurosurgery was consulted and he went MRI. He was advised physical therapy and outpatient follow-up with orthopedic surgery. During hospitalization patient's blood culture came back positive for Streptococcus and urine culture came back positive for Citrobacter. Antibiotics were tailored down to IV ceftriaxone. His repeat blood cultures remain negative. Patient continued to work well with physical therapy. He has been discharged in hemodynamically stable condition with IV ceftriaxone for 10 more days. Midline has been placed. He is to have CBC and CMP in 1 week. Midline is to be removed after completion of course of antibiotics. Patient was found to have an A1c of 4.9. He should discuss in detail with his primary care provider on decreasing the dose of home dose of Ozempic. He is not to take Bumex and torsemide for now. Only to be taken as needed if body weight increases by 10 pounds of the current body weight. Physical Exam Narrative: General: No acute distress, AO x3, HEENT: PERRLA, pupils bilaterally equal and reactive, pallors not present Chest: Normal vesicular breath sounds, no added sounds, equal good air entry bilaterally CVS: S1-S2 regular, no murmurs, no tachycardia, no gallops, no rubs Abdomen: Soft, nontender, no organomegaly, bowel sounds present, easily reducible anterior hernia, just right of midline Neuro: No focal deficits, no facial deformity, AO x3, power 5/5 in all limbs Extremities: B/L LE edema, appears to be lymphedema vs venous stasis. B/L LE stasis dermatitis with purple leg dicoloartion, with changes of cellulitis in RLE Urinary Catheter Management: Hernández: Cath Placed During This Visit: yes, but has since been removed by the nurse Reason for Continuing Indwelling Catheter: Decision to DC Catheter Urinary Catheter Date of Insertion: 10/30/22 Urinary Catheter Time of Insertion: 09:00 Date Urinary Catheter Removed: 11/01/22 Time Urinary Catheter Discontinued: 18:32 Discharge Data Studies Completed and Pending Completed Studies During Hospitalization Category Date Time Status CT cervical spin wo con* [id number] Stat Cat Scan 10/30/22 01:[address] [place] [id number] Stat Cat Scan 10/30/22 02:[address] head wo con* [id number] Stat Cat Scan 10/30/22 01:56 Completed CXRP [XR chest 1V portable [id number]] Stat Exams 10/30/22 03:06 Completed XR chest 1V portable [id number] Stat Exams 10/30/22 01:57 Completed XR knee LT 3V* [id number] Stat Exams 10/30/22 01:56 Completed XR knee RT 3V* [id number] Stat Exams 10/30/22 01:56 Completed MR cervical spin wo con* [id number] Routine MRI 10/30/22 09:45 [place] [id number] Stat Ultrasound 10/30/22 03:37 Completed CV. echo complete* [id number] Routine Ultrasound 10/30/22 08:39 Completed Pending at discharge Category Date Time Status Blood Culture AM LABS Lab 11/01/22 05:50 Results Blood Culture Stat Lab 10/30/22 03:21 Results Radiology Impressions Cervical Spine CT 10/30/22 01:56 IMPRESSION: 1. No fracture. 2. There is 4 mm retrolisthesis of C3 on C4, likely degenerative with severe disc space narrowing, secondary to degenerative disease. Head CT 10/30/22 01:56 IMPRESSION: 1. No acute infarct or hemorrhage. 2. No calvarial or skull base fracture. Knee X-Ray 10/30/22 01:56 IMPRESSION: No acute findings. Chest/Abdomen/Pelvis CT 10/30/22 02:09 IMPRESSION: 1. No evidence of acute injury. 2. Mild cardiomegaly. IMPRESSION: 1. No evidence of acute injury. 2. 5 mm nonobstructing left renal pelvis stone. 3. Mild constipation. 4. Multiple fat containing ventral hernias, largest is 4.5 cm. 5. Severe left hip osteoarthritis. Chest X-Ray 10/30/22 03:06 IMPRESSION: 1. Patient is rotated to the right and there is a poor inspiration. 2. Right central venous catheter with tip overlying the overlies the proximal superior vena cava. No pneumothorax. Venous Duplex 10/30/22 03:37 IMPRESSION: 1. Multiple nonspecific enlarged right inguinal lymph nodes. 2. No DVT. Cervical Spine MRI 10/30/22 09:45 IMPRESSION: 1. No fracture or acute finding. 2. Discogenic and facet degenerative changes at C3-C4 with retrograde subluxation of C3. 3. The most significant central canal stenosis is mild-moderate at C3-C4 and C5-C6. 4. The most significant foraminal stenosis is severe on the right at C3-C4 and moderate bilaterally at C5-C6. Echocardiogram: CONCLUSIONS ?Normal left ventricular size and systolic function, EF 55 %. ?Mild left ventricular hypertrophy.no regional wall motion ?abnormalities.? ?Elevated LV outflow tract velocity suggesting mild LV outflow ?obstruction. ?Features of aortic valve sclerosis with a peak velocity of 1.84 ?m/s. ?Trace tricuspid valve regurgitation. ?There is no pericardial effusion. ?Technically difficult study because of the poor ultrasonic ?window. ?Dr Aram Palencia MD [facility] ?(Electronically Signed) ?Final Date:? ? ? 31 Oct 2022 Microbiology 11/01/22 05:50 Blood Blood Culture - Preliminary NEGATIVE TO DATE 11/01/22 05:50 Blood Blood Culture - Preliminary NEGATIVE TO DATE 10/30/22 03:14 Blood Blood Culture - Preliminary Strep angino/s dysgalac(grp c) 10/30/22 04:09 Urine,Clean Catch Urine Culture - Final Citrobacter koseri 10/30/22 16:17 Nose MRSA Culture - Final 10/30/22 03:21 Blood Blood Culture - Preliminary 10/30/22 10:20 Urine Kidney Bacterial Antigens - Final Laboratory Results WBC 13.4 10^3/uL (4.0-10.0) H 11/02/22 05:19 RBC 3.45 10^6/uL (4.1-5.3) L 11/02/22 05:19 Hgb 10.5 g/dL (11.7-16.6) L 11/02/22 05:19 Hct 31.9 % (42.0-52.0) L 11/02/22 05:19 MCV 92.5 fl (80-94) 11/02/22 05:19 MCH 30.4 pg (28.0-34.0) 11/02/22 05:19 MCHC 32.9 g/dL (30.0-36.0) 11/02/22 05:19 RDW 13.8 % (12.1-15.1) 11/02/22 05:19 Plt Count 146 10^3/cmm (130-400) 11/02/22 05:19 MPV 9.4 fL (7.4-10.4) 11/02/22 05:19 Neut % (Auto) 77.9 % 11/02/22 05:19 Lymph % (Auto) 10.6 % 11/02/22 05:19 [place] % (Auto) 9.2 % 11/02/22 05:19 Eos % (Auto) 1.0 % 11/02/22 05:19 Baso % (Auto) 0.3 % 11/02/22 05:19 Neut # (Auto) 10.40 10^3/uL (1.8-7.7) H 11/02/22 05:19 Lymph # (Auto) 1.4 10^3/uL (0.8-4.8) 11/02/22 05:19 [place] # (Auto) 1.2 10^3/uL (0.2-0.9) H 11/02/22 05:19 Eos # (Auto) 0.1 10^3/uL (0.0-0.8) 11/02/22 05:19 Baso # (Auto) 0.0 10^3/uL (0.0-0.1) 11/02/22 05:19 Nucleated RBC % (auto) 0 % 11/02/22 05:19 Total Counted 100 (0-100) 10/30/22 01:55 Atypical Lymphs % 0.0 % (0-5) 10/30/22 01:55 Absolute Neutrophils 18.9 10^3/cmm (1.4-6.5) H 10/30/22 01:55 Segmented Neutrophils 75 % 10/30/22 01:55 Abs Segm Neuts (Man) 15.1 10/cmm (1.6-7.1) H 10/30/22 01:55 Band Neutrophils 19.0 % 10/30/22 01:55 Abs Band Neuts (Man) 3.8 10^3/cmm (0.0-1.2) H 10/30/22 01:55 Absolute Lymphocytes 0.8 10^3/cmm (1.2-3.4) L 10/30/22 01:55 Lymphocytes (Manual) 4 % 10/30/22 01:55 Monocytes (Manual) 2.0 % 10/30/22 01:55 Absolute Monocytes 0.4 10^3/cmm (0.1-0.6) 10/30/22 01:55 Eosinophils (Manual) 0 % 10/30/22 01:55 Absolute Eosinophils 0.0 10^3/cmm (0.0-0.7) 10/30/22 01:55 Basophils (Manual) 0.0 % 10/30/22 01:55 Absolute Basophils 0.0 10^3/cmm (0.0-0.2) 10/30/22 01:55 Nucleated RBCs # 0.0 /100WBC 11/02/22 05:19 Platelet Estimate Normal (Normal) 10/30/22 01:55 Sodium 137 mmol/L (136-145) 11/02/22 05:19 Potassium 3.5 mmol/L (3.5-5.1) 11/02/22 05:19 Chloride 103 mmol/L (98-107) 11/02/22 05:19 Carbon Dioxide 23 mmol/L (22-29) 11/02/22 05:19 Anion Gap 14.5 (5-19) 11/02/22 05:19 BUN 14 mg/dL (8-23) 11/02/22 05:19 Creatinine 0.6 mg/dL (0.7-1.2) L 11/02/22 05:19 GFR Calculation 137.0 mL/min (90-130) H 11/02/22 05:19 Glucose 92 mg/dL (65-115) 11/02/22 05:19 POC Glucose 119 mg/dL (70-110) H 10/31/22 07:26 Estimat Average Glucose 94 10/31/22 05:25 Hemoglobin A1c 4.9 % (4.0-6.0) 10/31/22 05:25 Calculated Osmolality 284 mOsm/kg (285-295) L 11/02/22 05:19 Lactic Acid 4.7 mmol/L (0.5-2.2) H* 10/30/22 02:15 Lactic Acid (Sepsis) 3.4 mmol/L (0.5-2.2) H 10/30/22 04:48 Lactate 1.9 mmol/L (0.5-2.2) 10/30/22 16:05 Calcium 8.4 mg/dL (8.5-10.5) L 11/02/22 05:19 Iron 15 ug/dL (59-158) L 10/30/22 08:36 TIBC 221 mcg/dl 10/30/22 08:36 % Saturation 6.7 % (20-50) L 10/30/22 08:36 Unsat Iron Binding 206 ug/dL (112-347) 10/30/22 08:36 Total Bilirubin 0.4 mg/dL (0.15-1.2) 11/02/22 05:19 AST 18 U/L (0-40) 11/02/22 05:19 ALT 15 U/L (0-41) 11/02/22 05:19 Alkaline Phosphatase 64 U/L (40-130) 11/02/22 05:19 Troponin T Baseline 48 ng/L (0-15) H 10/30/22 01:55 Troponin T 120 Minute 28.53 ng/L (0-15) H 10/30/22 04:48 Delta Troponin T -19.47 ABS# (0-10) L 10/30/22 04:48 Troponin T Hi Sens 6Hr 32.22 ng/L (0-15) H 10/30/22 08:36 Troponin T Hi Sens 6Hr Delta -15.78 ng/L (0-12) L 10/30/22 08:36 NT-Pro-B Natriuret Pep 1001 pg/mL (0-125) H 10/30/22 01:55 Total Protein 6.2 g/dL (6.6-8.7) L 11/02/22 05:19 Albumin 3.0 g/dL (3.5-5.2) L 11/02/22 05:19 Globulin 3.2 g/dL (1.3-4.6) 11/02/22 05:19 Triglycerides 69 mg/dL (0-150) 10/31/22 05:25 Cholesterol 45 mg/dL (0-200) 10/31/22 05:25 LDL Cholesterol, Calc 11 mg/dL (50-129) L 10/31/22 05:25 Total VLDL Cholesterol 14 mg/dL (0-30) 10/31/22 05:25 HDL Cholesterol 20 mg/dL (60-100) L 10/31/22 05:25 Cholesterol/HDL Ratio 2.25 mg/dL (1.0-5.00) 10/31/22 05:25 Vitamin B12 408 pg/mL (232-1245) 10/30/22 08:36 Folate 2.7 ng/mL (4.5-32.2) L 10/31/22 05:25 Procalcitonin 12.10 ng/mL (0-0.5) H 10/30/22 08:36 TSH 2.21 uIU/mL (0.27-4.20) 10/30/22 08:36 Urine Color Yellow (Yellow) 10/30/22 04:09 Urine Appearance Sl hazy (CLEAR) A 10/30/22 04:09 Urine pH 5 (5-7) 10/30/22 04:09 Ur Specific [place] 1.015 (1.005-1.030) 10/30/22 04:09 Urine Protein Neg (Negative) 10/30/22 04:09 Urine Glucose (UA) Norm (Normal) 10/30/22 04:09 Urine Ketones Negative (Negative) 10/30/22 04:09 Urine Blood Neg (Negative) 10/30/22 04:09 Urine Nitrate Negative (Negative) 10/30/22 04:09 Urine Bilirubin Neg (Negative) 10/30/22 04:09 Urine Urobilinogen Neg mg/dL (Negative) 10/30/22 04:09 Ur Leukocyte Esterase 1+ (Negative) H 10/30/22 04:09 Urine RBC 0-4 /hpf (0-2) H 10/30/22 04:09 Urine WBC 5-10 /hpf (0-5) H 10/30/22 04:09 Ur Squamous Epith Cells 0-4 /hpf (0-5) H 10/30/22 04:09 Amorphous Sediment Not Reportable 10/30/22 04:09 Urine Bacteria 3+ /hpf (NONE) H 10/30/22 04:09 Urine Mucus 2+ /hpf 10/30/22 04:09 Vitals Last Vital Signs Temp 99.0 F 11/02/22 11:55 Pulse 80 11/02/22 11:55 Resp 18 11/02/22 11:55 BP 150/73 11/02/22 11:55 Pulse Ox 94 11/02/22 11:55 O2 Del Method Room Air 11/02/22 04:00 O2 Flow Rate 0 11/01/22 20:29 Discharge Plan Discharge Patient Disposition: Home Health Service Condition: Stable Prescriptions: New cephalexin 500 mg capsule 500 mg PO Q12H 7 Days Qty: 14 0RF Rx Instructions: Take only in case of repeat cellulitis Continued allopurinol 100 mg tablet 100 mg PO DAILY hydrocodone-acetaminophen 10-325 mg tablet 1 tab PO Q6H PRN (Reason: Pain) celecoxib [Celebrex] 200 mg capsule 200 mg PO BID oxybutynin chloride 5 mg tablet 5 mg PO DAILY atorvastatin 20 mg tablet 20 mg PO DAILY gabapentin 800 mg tablet 1,200 mg PO TID (DME) Diabetic Shoes See Rx Instructions .ROUTE .MEDSUPPLY Qty: 1 0RF Rx Instructions: As directed (DME) MIRA PLUNKETT See Rx Instructions .ROUTE .MEDSUPPLY Qty: 1 0RF Rx Instructions: As directed terazosin 5 mg capsule 5 mg PO BID cholecalciferol (vitamin D3) 50 mcg (2,000 unit) capsule 50 mcg PO DAILY duloxetine 60 mg capsule,delayed release(DR/EC) 60 mg PO DAILY amiodarone 200 mg tablet 200 mg PO DAILY Qty: 90 3RF Xarelto 20 mg tablet 20 mg PO DAILY Qty: 90 3RF Rx Instructions: must administer with evening meal testosterone cypionate 200 mg/mL oil See Rx Instructions .ROUTE .COMPLEX Rx Instructions: as directed Ozempic 2 mg/dose (8 mg/3 mL) Pen Injector See Rx Instructions .ROUTE .COMPLEX Rx Instructions: as directed Held torsemide 10 mg tablet 10 mg PO DAILY Hold Instructions: Resume on 11/16/22. No Action bumetanide 2 mg tablet 2 mg PO DAILY Humira Pen 40 mg/0.8 mL pen injector kit See Rx Instructions SUBCUT .COMPLEX Qty: 4 5RF Rx Instructions: inject one - 40 mg/0.8 mL pen every 2 weeks SUBCUT Discharge Orders: Discharge Order (Routine); Ordered 11/02/22 Ordered By: Abdirahman Schuler Referrals: [facility] – [place] [facility] ([facility]) [Outside] Gigi Grace, [Physician] - (Please call Dr. Grace's office Elijah morning to schedule a follow up appointment within 2 weeks. ) Mckenna Rodriguez [Primary Care Provider] - (Please call Friday to schedule your follow up appointment with Mckenna Rodriguez.) Discharge Diet: Cardiac and Diabetic Discharge Activity: Limit activity as instructed Patient Instructions: Urinary Tract Infection in Men (GEN), Bacteremia (GEN), PICC (Peripherally Inserted Central Catheter) (GEN), Opioid Safety Activity Restrictions/Additional Instructions: Continue with IV ceftriaxone daily for next 10 days. Repeat CBC and CMP in 1 week. Do not take Bumex and torsemide for now. Check your body weight daily at home. If your body weight increases by 10 pounds of your current body weight you can take Bumex at as-needed basis. Please check your blood pressure daily at home and maintain a blood pressure diary and follow-up with a primary care provider within next 2 weeks for further adjustment of antihypertensives. You should discuss with the primary care provider about decreasing the dose of Ozempic as her A1c is less than 5. Thank you for choosing [facility] for your care! The following is a list of instructions, from your provider, to follow upon your discharge to ensure you have the optimal recovery from your recent injury. What to Expect at Home Your Recovery Follow-up care is a johnson part of your treatment and safety. Be sure to make and go to all appointments, and call your doctor if you are having problems. If you do not already have a follow-up appointment made, call office in the next 1-3 days to make follow up appointment for 1-2 weeks at [phone]. It is also a good idea to know your test results and keep a list of the medicines you take. You can expect your neck to feel stiff or sore after injury. How can you care for yourself at home? Activity ? Rest when you feel tired. Getting enough sleep will help you recover. ? Try to walk each day. Start by walking a little more than you did the day before. Bit by bit, increase the amount you walk. Walking boosts blood flow and helps prevent pneumonia and constipation. Walking may also decrease your muscle soreness after surgery. ? No lifting anything that is more that 5 pounds. This may include heavy grocery bags and milk containers, a heavy briefcase or backpack, cat litter or dog food bags, a child, or a vacuum cleaner furniture. ? Avoid strenuous activities, such as bicycle riding, jogging, weightlifting, or aerobic exercise, until your doctor says it is okay. ? Activities as tolerated with the cervical spine be cautious with overhead lifting due to the arthritic right shoulder condition as well. We will see him back in the office in 1 to 2 weeks for outpatient evaluation of his cervical spine and consideration of pain clinic work-up with cervical facet blocks. Discharge Attestations Time Spent in Discharge Care*: greater than 30 min Specific Discharge Activities: educating patient, educating and/or supporting family/caregiver, discussing with pcp/other providers, discussing with caser up/social workers/dc planners, documenting/other paperwork and evaluating patient/reviewing data Status at Discharge: Cognitive status at discharge: cognitively intact, Behavioral status at discharge: cooperative, Functional status at discharge: uses cane/walker, Overall status at discharge: patient is back to baseline Quality Metrics Clinical Quality Measures [ No reported AMI, CVA or VTE this stay] Coding Level of Care Code 62493 Total time (in minutes) for Discharge: 60 Diagnoses Bacteremia due to Streptococcus R78.81; B95.5 Septic shock A41.9; R65.21 Cellulitis of right leg L03.115 MERLY (acute kidney injury) N17.9 Chronic atrial fibrillation I48.20 Cardiomyopathy I42.8 Cardiomyopathy type: other Retrolisthesis of vertebrae M43.10 Neck pain M54.2 UTI (urinary tract infection) N39.0 Plaque psoriasis L40.0 Fall W19.XXXA Laceration of head S01.91XA
--- NOTE | 2022-11-02 12:41 | PC.NURSE ---
Dressing removed from right jugular. Stitches removed and central line removed. 2x2 and pressure applied for approximately 5min then applied a bio-occlusive applied. Tip of catheter intact and patient tolerated well.
[2022-11-02 15:19] VITALS: BP 150/73; PULSE 80; RESP 18; TEMP 37.2; O2SAT 94
== END 2022-11-02 15:24 | disposition home health service (06) | DRG 871 ==
LOC: ER 04:46 → ICU 05:19 → MEDSURG 11-01 15:29
PROVIDERS: Admitting Provider Student in an Organized Health Care Education/Training Program; Emergency Provider Emergency Medicine; PCP Registered Nurse; Visit Provider Student in an Organized Health Care Education/Training Program
DX: A40.8 Other streptococcal sepsis (principal); N17.0 Acute kidney failure with tubular necrosis; R65.21 Severe sepsis with septic shock; I48.20 Chronic atrial fibrillation, unspecified; L03.115 Cellulitis of right lower limb; N39.0 Urinary tract infection, site not specified; I42.9 Cardiomyopathy, unspecified; Z68.41 Body mass index [BMI] 40.0-44.9, adult; W18.30XA Fall on same level, unspecified, initial encounter; I25.10 Atherosclerotic heart disease of native coronary artery without angina pectoris; L40.50 Arthropathic psoriasis, unspecified; Z86.718 Personal history of other venous thrombosis and embolism; I10 Essential (primary) hypertension; I95.9 Hypotension, unspecified; B96.89 Other specified bacterial agents as the cause of diseases classified elsewhere; Z79.01 Long term (current) use of anticoagulants; M43.12 Spondylolisthesis, cervical region; S01.01XA Laceration without foreign body of scalp, initial encounter; Z96.641 Presence of right artificial hip joint; Z88.0 Allergy status to penicillin; E86.0 Dehydration; Z79.899 Other long term (current) drug therapy; M19.90 Unspecified osteoarthritis, unspecified site; E11.9 Type 2 diabetes mellitus without complications; G89.29 Other chronic pain; M54.9 Dorsalgia, unspecified; E66.9 Obesity, unspecified
CPT/HCPCS: 12001; 36415; 36416; 36556; 36569; 51702; 70450; 71045; 71250; 72125; 72141; 73562; 74176; 80048; 80053; 80061; 81001; 82607; 82746; 82962; 83036; 83540; 83550; 83605; 83880; 84145; 84443; 84484; 85007; 85025; 86403; 87040; 87077; 87086; 87150; 87186; 87205; 87641; 93005; 93306; 93971; 96365; 96366; 96367; 96376; 97161; 97530; 99285; 99291; C1751; J0692; J0696; J1170; J2270; J3370; J3490; J7030; J7050; J7060

== ENCOUNTER → 2022-11-21 10:27 | Outpatient (BNVA) | payer MEDICARE, MEDICAID, SELFPAY | PROVIDERS: PCP Registered Nurse; Visit Provider Orthopaedic Surgery | DX: M50.30 Other cervical disc degeneration, unspecified cervical region (principal) | CPT/HCPCS: 72050; 99204 ==

== ENCOUNTER → 2022-11-25 09:28 | Outpatient (BNVA) | payer MEDICARE, MEDICAID, SELFPAY | PROVIDERS: PCP Registered Nurse; Visit Provider Clinical Nurse Specialist Adult Health | DX: Z01.818 Encounter for other preprocedural examination (principal) | CPT/HCPCS: 80048; 81000; 85025 ==

== ENCOUNTER → 2022-11-26 09:53 | Outpatient (BNVA) | payer MEDICARE, MEDICAID, SELFPAY | PROVIDERS: PCP Registered Nurse; Visit Provider Orthopaedic Surgery | DX: M16.12 Unilateral primary osteoarthritis, left hip (principal); M06.9 Rheumatoid arthritis, unspecified | CPT/HCPCS: 73502; 99213 ==

== ENCOUNTER 2022-12-02 13:23 | Observation (INO) | payer MEDICARE, MEDICAID, SELFPAY ==
[2022-11-25 10:09] VITALS: BMI 40.4
--- NOTE | 2022-11-25 14:20 | ANES.PREANE2 ---
Pre-Anesthetic Assessment Height/Weight: Height 1.73 m Weight 120.656 kg Operation Date: 12/02/22 09:45 Proposed Procedures p Total Hip Arthroplasty(Left) - Shaquille Dutton MD Familial anesthetic complications: none Was Beta Iveth taken within 24 hours: N/A Was Clonidine taken within 24 hours: N/A Social No alcohol and No tobacco Exam alert, oriented x 3, clear to auscultation bilaterally and regular rate & rhythm Airway Submandibular: within normal limits Cervical ROM: within normal limits Mallampati: Class III Dentition: partials CV/HEM Atrial Fibrillation, Congestive Heart Failure and Deep Vein Thrombosis Metabolic Diabetes Mellitus, Hyperlipidemia and Morbid Obesity Anesthetic Plan ASA status: 3 Anesthesia: Regional (specify below) (SAB) Other: Previous hip in last year under spinal without issue. Medications/Allergies Home Medications Medication Instructions Recorded Confirmed Last Taken Type atorvastatin 20 mg tablet 20 mg PO DAILY 12/02/19 11/25/22 11/25/22 History celecoxib 200 mg capsule (Celebrex) 200 mg PO BID 12/02/19 11/25/22 11/25/22 History hydrocodone 10 mg-acetaminophen 1 tab PO Q6H PRN Pain 12/02/19 11/25/22 11/25/22 History 325 mg tablet oxybutynin chloride 5 mg tablet 5 mg PO DAILY 12/02/19 11/25/22 11/25/22 History CAM WALKER #1 ea 12/23/19 11/25/22 Unknown Rx Diabetic Shoes #1 ea 12/23/19 11/25/22 Unknown Rx adalimumab 40 mg/0.8 mL See Rx Instructions SUBCUT 03/07/20 11/25/22 11/25/22 Rx subcutaneous pen kit (Humira Pen) .COMPLEX #4 ea allopurinol 100 mg tablet 100 mg PO DAILY 09/07/20 11/25/22 11/25/22 History cholecalciferol (vitamin D3) 50 50 mcg PO DAILY 03/27/21 11/25/22 11/25/22 History mcg (2,000 unit) capsule duloxetine 60 mg capsule,delayed 60 mg PO DAILY 03/27/21 11/25/22 11/25/22 History release terazosin 5 mg capsule 5 mg PO BID 03/27/21 11/25/22 11/25/22 History bumetanide 2 mg tablet 2 mg PO DAILY 09/11/21 11/25/22 11/25/22 History gabapentin 800 mg tablet 1,200 mg PO TID 09/11/21 11/25/22 11/25/22 History amiodarone 200 mg tablet 200 mg PO DAILY #90 tabs 02/11/22 11/25/22 11/25/22 Rx rivaroxaban 20 mg tablet (Xarelto) 20 mg PO DAILY #90 tabs 07/31/22 11/25/22 11/25/22 Rx semaglutide 2 mg/dose (8 mg/3 mL) See Rx Instructions .Route .COMPLEX 08/16/22 11/25/22 11/25/22 History subcutaneous pen injector (Ozempic) testosterone cypionate 200 mg/mL 200 mg IM 10/30/22 11/21/22 Unknown History intramuscular oil torsemide 10 mg tablet 10 mg PO DAILY 10/30/22 11/25/22 11/25/22 History Allergies Allergy/AdvReac Type Severity Reaction Status Date / Time Penicillins Allergy ALGY-Rash Verified 11/25/22 10:01 [facility] Anesthesia Medical History (Updated 11/25/22 @ 08:46 by Jayme Simpson NP) Afib Cardiomyopathy Chronic atrial fibrillation Chronic back pain Diabetes High risk medication use High risk medication use joint pain Hx of deep venous thrombosis Hypertension Leg edema Osteoarthritis involving multiple joints on both sides of body Plaque psoriasis Hip OA -followup with Orthopedics for injections Psoriatic arthritis Vitamin D deficiency Surgical History (Updated 11/25/22 @ 08:45 by Jayme Simpson NP) Status post right hip replacement Family History Father Cancer Hypertension Stroke Brother Cancer Hypertension Sister Diabetes Mother Dementia Other Rheumatoid arthritis Denies family history of Lupus CAD (coronary artery disease) Clotting disorder Chronic kidney disease (CKD) Suicide Anesthesia complication Bleeding disorder Lung disease Social History Smoking and tobacco status: never smoked Alcohol intake: never Substance/Drug Use: never Data Anesthesia Cardiac Studies: Echocardiogram 10/30/22 Echocardiogram Ultrasound 07/12/20
[2022-12-02] VITALS (14 sets, daily range): BP systolic 97–134; BP diastolic 48–76; PULSE 58–82; RESP 12–20; TEMP 36.1–36.6; O2SAT 93–97
[2022-12-02] MEDS: sodium chloride 0.9% 1,000 ML 30 ML IV (10:10)
[2022-12-02] MEDS: CELEcoxib 200 mg Capsule 400 MG PO (10:11)
[2022-12-02] MEDS: oxyCODONE 20 mg ER (12 HR) Tablet PO (10:11)
[2022-12-02] MEDS: gabapentin 300 mg Capsule PO (10:12)
[2022-12-02] MEDS: acetaminophen 500 mg Tablet 1000 MG PO ×2 (10:12→17:58)
[2022-12-02 10:25] LABS: Glucose Point of Care 103 mg/dL (70-110)
--- NOTE | 2022-12-02 11:18 | W.PM.OPSFHP ---
Same Day Surgery H&P Indication for Procedure/HPI DATE OF PROCEDURE: December 02, 2022 CHIEF COMPLAINT/INDICATIONFOR SURGICAL PROCEDURE: Osteoarthritis left hip here for left total hip arthroplasty PREOP DIAGNOSIS: Osteoarthritis left hip PLANNED PROCEDURE: Operation Date: 12/02/22 11:15 Proposed Procedures p Total Hip Arthroplasty(Left) - Shaquille Dutton MD The patient is a 62-year-old male with severe left hip pain attributable to osteoarthritis. He has additional history of a rheumatoid arthritis. He is walker dependent due to pain in his hips. He underwent a right total hip arthroplasty in August and did wonderfully well. He is here now for his left Medications/Allergies* Home Medications Medication Instructions Recorded Confirmed Type atorvastatin 20 mg tablet 20 mg PO DAILY 12/02/19 12/02/22 History celecoxib 200 mg capsule (Celebrex) 200 mg PO BID 12/02/19 12/02/22 History hydrocodone 10 mg-acetaminophen 1 tab PO Q6H PRN Pain 12/02/19 12/02/22 History 325 mg tablet oxybutynin chloride 5 mg tablet 5 mg PO DAILY 12/02/19 12/02/22 History allopurinol 100 mg tablet 100 mg PO DAILY 09/07/20 12/02/22 History cholecalciferol (vitamin D3) 50 50 mcg PO DAILY 03/27/21 12/02/22 History mcg (2,000 unit) capsule duloxetine 60 mg capsule,delayed 60 mg PO DAILY 03/27/21 12/02/22 History release terazosin 5 mg capsule 5 mg PO BID 03/27/21 12/02/22 History bumetanide 2 mg tablet 2 mg PO DAILY 09/11/21 12/02/22 History gabapentin 800 mg tablet 1,200 mg PO TID 09/11/21 12/02/22 History semaglutide 2 mg/dose (8 mg/3 mL) See Rx Instructions .Route .COMPLEX 08/16/22 11/26/22 History subcutaneous pen injector (Ozempic) testosterone cypionate 200 mg/mL 200 mg IM 10/30/22 11/26/22 History intramuscular oil torsemide 10 mg tablet 10 mg PO DAILY 10/30/22 12/02/22 History Allergies/Adverse Reactions Allergy/AdvReac Type Severity Reaction Status Date / Time Penicillins Allergy ALGY-Rash Verified 11/26/22 09:44 Current Medications: Generic Name Dose Route Start Last Admin Trade Name Cee PRN Reason Stop Dose Admin Sodium Chloride 1,000 mls @ 30 mls/hr 12/02/22 09:45 12/02/22 10:10 Sodium Chloride 0.9% IV 12/03/22 09:44 30 mls/hr .Q24H SALLIE Administration Pertinent History/Comorbid Conditions* Medical History (Updated 11/26/22 @ 10:37 by Shaquille Dutton MD) Afib Cardiomyopathy Chronic atrial fibrillation Chronic back pain Diabetes High risk medication use High risk medication use joint pain Hx of deep venous thrombosis Hypertension Leg edema PRIYA (obstructive sleep apnea) Osteoarthritis involving multiple joints on both sides of body Plaque psoriasis Hip OA -followup with Orthopedics for injections Psoriatic arthritis Vitamin D deficiency Surgical History (Updated 11/25/22 @ 08:45 by Jayme Simpson NP) Status post right hip replacement Family History (Updated 09/07/20 @ 10:13 by Yazmin Pichardo RN) Rheumatoid arthritis Diabetes Sister Dementia Mother Cancer Father Brother Hypertension Father Brother Stroke Father Denies family history of Lupus CAD (coronary artery disease) Clotting disorder Chronic kidney disease (CKD) Suicide Anesthesia complication Bleeding disorder Lung disease Social History Smoking and tobacco status: never smoked Alcohol intake: never Substance/Drug Use: never Pertinent Exam Findings alert, oriented x 3, clear to auscultation bilaterally, regular rate & rhythm, operative site marked and procedure specific exam findings The left hip can be flexed to 90 degrees and he has no internal or external rotation MOTOR: Strong quadriceps hamstrings tibialis anterior and extensor houses longus strength SENSATION: Intact to light touch He has a strong left dorsalis pedis pulse. Recommendations Surgery/Procedure today Coding Level of Care Code Acute Code for Chg Fwd Diagnoses
[2022-12-02] MEDS: ceFAZolin 2,000 MG in sodium chloride 0.9% (plus) 50 ML 100 MG IV ×2 (12:02→20:20)
--- NOTE | 2022-12-02 12:28 | P.ANESUD_ITS ---
Pre-Anesthetic Update Pre-Anesthetic Assessment: Date of Surgery/Procedure: 12/02/22 Preop Karoline gnosis: Osteoarthritis left hip Proposed Procedure: Operation Date: 12/02/22 11:15 Proposed Procedures p Total Hip Arthroplasty(Left) - Shaquille Dutton MD Any changes to Pre-Anesthetic Assessment?: No Last Intake: Intake Last Liquid Date 12/01/22 Last Liquid Time 17:00 Last Solid Date 12/01/22 Last Solid Time 17:00 Vitals: Temperature 97.9 F 12/02/22 10:01 Temperature Source Temporal Artery S can 12/02/22 10:01 Pulse Rate 82 12/02/22 10:01 Respiratory Rate 16 12/02/22 10:01 Blood Pressure 122/73 12/02/22 10:01 Blood Pressure Maribell n 89 12/02/22 10:01 Pulse Oximetry 94 12/02/22 10:01 Oxygen Delivery Me thod Room Air 12/02/22 10:01 Exam: Pre-Anes Outpt Exam: alert, oriented x 3, clear to auscultation bilaterally and regular rate & rhythm Cardiac Studies: Echocardiogram 10/30/22 Echocardiogram Ultrasound 07/12/20
[2022-12-02] MEDS: tranexamic acid 1,000 mg/10mL SDV 1000 MG IV (12:30)
[2022-12-02] MEDS: sodium chloride 0.9% 100 mL Bag XX (12:46)
--- NOTE | 2022-12-02 13:49 | XR_ITS ---
WS: [id number] EXAMINATION: XR hip LT 1V wo/w pel [id number] REASON FOR EXAM: Left total hip arthroplasty COMPARISON: 11/26/2022 ORDER DATE: 12/02/2022 1:49 PM TECHNIQUE: Frontal internal/external rotation views of the left hip were obtained. X-RAY FINDINGS/ There has been placement of a total hip prosthesis since the previous study A single AP view demonstrates no evidence of abnormality with postoperative soft tissue change. IMPRESSION 1. As above.
--- NOTE | 2022-12-02 13:59 | PM.OP ---
Operative Report Date of procedure: December 02, 2022 Pre-op diagnosis: Preop Diagnosis Osteoarthritis left hip Post-op diagnosis: same Post-op diagnosis: Same Procedure done: Left total hip arthroplasty Implants: 1) Laquita 62 mm Trident 2 solid back acetabular shell 2) Size 6 [place] 127 degree neck angle Accolade 2 stem 3} 28mm standard ceramic femoral head 4} Size G MDM metal liner Pathology: none sent Surgeon: Shaquille Dutton Import Export Manager: Henry Darby Import Export Manager: The nurse practitioner assisted with critical portions of the case including positioning, exposure, implantation of components, closure, and postoperative abduction pillow application. Findings: The patient has severe degenerative changes of the left femoral head with eburnation of the acetabulum and femoral head. Some collapse of the femoral head and large peripheral osteophytes were identified Condition: stable Disposition: PACU Procedure: The patient was taken to the operating room and anesthesia provided by the anesthesia service. The patient was placed in the lateral position on a pegboard. A timeout was performed. The patient was draped in the usual fashion. A 15 cm long incision was made beginning just proximal to the greater trochanter and extending posteriorly to a point just distal to the trochanter on the posterior border of the trochanter. Dissection was carried down with electrocautery through the subcutaneous fat to the fascia niraj which was divided proximally and distally with curved scissors. The anterior two thirds of the gluteus medius and minimus were elevated off the hip with electrocautery. The capsule was divided in a H-like fashion. The hip was dislocated and a neck cut made just above the level of the lesser trochanter. Exposure of the acetabulum was facilitated with the acetabular retractors. Remnants of labrum and peripheral osteophytes were removed with electrocautery and a rongeur. A reamer 2 mm under the size the femoral head was utilized to ream medially to the base of the palm and are. Reaming was then increased in 1 mm intervals until a healthy rim a trabecular bone was encountered. The rim was touched with the reamer the size of the final acetabular shell to be placed. A final Trident 2 acetabular cup of the same size as the final reaming was press-fit into place. The ADM liner was secured. Attention was then focused on the femur. The canal was localized with a canal finder. Broaching was then accomplished until a stable broach size was obtained. A trial reduction with the head and neck provided excellent stability. The wound was irrigated with saline and antibiotic solution. The final Laquita Accolade II stem was press-fit into place. The femoral head was placed and the hip was reduced. The hip was brought through range of motion and found to be free of impingement and stable. The anterior capsule was reapproximated with 1 Ethibond. The gluteus medius and minimus were repaired through bone with 5 Ethibond and reinforced with 1 Ethibond. The fascial niraj was closed with a running 0 Stratafix suture. Deep pelvic tissues were closed with 2-0 Stratafix and the skin with a running 4-0 l Stratafix. The skin was covered with a Prineo dressing and op site dressings.
[2022-12-02] MEDS: fentaNYL 50 mcg/mL INJ 2mL IVP (14:23)
--- NOTE | 2022-12-02 14:37 | ANE.PACU2 ---
Inpatient post-anesthesia follow up: Airway intact: Yes Vital signs: Temperature 97.0 F Pulse Rate 58 Respiratory Rate 18 Blood Pressure 106/69 Pulse Oximetry 97 Oxygen Delivery Me thod Room Air Oxygen Flow Rate Fraction of Inspir ed Oxygen Hydration adequate: Yes Nausea and vomiting: No Pain level: 2 Mental status: Baseline
[2022-12-02 16:36] LABS: Glucose Point of Care 141 mg/dL (70-110)
[2022-12-02] MEDS: oxyCODONE 5 mg IR Tab/Cap 10 MG PO ×2 (17:57→21:17)
[2022-12-02] MEDS: sennosides-docusate Tablet 2 TAB PO (17:58)
[2022-12-02] MEDS: terazosin 5 mg Capsule PO (20:21)
[2022-12-02] MEDS: CELEcoxib 200 mg Capsule PO (20:21)
--- NOTE | 2022-12-02 20:34 | PC.NURSE ---
pt stated that he does not take 1200 mg of gabapentin at nigt, he is taking 800 mg in AM, 400 mg at noon and at night. 400 mg given as pt requested
[2022-12-02 21:46] LABS: Glucose Point of Care 115 mg/dL (70-110)
[2022-12-03] VITALS (8 sets, daily range): BP systolic 97–109; BP diastolic 60–65; PULSE 75–98; RESP 16–20; TEMP 36.6–36.9; O2SAT 93–100
[2022-12-03] MEDS: oxyCODONE 5 mg IR Tab/Cap 10 MG PO ×4 (00:18→09:56)
[2022-12-03] MEDS: acetaminophen 500 mg Tablet 1000 MG PO ×2 (02:22→09:54)
[2022-12-03] MEDS: ceFAZolin 2,000 MG in sodium chloride 0.9% (plus) 50 ML 100 MG IV (03:39)
[2022-12-03 04:24] LABS: Hemoglobin 10.5 g/dL (11.7-16.6)
[2022-12-03 06:44] LABS: Glucose Point of Care 120 mg/dL (70-110)
--- NOTE | 2022-12-03 07:56 | PC.PHAR ---
unable to update pts med rec has pts discharge orders entered-ext med history shows prednisone 10mg take 2 tabs daily filled 11/29/22 9d/s,medrol dose ashley filled 11/26/22 6d/s and mupirocin 2% ointment filled 11/21/22 30d/s
--- NOTE | 2022-12-03 08:58 | P.DS_ITS ---
Discharge Providers Date of Admission: 12/02/22 13:23 Date of Discharge: December 03, 2022 Attending Provider at Admission: Shaquille Jones MD Attending Provider at Discharge: Shaquille Jones MD Primary Care Provider: Mckenna Rodriguez Diagnoses at Discharge Discharge Diagnosis (1) Status post left hip replacement: Status: Acute (2) Rheumatoid arthritis: Status: Acute (3) Osteoarthritis, hip, bilateral: Status: Resolved (4) Chronic atrial fibrillation: Status: Acute Reason for Visit Reason for Visit: Brief History: 62-year-old male with rheumatoid arthritis and additional severe degenerative changes in the left hip. Admitted for elective left total hip arthroplasty Hospital Course Hospital Course The patient tolerated surgery well. They remained hemodynamically stable. They was begun on his regular dosages of Xarelto and sequential compression dressings for DVT prophylaxis. The patient was mobilized with therapy beginning the day of surgery and by the first postoperative day independent with the walker. As the pain was adequately controlled and they were fully mobile they were discharged home. Physical Exam Narrative: On the day of discharge the hip incision was clean. The incision was free of drainage. They had no particular swelling about the thigh or distal. No distal neurovascular deficits were noted. Discharge Data Studies Completed and Pending Completed Studies During Hospitalization Category Date Time Status XR hip LT 1V wo/w pel [id number] Routine Exams 12/02/22 13:49 Completed Laboratory Results Hgb 10.5 g/dL (11.7-16.6) L 12/03/22 04:13 POC Glucose 120 mg/dL (70-110) H 12/03/22 06:35 Vitals Last Vital Signs Temp 98.4 F 12/03/22 07:55 Pulse 84 12/03/22 07:55 Resp 16 12/03/22 07:55 BP 99/61 12/03/22 07:55 Pulse Ox 96 12/03/22 07:55 O2 Del Method Room Air 12/03/22 04:00 Discharge Plan Discharge Patient Disposition: Home Condition: Stable Prescriptions: New oxycodone 5 mg Tablet 10 mg PO Q3H PRN (Reason: Severe Pain) 7 Days Qty: 40 0RF acetaminophen 500 mg Tablet 1,000 mg PO Q8H 14 Days Qty: 84 0RF Continued allopurinol 100 mg tablet 100 mg PO DAILY bumetanide 2 mg tablet 2 mg PO DAILY celecoxib [Celebrex] 200 mg capsule 200 mg PO BID oxybutynin chloride 5 mg tablet 5 mg PO DAILY atorvastatin 20 mg tablet 20 mg PO DAILY gabapentin 800 mg tablet 1,200 mg PO TID Humira Pen 40 mg/0.8 mL pen injector kit See Rx Instructions SUBCUT .COMPLEX Qty: 4 5RF Rx Instructions: inject one - 40 mg/0.8 mL pen every 2 weeks SUBCUT (DME) Diabetic Shoes See Rx Instructions .ROUTE .MEDSUPPLY Qty: 1 0RF Rx Instructions: As directed (DME) MIRA PLUNKETT See Rx Instructions .ROUTE .MEDSUPPLY Qty: 1 0RF Rx Instructions: As directed terazosin 5 mg capsule 5 mg PO BID cholecalciferol (vitamin D3) 50 mcg (2,000 unit) capsule 50 mcg PO DAILY duloxetine 60 mg capsule,delayed release(DR/EC) 60 mg PO DAILY amiodarone 200 mg tablet 200 mg PO DAILY Qty: 90 3RF Xarelto 20 mg tablet 20 mg PO DAILY Qty: 90 3RF Rx Instructions: must administer with evening meal torsemide 10 mg tablet 10 mg PO DAILY Hold Instructions: Resume on 11/16/22. testosterone cypionate 200 mg/mL oil 200 mg IM Rx Instructions: as directed Ozempic 2 mg/dose (8 mg/3 mL) Pen Injector See Rx Instructions .ROUTE .COMPLEX Rx Instructions: as directed Discontinued hydrocodone-acetaminophen 10-325 mg tablet 1 tab PO Q6H PRN (Reason: Pain) Discharge Orders: Discharge Order (Routine); Ordered 12/03/22 Ordered By: Shaquille Jones Referrals: Shaquille Jones MD [Physician] - 12/24/22 10:15 am Discharge Activity: Limit activity as instructed Patient Instructions: Opioid Safety Activity Restrictions/Additional Instructions: Okay to shower. No soaking incision in tub Apply FirstIce up to 20 min/hr for pain and swelling Take Tylenol 500mg (up to 2 tabs) 3 times a day for mild pain Take a for breakthrough pain. Exercises per physical therapy. May weight-bear as tolerated on total hip arthroplasty IF HAVE ANY PROBLEMS OR QUESTIONS CALL [facility] AT AND ASK TO HAVE DR. JONES PAGED. Discharge Attestations Time Spent in Discharge Care*: other Status at Discharge: Cognitive status at discharge: cognitively intact , Behavioral status at discharge: cooperative , Quality Metrics Clinical Quality Measures [ No reported AMI, CVA or VTE this stay] Coding Level of Care Code Acute Code for Chg Fwd Diagnoses Status post left hip replacement Z96.642 Rheumatoid arthritis M06.9 Osteoarthritis, hip, bilateral M16.0 Chronic atrial fibrillation I48.20
[2022-12-03] MEDS: CELEcoxib 200 mg Capsule PO (09:53)
[2022-12-03] MEDS: rivaroxaban 10 mg Tablet 20 MG PO (09:53)
[2022-12-03] MEDS: sennosides-docusate Tablet 2 TAB PO (09:53)
[2022-12-03] MEDS: allopurinol 100 mg Tablet PO (09:53)
[2022-12-03] MEDS: terazosin 5 mg Capsule PO (09:53)
[2022-12-03] MEDS: duloxetine 60 mg Capsule PO (09:53)
[2022-12-03] MEDS: gabapentin 400 mg Capsule 1200 MG PO (09:54)
[2022-12-03] MEDS: amiodarone 200 mg Tablet PO (09:54)
[2022-12-03] MEDS: atorvastatin 40 mg Tablet 20 MG PO (09:55)
[2022-12-03] MEDS: TORSEmide 20 mg Tablet 10 MG PO (09:55)
[2022-12-03] MEDS: bumetanide 1 mg Tablet 2 MG PO (09:55)
[2022-12-03 10:47] LABS: Glucose Point of Care 171 mg/dL (70-110)
--- NOTE | 2022-12-03 11:11 | PC.NURSE ---
Patient wishing to see PT prior to discharge. PT in room with patient now. Will discharge following this.
== END 2022-12-03 12:22 | disposition home health service (06) ==
LOC: MEDSURG 13:23
PROVIDERS: Admitting Provider Orthopaedic Surgery; PCP Registered Nurse; Visit Provider Orthopaedic Surgery
PROC: (CPT 27130; principal; 2022-12-02 11:15)
DX: M16.12 Unilateral primary osteoarthritis, left hip (principal); Z79.01 Long term (current) use of anticoagulants; I48.91 Unspecified atrial fibrillation; I50.9 Heart failure, unspecified; Z86.718 Personal history of other venous thrombosis and embolism; E11.9 Type 2 diabetes mellitus without complications; E78.5 Hyperlipidemia, unspecified; E66.01 Morbid (severe) obesity due to excess calories; Z68.41 Body mass index [BMI] 40.0-44.9, adult; Z79.891 Long term (current) use of opiate analgesic; M06.9 Rheumatoid arthritis, unspecified; Z79.899 Other long term (current) drug therapy; I11.0 Hypertensive heart disease with heart failure; Z79.85 Long-term (current) use of injectable non-insulin antidiabetic drugs; Z96.641 Presence of right artificial hip joint; G47.33 Obstructive sleep apnea (adult) (pediatric)
CPT/HCPCS: 27130; 36415; 36416; 73501; 82962; 85018; 97110; 97116; 97161; 97165; 97530; C1776; G0378; J0690; J1580; J2250; J2704; J3010; J7030

== ENCOUNTER → 2022-12-31 08:38 | Outpatient (BNVA) | payer MEDICARE, MEDICAID, SELFPAY | PROVIDERS: PCP Registered Nurse; Visit Provider Nurse Practitioner Family | DX: Z96.642 Presence of left artificial hip joint (principal) | CPT/HCPCS: 73502; 99024 ==

== ENCOUNTER → 2023-04-24 08:09 | Outpatient (BNVA) | payer MEDICARE, MEDICAID, SELFPAY | PROVIDERS: PCP Registered Nurse; Referring Provider Registered Nurse; Visit Provider Podiatrist Foot & Ankle Surgery | DX: E11.65 Type 2 diabetes mellitus with hyperglycemia; M06.9 Rheumatoid arthritis, unspecified; L40.50 Arthropathic psoriasis, unspecified; M25.871 Other specified joint disorders, right ankle and foot; M25.371 Other instability, right ankle; M76.821 Posterior tibial tendinitis, right leg | CPT/HCPCS: 73630; 99203 ==

== ENCOUNTER → 2023-06-10 08:06 | Outpatient (BNVA) | payer MEDICARE, MEDICAID, SELFPAY | PROVIDERS: PCP Registered Nurse; Visit Provider Nurse Practitioner Family | DX: L40.0 Psoriasis vulgaris (principal); L91.8 Other hypertrophic disorders of the skin; L89.151 Pressure ulcer of sacral region, stage 1; L57.8 Other skin changes due to chronic exposure to nonionizing radiation; L81.4 Other melanin hyperpigmentation; L73.8 Other specified follicular disorders; D22.4 Melanocytic nevi of scalp and neck | CPT/HCPCS: 11200; 99204 ==